=== PATIENT | female | born 1960 | race African-American/Black ===

== ENCOUNTER 2016-12-27 16:11 | Observation (INO) | payer OTHER ==
[~2016-12-27] VITALS: Ht 167.6 cm; Wt 90.0 kg
[~2016-12-27 16:11] MED LIST: AMLO5TAB2 PO; APIX5TAB PO; FLEC100T PO; HYDR-3516 PO; METO50TA PO; TOPA25TA8 PO; VALS320T6 PO; ZOLP10TA3 PO
[2016-12-27 16:13] VITALS: BP 201/113; PULSE 89; RESP 15; TEMP 97.7; O2SAT 100
--- NOTE | 2016-12-27 16:52 | PD ---
Physical Exam Time Seen by Provider: 16:50 Narrative 56 y/o female here with sob, dizziness for 4 days. Currently has a loop recorder, was called by Dr. Haq yesterday and was told that she has been having episodes of tachycardia as high as 200 on the loop recorder the past few days. Vital signs reviewed. Seen at triage desk. Awaiting bed placement. Data Data Last Documented VS Vital Signs Date Time Temp Pulse Resp B/P Pulse Ox O2 Delivery O2 Flow Rate FiO2 12/27/16 16:13 97.7 89 15 201/113 100 MDM Medical Record Reviewed: Yes Supervised Visit with ENEDINA: No Saul Craft Dec 27, 2016 16:52
--- NOTE | 2016-12-27 17:48 | RADRPT ---
EXAM DATE/TIME: 12/27/2016 17:15 [facility] COMPARISON: CHEST SINGLE AP, April 13, 2016, 22:05. INDICATIONS : Chest pain. MEDICAL HISTORY : Hypertension. SURGICAL HISTORY : Loop recorder. ENCOUNTER: Initial ACUITY: 4 - 6 days PAIN SCORE: 10/10 LOCATION: Bilateral chest FINDINGS: A single view of the chest demonstrates the lungs to be symmetrically aerated without evidence of mas s, infiltrate or effusion. Elevated right hemidiaphragm. Loop recorder device. The cardiomediastinal contours are unremarkable. Osseous structures are intact. CONCLUSION: 1. No active disease. No significant change from March 2016. Lawson Quinones MD on December 27, 2016 at 17:46 Board Certified Radiologist. This report was verified electronically.
[2016-12-27 17:54] LABS: AUTOMATED NEUTROPHIL # 4.8 TH/MM3 (1.8-7.7); BASOPHIL # 0.1 TH/MM3 (0-0.2); BASOPHIL % 0.7 % (0.0-2.0); EOSINOPHIL # 0.1 TH/MM3 (0-0.4); EOSINOPHIL % 0.7 % (0.0-4.0); HEMATOCRIT 37.1 % (35.0-46.0); HEMO FLAGS DIFF FINAL; LYMPH % 38.3 % (9.0-44.0); LYMPHOCYTE # 3.4 TH/MM3 (1.0-4.8); MEAN CELL VOLUME 71.3 FL (80.0-100.0); MEAN CORPUSCULAR HEMOGLOBIN 22.5 PG (27.0-34.0); MEAN CORPUSCULAR HGB CONC 31.6 % (32.0-36.0); MONO % 6.4 % (0.0-8.0); NEUT % 53.9 % (16.0-70.0); PLATELET COUNT 331 TH/MM3 (150-450); RED CELL DISTRIBUTION WIDTH 14.7 % (11.6-17.2); WHITE BLOOD COUNT 8.9 TH/MM3 (4.0-11.0)
[2016-12-27 18:05] LABS: ALT (GPT) 20 U/L (10-53); ANION GAP 6 MEQ/L (5-15); AST (GOT) 15 U/L (15-37); BICARBONATE 30.8 MEQ/L (21.0-32.0); BLOOD UREA NITROGEN 11 MG/DL (7-18); CHLORIDE 104 MEQ/L (98-107); GLOMERULAR FILTRATION RATE 104 ML/MIN (>89); POTASSIUM 3.2 MEQ/L (3.5-5.1); SODIUM (NA) 141 MEQ/L (136-145)
[2016-12-27 18:09] LABS: ALKALINE PHOSPHATASE 134 U/L (45-117); CREATINE KINASE 216 U/L (26-192); TOTAL BILIRUBIN ADULT 0.3 MG/DL (0.2-1.0)
[2016-12-27 18:52] VITALS: BP 195/91; PULSE 81; RESP 20; O2SAT 98
[2016-12-27] MEDS ORDERED: NITROGLYCERIN 0.4 MG SL 25 TABS/BTL SL ONE (18:55)
[2016-12-27] MEDS ORDERED: BUTA1CAP10 PO (19:01)
[2016-12-27 19:07] VITALS: BP 160/93; RESP 16; O2SAT 98
[2016-12-27] MEDS: NITROGLYCERIN 0.4 MG SL 25 TABS/BTL SL SCH ×2 (19:08→19:09)
[2016-12-27] MEDS ORDERED: METOPROLOL TARTRATE 25 MG TAB PO ONE (19:15)
[2016-12-27] MEDS ORDERED: APIXABAN 5 MG TABLET PO ONE (19:15)
[2016-12-27] MEDS ORDERED: ASPIRIN 81 MG CHEW TAB PO ONE (19:15)
[2016-12-27] MEDS ORDERED: NITROGLYCERIN 2% OINT 1 GM PACKET TOPICAL ONE (19:15)
--- NOTE | 2016-12-27 19:19 | PD ---
HPI Chief Complaint: Cardiac Complaint Time Seen by Provider: 19:00 Travel History International Travel<30 days: No Contact w/Intl Traveler<30days: No Traveled to known affect area: No History of Present Illness HPI Patient's 56-year-old female presenting to the emergency room for evaluation of dizziness, racing heart rate, shortness of breath and chest pain. Patient states she is a loop recorder and was advised by Dr. Castaneda to come to the emergency department yesterday because her heart rate was greater than 200, she was notified again today that she had a similar episode and was once again advised to come to the emergency department. Patient states that she started feeling these symptoms on Monday but ignored it throughout the weekend figuring that she would be called if there was any abnormality. She is currently reporting an 8 out of 10 anterior chest wall pain. She also reports a headache with the same intensity that is frontal and throbbing in nature. She denies any weakness, abdominal pain, recent fevers, visual changes. Her primary care provider is Dr. Gianfranco Hdez. Past medical history significant for hypertension , atrial fibrillation status post ablation in March 2016, implanted loop recorder. Patient is currently on Eliquis. [facility] Past Medical History Hx Anticoagulant Therapy: Yes (Eliquis) Arthritis: Yes Asthma: Yes Atrial Fibrillation: Yes Autoimmune Disease: No Blood Disorders: No Anxiety: No Depression: No Cancer: No Cardiac Catheterization: Yes (2015) High Cholesterol: Yes Chemotherapy: No Chest Pain: Yes Congestive Heart Failure: Yes COPD: No Cerebrovascular Accident: No Coronary Artery Disease: Yes Diabetes: Yes Patient Takes Glucophage: No Diminished Hearing: No Endocrine: No Gastrointestinal Disorders: Yes GERD: No Glaucoma: No Genitourinary: Yes Headaches: Yes Hepatitis: No Hiatal Hernia: No Hypertension: Yes Immune Disorder: No Implanted Vascular Access Dvce: No Kidney Stones: Yes Musculoskeletal: Yes Neurologic: Yes Psychiatric: No Reproductive: No Immunizations Current: Yes Migraines: No Myocardial Infarction: No Renal Failure: No Seizures: No Sickle Cell Disease: No Sleep Apnea: No Thyroid Disease: Yes Ulcer: No ?: Not Menopausal: Yes Past Surgical History Abdominal Surgery: Yes AICD: No Appendectomy: Yes Arteriovenous Shunt: No Cardiac Surgery: Yes (ATRIAL ABLATION/ LOOP RECORDER) Cholecystectomy: No Ear Surgery: No Endocrine Surgery: No Eye Surgery: No Genitourinary Surgery: Yes (TUMOR REMOVED LEFT KIDNEY MAY 2010) Hysterectomy: Yes Insulin Pump: No Joint Replacement: No Neurologic Surgery: No Oral Surgery: No Pacemaker: No Thoracic Surgery: No Other Surgery: Yes Social History Alcohol Use: No Tobacco Use: No Substance Use: No Allergies-Medications (Allergen,Severity, Reaction): Coded Allergies: Lisinopril (Verified Allergy, Severe, 12/27/16) muscle ache Percocet (Verified Adverse Reaction, Severe, 12/27/16) nausea and vomiting Reported Meds & Prescriptions Reported Meds & Active Scripts Active Reported Esgic (Epglnakukc-Dxjmbrkojioyc-Jdxgrlfe) 50-325-40 Mg Cap 1 Cap PO Q4H PRN Do not exceed 6 capsules/day. Zolpidem (Zolpidem Tartrate) 10 Mg Tab 10 Mg PO HS PRN Flecainide (Flecainide Acetate) 100 Mg Tab 100 Mg PO Q12HR Metoprolol Tartrate 50 Mg Tab 50 Mg PO TID Valsartan-Hydrochlorothiazide 320-25 Mg Tab 1 Tab PO DAILY Eliquis (Apixaban) 5 Mg Tab 5 Mg PO BID Amlodipine (Amlodipine Besylate) 5 Mg Tab 5 Mg PO DAILY Review of Systems Except as stated in HPI: all other systems reviewed are Neg Cardiovascular: Positive: Chest Pain or Discomfort, Tachycardia Respiratory: Positive: Shortness of Breath Gastrointestinal: Positive: Nausea, No: Vomiting, Abdominal Pain Musculoskeletal: No: Myalgias Neurologic: Positive: Dizziness, Headache, No: Change in Mentation, Slurred Speech Physical Exam Narrative GENERAL: Well-developed, well-nourished, alert female. Appears uncomfortable, in no acute distress. SKIN: Warm and dry. HEAD: Atraumatic. Normocephalic. EYES: Pupils equal and round. No scleral icterus. No injection or drainage. ENT: No nasal bleeding or discharge. Mucous membranes pink and moist. NECK: Trachea midline. No JVD. CARDIOVASCULAR: Regular rate and rhythm. RESPIRATORY: No accessory muscle use. Clear to auscultation. Breath sounds equal bilaterally. GASTROINTESTINAL: Abdomen soft, non-tender, nondistended. Hepatic and splenic margins not palpable. MUSCULOSKELETAL: Extremities without clubbing, cyanosis, or edema. No obvious deformities. NEUROLOGICAL: Awake and alert. No obvious cranial nerve deficits. Motor grossly within normal limits. Five out of 5 muscle strength in the arms and legs. Normal speech. PSYCHIATRIC: Appropriate mood and affect; insight and judgment normal. Data Data Last Documented VS Vital Signs Date Time Temp Pulse Resp B/P Pulse Ox O2 Delivery O2 Flow Rate FiO2 12/27/16 19:07 16 160/93 98 Room Air 12/27/16 18:52 81 12/27/16 16:13 97.7 Orders Electrocardiogram (12/27/16 16:53) Ckmb (Isoenzyme) Profile (12/27/16 16:53) Complete Blood Count With Diff (12/27/16 16:53) Comprehensive Metabolic Panel (12/27/16 16:53) Magnesium (Mg) (12/27/16 16:53) Troponin I (12/27/16 16:53) Chest, Single Ap (12/27/16 16:53) CKMB (12/27/16 17:25) CKMB% (12/27/16 17:25) Electrocardiogram (12/27/16 18:54) B-Type Natriuretic Peptide (12/27/16 18:54) Magnesium (Mg) (12/27/16 18:54) Ecg Monitoring (12/27/16 18:54) Bilateral Bp Monitoring (12/27/16 18:54) Iv Access Insert/Monitor (12/27/16 18:54) Oximetry (12/27/16 18:54) Nitroglycerin Sl (Nitrostat Sl) (12/27/16 19:00) Ct Brain W/O Iv Contrast(Rout) (12/27/16 ) Nitroglycerin Sl (Nitrostat Sl) (12/27/16 18:55) Aspirin Chew (Aspirin Chew) (12/27/16 19:15) Metoprolol Tartrate (Lopressor) (12/27/16 19:15) Apixaban (Eliquis) (12/27/16 19:15) Nitroglycerin 2% Oint (Nitroglycerin 2% (12/27/16 19:15) Amlodipine (Norvasc) (12/28/16 09:00) Apixaban (Eliquis) (12/27/16 21:00) Arom-Fyepe-Taam 325-50-40 Mg (Fioricet 3 (12/27/16 19:30) Flecainide (Tambocor) (12/27/16 21:00) Metoprolol Tartrate (Lopressor) (12/28/16 09:00) Zolpidem (Ambien) (12/27/16 19:30) (Nf) Valsartan-Hydrochlorothiazide (12/28/16 09:00) Admit Order (Ed Use Only) (12/27/16 19:19) Labs Laboratory Tests Test 12/27/16 17:25 White Blood Count 8.9 TH/MM3 Red Blood Count 5.20 MIL/MM3 Hemoglobin 11.7 GM/DL Hematocrit 37.1 % Mean Corpuscular Volume 71.3 FL Mean Corpuscular Hemoglobin 22.5 PG Mean Corpuscular Hemoglobin 31.6 % Concent Red Cell Distribution Width 14.7 % Platelet Count 331 TH/MM3 Mean Platelet Volume 9.6 FL Neutrophils (%) (Auto) 53.9 % Lymphocytes (%) (Auto) 38.3 % Monocytes (%) (Auto) 6.4 % Eosinophils (%) (Auto) 0.7 % Basophils (%) (Auto) 0.7 % Neutrophils # (Auto) 4.8 TH/MM3 Lymphocytes # (Auto) 3.4 TH/MM3 Monocytes # (Auto) 0.6 TH/MM3 Eosinophils # (Auto) 0.1 TH/MM3 Basophils # (Auto) 0.1 TH/MM3 CBC Comment DIFF FINAL Differential Comment Sodium Level 141 MEQ/L Potassium Level 3.2 MEQ/L Chloride Level 104 MEQ/L Carbon Dioxide Level 30.8 MEQ/L Anion Gap 6 MEQ/L Blood Urea Nitrogen 11 MG/DL Creatinine 0.70 MG/DL Estimat Glomerular Filtration 104 ML/MIN Rate Random Glucose 79 MG/DL Calcium Level 9.5 MG/DL Magnesium Level 2.0 MG/DL Total Bilirubin 0.3 MG/DL Aspartate Amino Transf 15 U/L (AST/SGOT) Alanine Aminotransferase 20 U/L (ALT/SGPT) Alkaline Phosphatase 134 U/L Total Creatine Kinase 216 U/L Creatine Kinase MB 1.0 NG/ML Creatine Kinase MB % 0.5 % Troponin I LESS THAN 0.02 NG/ML Total Protein 8.5 GM/DL Albumin 3.8 GM/DL MDM Medical Decision Making Medical Screen Exam Complete: Yes Emergency Medical Condition: Yes Interpretation(s) Last Impressions Chest X-Ray 12/27/16 7858 Signed Impressions: Service Date/Time: Tuesday, December 27, 2016 17:15 - CONCLUSION: 1. No active disease. No significant change from March 2016. Lawson Quinones MD Laboratory Tests Test 12/27/16 17:25 White Blood Count 8.9 TH/MM3 Red Blood Count 5.20 MIL/MM3 Hemoglobin 11.7 GM/DL Hematocrit 37.1 % Mean Corpuscular Volume 71.3 FL Mean Corpuscular Hemoglobin 22.5 PG Mean Corpuscular Hemoglobin 31.6 % Concent Red Cell Distribution Width 14.7 % Platelet Count 331 TH/MM3 Mean Platelet Volume 9.6 FL Neutrophils (%) (Auto) 53.9 % Lymphocytes (%) (Auto) 38.3 % Monocytes (%) (Auto) 6.4 % Eosinophils (%) (Auto) 0.7 % Basophils (%) (Auto) 0.7 % Neutrophils # (Auto) 4.8 TH/MM3 Lymphocytes # (Auto) 3.4 TH/MM3 Monocytes # (Auto) 0.6 TH/MM3 Eosinophils # (Auto) 0.1 TH/MM3 Basophils # (Auto) 0.1 TH/MM3 CBC Comment DIFF FINAL Differential Comment Sodium Level 141 MEQ/L Potassium Level 3.2 MEQ/L Chloride Level 104 MEQ/L Carbon Dioxide Level 30.8 MEQ/L Anion Gap 6 MEQ/L Blood Urea Nitrogen 11 MG/DL Creatinine 0.70 MG/DL Estimat Glomerular Filtration 104 ML/MIN Rate Random Glucose 79 MG/DL Calcium Level 9.5 MG/DL Magnesium Level 2.0 MG/DL Total Bilirubin 0.3 MG/DL Aspartate Amino Transf 15 U/L (AST/SGOT) Alanine Aminotransferase 20 U/L (ALT/SGPT) Alkaline Phosphatase 134 U/L Total Creatine Kinase 216 U/L Creatine Kinase MB 1.0 NG/ML Creatine Kinase MB % 0.5 % Troponin I LESS THAN 0.02 NG/ML Total Protein 8.5 GM/DL Albumin 3.8 GM/DL Vital Signs Date Time Temp Pulse Resp B/P Pulse Ox O2 Delivery O2 Flow Rate FiO2 12/27/16 18:52 81 20 195/91 98 12/27/16 18:52 72 24 99 Room Air 12/27/16 16:13 97.7 89 15 201/113 100 Differential Diagnosis ACS versus [place] versus Nstemi versus CVA versus hypertensive urgency versus other Narrative Course Patient is a 56-year-old female presenting to the emergency department for evaluation of elevated heart rate on the loop recorder. Upon initial assessment patient was actively having anterior chest wall pain. EKG performed in triage shows sinus rhythm with a rate of 69. IV access established, patient placed on telemetry monitoring and continuous pulse oximetry. She was hypertensive and complaining of a headache. Patient was given sublingual nitroglycerin 2 with significant improvement in the chest pain. Repeat EKG shows sinus rhythm with a rate 76. Labs and imaging were ordered while patient was in triage. CT scan of the brain ordered due to patient's complaint of headache. Chest x-ray shows no active disease, this was read by the radiologist CBC with no acute abnormalities Chemistry with potassium 3.2, CK 216, initial set of cardiac enzymes are negative. CT scan of the brain read by the radiologist shows no acute findings. Discussed findings with Dr. Taylor who was medication aide for Dr. Haq. He requested patient be admitted to medicine, Nitropaste, aspirin and a beta junaid. These orders were placed. Discussed with Dr. Crouch who accepted admission. Admit orders place. Diagnosis Primary Impression: Acute coronary syndrome Additional Impression: HTN (hypertension) Qualified Code: I10 - Hypertension, unspecified type Admitting Information Admitting Physician Requests: Admit Condition: Stable Mary Kearney Dec 27, 2016 19:19
--- NOTE | 2016-12-27 19:26 | HHI.HP ---
HPI Service [facility] Primary Care Physician Gianfranco Hdez M.D. Admission Diagnosis ACS Diagnoses: Travel History International Travel<30 Days: No Contact w/Intl Traveler <30 Da: No Traveled to Known Affected Are: No History of Present Illness This is a very pleasant 56-year-old female patient who sees insurance auditor Dr. Castaneda. She had a atrial fibrillation ablation by Dr. Velázquez several years ago. The patient has been having problems with chest pain and palpitations for the last 4 days prior to her presentation to the emergency department at [facility] on 12/27/16. She initially neglected it thinking that it will pass away. The patient wears a loop recorder. The loop recorder gave an alarm at her insurance auditor office and she was contacted by the insurance auditor on 12/26/16 to come t to the hospital. She did not . She was contacted again on 12/27/16, this time she gained to the emergency department. She was seen by the undersigned and examined on 12/27/16 8 PM in room F 58. She is alert and oriented. She had central chest pressure relieved after 2 sublingual nitroglycerin. She had some lightheadedness worse on standing with some nausea but no vomiting. No fever chills or diaphoresis. The chest pressure is central and does not radiate. It is almost constant. In fact she was able to walk around the room during this interview. Review of Systems Other As detailed above. 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 Zolpidem (Zolpidem Tartrate) 10 Mg Tab 10 Mg PO HS PRN Flecainide (Flecainide Acetate) 100 Mg Tab 100 Mg PO Q12HR Metoprolol Tartrate 50 Mg Tab 50 Mg PO TID Valsartan-Hydrochlorothiazide 320-25 Mg Tab 1 Tab PO DAILY Eliquis (Apixaban) 5 Mg Tab 5 Mg PO BID Amlodipine (Amlodipine Besylate) 5 Mg Tab 5 Mg PO DAILY Allergies: Coded Allergies: Lisinopril (Verified Allergy, Severe, 12/27/16) muscle ache Percocet (Verified Adverse Reaction, Severe, 12/27/16) nausea and vomiting Family History Reviewed but not contributory Social History No smoking or excessive alcohol or illicit drug use Physical Exam Vital Signs Vital Signs Date Time Temp Pulse Resp B/P Pulse Ox O2 Delivery O2 Flow Rate FiO2 12/27/16 18:52 81 20 195/91 98 12/27/16 18:52 72 24 99 Room Air 12/27/16 16:13 97.7 89 15 201/113 100 Physical Exam GENERAL: This is a pleasant, overweight , well-developed patient, in no apparent distress. SKIN: No rashes, ecchymoses or lesions. Cool and dry. HEAD: Atraumatic. Normocephalic. No temporal or scalp tenderness. EYES: Pupils equal round and reactive. Extraocular motions intact. No scleral icterus. No injection or drainage. ENT: Nose without bleeding, purulent drainage or septal hematoma. Throat without erythema, tonsillar hypertrophy or exudate. Uvula midline. Airway patent. NECK: Trachea midline. No JVD or lymphadenopathy. Supple, nontender, no meningeal signs. CARDIOVASCULAR: Tachycardic, irregular . RESPIRATORY: Clear to auscultation. Breath sounds equal bilaterally. No wheezes , rales, or rhonchi. GASTROINTESTINAL: Abdomen soft, non-tender, nondistended. No hepato-splenomegaly , or palpable masses. No guarding. MUSCULOSKELETAL: Extremities without clubbing, cyanosis, or edema. No joint tenderness, effusion, or edema noted. No calf tenderness. Negative Homans sign bilaterally. NEUROLOGICAL: Awake and alert. Cranial nerves II through XII intact. Normal speech. Laboratory Laboratory Tests Test 12/27/16 17:25 White Blood Count 8.9 Red Blood Count 5.20 Hemoglobin 11.7 Hematocrit 37.1 Mean Corpuscular Volume 71.3 Mean Corpuscular Hemoglobin 22.5 Mean Corpuscular Hemoglobin 31.6 Concent Red Cell Distribution Width 14.7 Platelet Count 331 Mean Platelet Volume 9.6 Neutrophils (%) (Auto) 53.9 Lymphocytes (%) (Auto) 38.3 Monocytes (%) (Auto) 6.4 Eosinophils (%) (Auto) 0.7 Basophils (%) (Auto) 0.7 Neutrophils # (Auto) 4.8 Lymphocytes # (Auto) 3.4 Monocytes # (Auto) 0.6 Eosinophils # (Auto) 0.1 Basophils # (Auto) 0.1 CBC Comment DIFF FINAL Differential Comment Sodium Level 141 Potassium Level 3.2 Chloride Level 104 Carbon Dioxide Level 30.8 Anion Gap 6 Blood Urea Nitrogen 11 Creatinine 0.70 Estimat Glomerular Filtration 104 Rate Random Glucose 79 Calcium Level 9.5 Magnesium Level 2.0 Total Bilirubin 0.3 Aspartate Amino Transf 15 (AST/SGOT) Alanine Aminotransferase 20 (ALT/SGPT) Alkaline Phosphatase 134 Total Creatine Kinase 216 Creatine Kinase MB 1.0 Creatine Kinase MB % 0.5 Troponin I LESS THAN 0.02 Total Protein 8.5 Albumin 3.8 Result Diagram: 12/27/16 1725 12/27/16 1725 Imaging Last 24 hours Impressions Chest X-Ray 12/27/16 1653 Signed Impressions: Service Date/Time: Tuesday, December 27, 2016 17:15 - CONCLUSION: 1. No active disease. No significant change from March 2016. Lawson Quinones MD Assessment and Plan Assessment and Plan Assessment Chest pain, rule out acute coronary event Persistent tachycardia at home, none on the hospital Poor compliance Atrial fibrillation on anticoagulation Hypokalemia Management The patient has been placed on observation Serial CKs and troponins are ordered Her insurance auditor is consulted Potassium is being replaced Home medications resumed otherwise The patient was told that she needs a reevaluation for possible repeat ablation Discussed with patient in detail Discussed with emergency provider Discussed with nurse 35 minutes Gay Crouch MD Dec 27, 2016 19:26
[2016-12-27] MEDS ORDERED: LACTULOSE SYRUP 20 GM/30 ML CUP PO PRN (19:30)
[2016-12-27] MEDS ORDERED: SENNOSIDES 8.6 MG TAB PO PRN (19:30)
[2016-12-27] MEDS ORDERED: BISACODYL 10 MG SUPP RECTAL PRN (19:30)
[2016-12-27] MEDS ORDERED: MAGNESIUM HYDROXIDE SUSP 30 ML CUP PO PRN (19:30)
[2016-12-27] MEDS ORDERED: NALOXONE HCL 0.4 MG/ML AMP IV PRN (19:30)
[2016-12-27] MEDS ORDERED: ONDANSETRON HCL 4 MG/2 ML VIAL IVP PRN (19:30)
[2016-12-27] MEDS ORDERED: SODIUM CHLORIDE 0.9% FLUSH 10 ML FLUSH IV FLUSH PRN (19:30)
--- NOTE | 2016-12-27 19:39 | RADRPT ---
EXAM DATE/TIME: 12/27/2016 19:21 [facility] COMPARISON: No previous studies available for comparison. INDICATIONS : Cephalgia and dizziness. RADIATION DOSE: 56.77 CTDIvol (mGy) MEDICAL HISTORY : Hypertension. Congestive heart failure. SURGICAL HISTORY : Cardiac cath. ENCOUNTER: Initial ACUITY: 1 day PAIN SCALE: 10/10 LOCATION: cranial TECHNIQUE: Multiple contiguous axial images were obtained of the head. Using automated exposure control and adj ustment of the mA and/or kV according to patient size, radiation dose was kept as low as reasonably a chievable to obtain optimal diagnostic quality images. DICOM format image data is available electro nically for review and comparison. FINDINGS: CEREBRUM: The ventricles are normal for age. No evidence of midline shift, mass lesion, hemorrhage or acute in farction. No extra-axial fluid collections are seen. POSTERIOR FOSSA: The cerebellum and brainstem are intact. The 4th ventricle is midline. The cerebellopontine angle i s unremarkable. EXTRACRANIAL: The visualized portion of the orbits is intact. SKULL: The calvaria is intact. No evidence of skull fracture. CONCLUSION: 1. No acute intracranial abnormalities. Lawson Quinones MD on December 27, 2016 at 19:37 Board Certified Radiologist. This report was verified electronically.
[2016-12-27 20:51] LABS: CREATINE KINASE 316 U/L (26-192)
[2016-12-27 20:58] VITALS: BP 170/94; PULSE 74; RESP 18; TEMP 98.4; O2SAT 98
[2016-12-27] MEDS: APIXABAN 5 MG TABLET PO SCH (21:00)
[2016-12-27] MEDS: DOCUSATE SODIUM 50 MG/SENNA 8.6 MG TAB PO SCH (21:00)
[2016-12-27 21:55] VITALS: PULSE 50
[2016-12-27] MEDS: FLECAINIDE ACETATE 100 MG TAB PO SCH (21:59)
[2016-12-27] MEDS: SODIUM CHLORIDE 0.9% FLUSH 10 ML FLUSH IV FLUSH SCH (21:59)
[2016-12-27] MEDS: ZOLPIDEM TARTRATE 10 MG TAB PO PRN (22:03)
[2016-12-27] MEDS ORDERED: cloNIDine HCL 0.1 MG TAB PO PRN (23:00)
[2016-12-28] VITALS (13 sets, daily range): BP systolic 123–157; BP diastolic 74–93; PULSE 50–66; RESP 16–20; TEMP 97.8–98.8; O2SAT 96–100
[2016-12-28 01:48] LABS: AUTOMATED NEUTROPHIL # 4.8 TH/MM3 (1.8-7.7); BASOPHIL # 0.1 TH/MM3 (0-0.2); BASOPHIL % 0.7 % (0.0-2.0); EOSINOPHIL # 0.1 TH/MM3 (0-0.4); EOSINOPHIL % 0.8 % (0.0-4.0); HEMATOCRIT 33.3 % (35.0-46.0); HEMO FLAGS DIFF FINAL; LYMPH % 39.2 % (9.0-44.0); LYMPHOCYTE # 3.5 TH/MM3 (1.0-4.8); MEAN CELL VOLUME 71.4 FL (80.0-100.0); MEAN CORPUSCULAR HEMOGLOBIN 23.1 PG (27.0-34.0); MEAN CORPUSCULAR HGB CONC 32.4 % (32.0-36.0); MONO % 6.3 % (0.0-8.0); PLATELET COUNT 287 TH/MM3 (150-450); RED BLOOD COUNT 4.67 MIL/MM3 (4.00-5.30); RED CELL DISTRIBUTION WIDTH 14.8 % (11.6-17.2)
[2016-12-28 01:57] LABS: ANION GAP 7 MEQ/L (5-15); BICARBONATE 28.8 MEQ/L (21.0-32.0); BLOOD UREA NITROGEN 15 MG/DL (7-18); CHLORIDE 107 MEQ/L (98-107); GLOMERULAR FILTRATION RATE 88 ML/MIN (>89); POTASSIUM 3.2 MEQ/L (3.5-5.1); SODIUM (NA) 143 MEQ/L (136-145)
[2016-12-28 02:00] LABS: CREATINE KINASE 156 U/L (26-192)
[2016-12-28] MEDS ORDERED: POTASSIUM CHLORIDE 25 MEQ EFFERVESCENT TAB PO ONE (08:00)
--- NOTE | 2016-12-28 08:04 | HHI.PR ---
Subjective Subjective Remarks chest pain and palpitations overnight, none now tele reviewed, HR 59, SR. One short episode of Afib with RVR no sob no acute changes overnight Review of Systems Constitutional Constitutional Remarks 12 point ros completed, negative except as noted above Vitals/Results Vital Signs Vital Signs Date Time Temp Pulse Resp B/P Pulse Ox O2 Delivery O2 Flow Rate FiO2 12/28/16 05:50 98.4 58 18 133/74 100 12/28/16 01:17 98.7 64 18 123/74 97 12/28/16 00:00 59 12/27/16 21:55 50 12/27/16 20:58 98.4 74 18 170/94 98 12/27/16 19:07 16 160/93 98 Room Air 12/27/16 18:52 81 20 195/91 98 12/27/16 18:52 72 24 99 Room Air 12/27/16 16:13 97.7 89 15 201/113 100 CBC/BMP: 12/28/16 0129 12/28/16 0129 Lab Results Laboratory Tests Test 12/27/16 12/27/16 12/28/16 17:25 19:20 01:29 White Blood Count 8.9 TH/MM3 9.0 TH/MM3 Red Blood Count 5.20 MIL/MM3 4.67 MIL/MM3 Hemoglobin 11.7 GM/DL 10.8 GM/DL Hematocrit 37.1 % 33.3 % Mean Corpuscular Volume 71.3 FL 71.4 FL Mean Corpuscular Hemoglobin 22.5 PG 23.1 PG Mean Corpuscular Hemoglobin 31.6 % 32.4 % Concent Red Cell Distribution Width 14.7 % 14.8 % Platelet Count 331 TH/MM3 287 TH/MM3 Mean Platelet Volume 9.6 FL 9.2 FL Neutrophils (%) (Auto) 53.9 % 53.0 % Lymphocytes (%) (Auto) 38.3 % 39.2 % Monocytes (%) (Auto) 6.4 % 6.3 % Eosinophils (%) (Auto) 0.7 % 0.8 % Basophils (%) (Auto) 0.7 % 0.7 % Neutrophils # (Auto) 4.8 TH/MM3 4.8 TH/MM3 Lymphocytes # (Auto) 3.4 TH/MM3 3.5 TH/MM3 Monocytes # (Auto) 0.6 TH/MM3 0.6 TH/MM3 Eosinophils # (Auto) 0.1 TH/MM3 0.1 TH/MM3 Basophils # (Auto) 0.1 TH/MM3 0.1 TH/MM3 CBC Comment DIFF FINAL DIFF FINAL Differential Comment Sodium Level 141 MEQ/L 143 MEQ/L Potassium Level 3.2 MEQ/L 3.2 MEQ/L Chloride Level 104 MEQ/L 107 MEQ/L Carbon Dioxide Level 30.8 MEQ/L 28.8 MEQ/L Anion Gap 6 MEQ/L 7 MEQ/L Blood Urea Nitrogen 11 MG/DL 15 MG/DL Creatinine 0.70 MG/DL 0.81 MG/DL Estimat Glomerular Filtration 104 ML/MIN 88 ML/MIN Rate Random Glucose 79 MG/DL 111 MG/DL Calcium Level 9.5 MG/DL 8.8 MG/DL Magnesium Level 2.0 MG/DL 2.2 MG/DL Total Bilirubin 0.3 MG/DL Aspartate Amino Transf 15 U/L (AST/SGOT) Alanine Aminotransferase 20 U/L (ALT/SGPT) Alkaline Phosphatase 134 U/L Total Creatine Kinase 216 U/L 316 U/L 156 U/L Creatine Kinase MB 1.0 NG/ML Creatine Kinase MB % 0.5 % Troponin I LESS THAN 0.02 LESS THAN 0.02 LESS THAN 0.02 NG/ML NG/ML NG/ML Total Protein 8.5 GM/DL Albumin 3.8 GM/DL B-Type Natriuretic Peptide 19 PG/ML Physical Exam General General Appearance: Well Developed, Well Nourished, No Acute Distress, Comfortable Eyes Eye Exam: Pupils Equal, Pupils Reactive Ears & Nose Ears & Nose Exam: Nasal Mucosa [place] Throat Throat Exam: Oral Mucosa [place] & Moist Neck Neck Exam: Neck Supple, Trachea Midline Pulmonary Resp Exam: Crackles Cardiology CV Exam: Regular, Good Perfusion Gastrointestinal/Abdomen GI Exam: Soft, Non-Tender, Non-Distended Musculoskeletal MS Exam: Joints Intact Integumentary Skin Exam: Warm, Dry Extremeties Extremities Exam: No Edema, Pedal Pulses Palpable Neurologic Neuro Exam: Alert, Awake, Oriented, Speech Clear, Moving All Extremities, No Focal Deficits Psychiatric Psych Exam: Appropriate Responses VTE Prophylaxis VTE Prophylaxis Device: SCDs VTE Remarks Eliquis Assessment/Plan Problem List: (1) Chest pain (2) Atrial fibrillation (3) hx ablation (4) Hyperlipidemia (5) DM (diabetes mellitus) (6) HTN (hypertension) (7) Palpitations Assessment/Plan 55 year old female with c/o CP, racing HR, hx ablation CP, R/O ACS -cardiology consult pending -CE x 3 negative Afib, S/P ablation 04/07/16 has implantable loop recorder HR stable overnight, one episode of afib RVR. HR 50-60s -Continue Tambocor -on Lopressor 50 mg PO TID, will decrease to 25 mg, HR down to 50s -continue Eliquis HTN -continue home meds Hyperlipidemia -Resume home meds DM, II diet controlled, stable -monitor, diabetic diet Replace K continue with Eliquis for DVT prophylaxis will wait for card recommendations D/W RN D/W Dr. Crouch D/W pt. This patient was seen by myself and Dr. Gan, this note is written on his behalf. Problem Qualifiers (1) Chest pain: (2) Atrial fibrillation: Qualified Code: I48.91 - Atrial fibrillation, unspecified type (3) Hyperlipidemia: Qualified Code: E78.5 - Hyperlipidemia, unspecified hyperlipidemia type (4) DM (diabetes mellitus): Qualified Code: E11.9 - Type 2 diabetes mellitus without complication, without long-term current use of insulin (5) HTN (hypertension): Qualified Code: I10 - Hypertension, unspecified type Vera Cabello Dec 28, 2016 08:04
--- NOTE | 2016-12-28 08:26 | EKG ---
Date Performed: 12/27/2016 Time Performed: 18:59:30 PTAGE: 56 years EKG: Sinus rhythm NORMAL ECG PREVIOUS TRACING : 12/27/2016 17.10 DOCTOR: Claudio Jefferson Interpretating Date/Time 12/28/2016 08:24:37
--- NOTE | 2016-12-28 08:29 | EKG ---
Date Performed: 12/27/2016 Time Performed: 17:10:40 PTAGE: 56 years EKG: Sinus rhythm NORMAL ECG PREVIOUS TRACING : 04/14/2016 04.32 DOCTOR: Claudio Jefferson Interpretating Date/Time 12/28/2016 08:26:56
[2016-12-28] MEDS ORDERED: PILL SPLITTER OTHER PRN (08:30)
[2016-12-28] MEDS: APIXABAN 5 MG TABLET PO SCH ×2 (08:35→20:47)
[2016-12-28] MEDS: METOPROLOL TARTRATE 50 MG TAB PO SCH ×3 (08:35→18:21)
[2016-12-28] MEDS: HYDROCHLOROTHIAZIDE 25 MG TAB PO SCH (08:35)
[2016-12-28] MEDS: SODIUM CHLORIDE 0.9% FLUSH 10 ML FLUSH IV FLUSH SCH ×2 (08:35→20:47)
[2016-12-28] MEDS: VALSARTAN 160 MG TAB PO SCH (08:35)
[2016-12-28] MEDS: DOCUSATE SODIUM 50 MG/SENNA 8.6 MG TAB PO SCH ×2 (08:36→20:47)
[2016-12-28] MEDS: amLODIPine BESYLATE 5 MG TAB PO SCH (08:36)
[2016-12-28] MEDS: FLECAINIDE ACETATE 100 MG TAB PO SCH ×2 (08:36→20:47)
[2016-12-28] MEDS: ACETAMIN 325 MG/BUTALBITAL 50 MG/CAFFEINE 40 MG TAB PO PRN ×2 (08:43→16:57)
[2016-12-28] MEDS ORDERED: METOPROLOL TARTRATE 50 MG TAB PO SCH (09:00)
[2016-12-28] MEDS ORDERED: NON-FORMULARY DRUG (Valsartan-Hydrochlorothiazide 1 TAB) PO SCH (09:00)
[2016-12-28] MEDS ORDERED: POTASSIUM CHLORIDE 25 MEQ EFFERVESCENT TAB NG SCH (10:15)
[2016-12-28] MEDS: POTASSIUM CHLORIDE 25 MEQ EFFERVESCENT TAB NG SCH (20:47)
[2016-12-28] MEDS: ZOLPIDEM TARTRATE 10 MG TAB PO PRN (23:06)
[2016-12-29] VITALS (8 sets, daily range): BP systolic 121–158; BP diastolic 71–95; PULSE 50–73; RESP 16–20; TEMP 97.8–98.8; O2SAT 98–100
[2016-12-29] MEDS: POTASSIUM CHLORIDE 25 MEQ EFFERVESCENT TAB NG SCH (09:00)
[2016-12-29] MEDS: METOPROLOL TARTRATE 50 MG TAB PO SCH ×3 (09:00→18:00)
[2016-12-29] MEDS: DOCUSATE SODIUM 50 MG/SENNA 8.6 MG TAB PO SCH ×2 (09:00→20:04)
--- NOTE | 2016-12-29 10:02 | HHI.PR ---
Subjective Subjective Remarks Awake resting in bed Does complain of palpitations often known and a heavy sensation in her chest which seems to wax and wane Does appear to be mildly anxious Afebrile, heart rate in the 50s beta junaid has already been decreased, will monitor (Reyna Nevarez) Review of Systems Constitutional Constitutional: Fatigue, Weakness Constitutional Remarks 10 point ROS done positives noted (Reyna Nevarez) Pulmonary Respiratory: Shortness of Breath (mild low volumes) (Reyna Nevarez) Cardiology CV: Chest Pain, Palpitations (Reyna Nevarez) Musculoskeletal MS: Weakness (Reyna Nevarez) Psychiatric Psychiatric: Normal Mood, Anxiety (mild) (Reyna Nevarez) Vitals/Results Intake & Output 12/28/16 12/28/16 12/29/16 14:59 22:59 06:59 Intake Total 960 ml Balance 960 ml Intake Oral 960 ml # Voids 3 2 # Bowel Movements 1 Vital Signs Vital Signs Date Time Temp Pulse Resp B/P Pulse Ox O2 Delivery O2 Flow Rate FiO2 12/29/16 08:23 98.2 55 16 150/84 99 12/29/16 04:21 97.8 50 20 121/71 98 12/29/16 04:08 57 12/29/16 00:18 59 12/28/16 23:37 97.9 51 20 132/86 99 12/28/16 20:10 97.8 53 20 144/78 98 12/28/16 20:08 55 12/28/16 16:03 50 12/28/16 15:32 98.8 55 16 139/86 99 12/28/16 12:04 53 12/28/16 11:32 97.8 55 18 147/93 98 (Reyna Nevarez) CBC/BMP: 12/28/16 0129 12/28/16 0129 Imaging Remarks Last Impressions Chest X-Ray 12/27/16 1653 Signed Impressions: Service Date/Time: Tuesday, December 27, 2016 17:15 - CONCLUSION: 1. No active disease. No significant change from March 2016. Lawson Quinones MD Head CT 12/27/16 0000 Signed Impressions: Service Date/Time: Tuesday, December 27, 2016 19:21 - CONCLUSION: 1. No acute intracranial abnormalities. Lawson Quinones MD (Geri,Reyna M. COAL DRIER OPERATOR) Physical Exam General General Appearance: Well Developed, Well Nourished, No Acute Distress, Comfortable (Geri,Reyna M. COAL DRIER OPERATOR) Eyes Eye Exam: Pupils Equal, Pupils Reactive (Geri,Reyna M. COAL DRIER OPERATOR) Ears & Nose Ears & Nose Exam: Nasal Mucosa [place] (Geri,Reyna M. COAL DRIER OPERATOR) Throat Throat Exam: Oral Mucosa [place] & Moist ([place],Reyna M. COAL DRIER OPERATOR) Neck Neck Exam: Neck Supple, Trachea Midline (Geri,Reyna M. COAL DRIER OPERATOR) Pulmonary Resp Exam: Crackles (Geri,Reyna M. COAL DRIER OPERATOR) Cardiology CV Exam: Regular, Good Perfusion ([place],Reyna M. COAL DRIER OPERATOR) Gastrointestinal/Abdomen GI Exam: Soft, Non-Tender, Non-Distended (Geri,Reyna M. COAL DRIER OPERATOR) Musculoskeletal MS Exam: Joints Intact (Geri,Reyna M. COAL DRIER OPERATOR) Integumentary Skin Exam: Warm, Dry ([place],Reyna M. COAL DRIER OPERATOR) Extremeties Extremities Exam: No Edema, Pedal Pulses Palpable ([place],Reyna M. COAL DRIER OPERATOR) Neurologic Neuro Exam: Alert, Awake, Oriented, Speech Clear, Moving All Extremities, No Focal Deficits ([place],Reyna M. COAL DRIER OPERATOR) Psychiatric Psych Exam: Appropriate Responses (Geri,Reyna M. COAL DRIER OPERATOR) VTE Prophylaxis VTE Prophylaxis Device: SCDs (Geri,Reyna M. COAL DRIER OPERATOR) Assessment/Plan Problem List: (1) Chest pain (2) Atrial fibrillation (3) hx ablation (4) Hyperlipidemia (5) DM (diabetes mellitus) (6) HTN (hypertension) (7) Palpitations Assessment/Plan V ital signs reviewed, heart rate 50s to 60s, afebrile other trends normal Labs reviewed Anemia stable at 10.8 probably secondary to chronic disease Recheck labs in the morning, to recheck potassium CP, R/O ACS -cardiology consult, patient states she saw late last night about 10:00. Possibly contemplating ablation, has loop recorder on Currently sinus rhythm in the 70s, bradycardia noted this morning heart rate in the 50s, she does state that she has some pressure sensation chest pain and does feel occasional palpitations, Lopressor has been decreased, patient is asymptomatic we'll continue to monitor Afib, S/P ablation 04/07/16 HTN , Hyperlipidemia, DM, II diet controlled, stable Medical management, monitor Accu-Cheks and diabetic diet Hypokalemia, has had tach potassium replacement Will recheck labs in the morning D/W RN D/W Dr. Crouch D/W pt., seen on his behalf (Reyna Nevarez) Assessment/Plan seen, examined by myself, Dr Crouch, today Discussed with patient Discussed with public speaking teacher Dr. Liya NELSON DE Stress test was negative Discharge home She needs to follow-up for his 7 hour epicardial ablation procedure, needs to be scheduled Discussed with mid level provider The exam, history, and the medical decision-making described in the above note were completed with the assistance of the mid-level provider. I reviewed the findings presented. I attest that I had a [id number] encounter with the patient on the same day, and personally performed and documented my assessment and findings in the medical record. Critical Care Minutes: 40 (Gay Crouch MD) Problem Qualifiers (1) Chest pain: (2) Atrial fibrillation: Qualified Code: I48.91 - Atrial fibrillation, unspecified type (3) Hyperlipidemia: Qualified Code: E78.5 - Hyperlipidemia, unspecified hyperlipidemia type (4) DM (diabetes mellitus): Qualified Code: E11.9 - Type 2 diabetes mellitus without complication, without long-term current use of insulin (5) HTN (hypertension): Qualified Code: I10 - Hypertension, unspecified type Reyna Nevarez Dec 29, 2016 10:02 Gay Crouch MD Dec 29, 2016 20:08
[2016-12-29] MEDS: SODIUM CHLORIDE 0.9% FLUSH 10 ML FLUSH IV FLUSH SCH ×2 (10:07→20:05)
[2016-12-29] MEDS: HYDROCHLOROTHIAZIDE 25 MG TAB PO SCH (10:07)
[2016-12-29] MEDS: VALSARTAN 160 MG TAB PO SCH (10:07)
[2016-12-29] MEDS: FLECAINIDE ACETATE 100 MG TAB PO SCH ×2 (10:08→20:05)
[2016-12-29] MEDS: amLODIPine BESYLATE 5 MG TAB PO SCH (10:08)
[2016-12-29] MEDS: APIXABAN 5 MG TABLET PO SCH ×2 (12:44→20:04)
[2016-12-29] MEDS: POTASSIUM CHLORIDE 10 MEQ CONTROLLED RELEASE TAB PO SCH ×2 (12:45→20:04)
--- NOTE | 2016-12-29 14:23 | HHI.PR ---
Subjective Remarks Some chest pain earlier Objective Vital Signs Date Time Temp Pulse Resp B/P Pulse Ox O2 Delivery O2 Flow Rate FiO2 12/29/16 12:11 98.6 55 16 158/95 100 12/29/16 08:23 98.2 55 16 150/84 99 12/29/16 04:21 97.8 50 20 121/71 98 12/29/16 04:08 57 12/29/16 00:18 59 12/28/16 23:37 97.9 51 20 132/86 99 12/28/16 20:10 97.8 53 20 144/78 98 12/28/16 20:08 55 12/28/16 16:03 50 12/28/16 15:32 98.8 55 16 139/86 99 I/O 12/28/16 12/28/16 12/28/16 12/29/16 12/29/16 12/29/16 07:00 15:00 23:00 07:00 15:00 23:00 Intake Total 960 ml Balance 960 ml Intake Oral 960 ml # Voids 1 3 2 # Bowel Movements 1 Result Diagram: 12/28/16 0129 12/28/16 0129 Imaging Alert, fully oriented Lungs: ventilated Heart: S1, S2 regular, no gallop abdomen: soft, no mass ext: no edema Last Impressions Chest X-Ray 12/27/16 1653 Signed Impressions: Service Date/Time: Tuesday, December 27, 2016 17:15 - CONCLUSION: 1. No active disease. No significant change from March 2016. Lawson Quinones MD Head CT 12/27/16 0000 Signed Impressions: Service Date/Time: Tuesday, December 27, 2016 19:21 - CONCLUSION: 1. No acute intracranial abnormalities. Lawson Quinones MD Current Medications Medications (Trade) Dose Ordered Sig/Robert Route Start Time Stop Time Status Last Admin (Norvasc) 5 mg DAILY PO 12/28/16 09:00 12/29/16 10:08 (Eliquis) 5 mg BID PO 12/27/16 21:00 12/29/16 12:44 (Fioricet 325-50-40) 1 tab Q4H PRN PO 12/27/16 19:30 12/28/16 16:57 (Tambocor) 100 mg Q12HR PO 12/27/16 21:00 12/29/16 10:08 (Ambien) 10 mg HS PRN PO 12/27/16 19:30 12/28/16 23:06 (NS Flush) 2 ml UNSCH PRN IV FLUSH 12/27/16 19:30 (NS Flush) 2 ml BID IV FLUSH 12/27/16 21:00 12/29/16 10:07 (Zofran Inj) 4 mg Q6H PRN IVP 12/27/16 19:30 (Narcan Inj) 0.4 mg UNSCH PRN IV 12/27/16 19:30 (Vianca-Colace) 1 tab BID PO 12/27/16 21:00 12/28/16 08:36 (Milk Of Magnesia Liq) 30 ml Q12H PRN PO 12/27/16 19:30 (Senokot) 17.2 mg Q12H PRN PO 12/27/16 19:30 (Dulcolax Supp) 10 mg DAILY PRN RECTAL 12/27/16 19:30 (Lactulose Liq) 30 ml DAILY PRN PO 12/27/16 19:30 (Diovan) 320 mg DAILY PO 12/28/16 09:00 12/29/16 10:07 (Hydrodiuril) 25 mg DAILY PO 12/28/16 09:00 12/29/16 10:07 (Catapres) 0.1 mg Q6H PRN PO 12/27/16 23:00 (Lopressor) 25 mg TID PO 12/28/16 09:00 12/28/16 18:21 (Pill Splitter) 1 ea UNSCH PRN OTHER 12/28/16 08:30 (KCl) 30 meq Q12HR PO 12/29/16 13:00 12/29/16 12:45 Assessment and Plan Problem List: (1) Atrial fibrillation Status: Acute Plan: In sinus rhythm No tachy recorded can be DH Case discussed with patient. Will be readmitted if necessary for EP ablation (2) Chest pain Status: Acute Plan: Some chest pain reported. Nuclear stress study requested Continue on current meds Problem Qualifiers (1) Atrial fibrillation: Qualified Code: I48.91 - Atrial fibrillation, unspecified type (2) Chest pain: Amelia Velázquez MD Dec 29, 2016 14:23
[2016-12-29] MEDS ORDERED: REGADENOSON INJ 0.4 MG/5 ML SYR ONE (14:29)
--- NOTE | 2016-12-29 15:16 | MB ---
cc: BEN DAVIS M.D. DATE OF CONSULTATION: 12/28/2016 REASON FOR CONSULTATION Tachyarrhythmia, chest pain. HISTORY OF PRESENT ILLNESS Mrs. Marte is a 56-year-old -[place] female with history of atrial fibrillation. She has previous ablation. She has redo procedure. She was put on flecainide and metoprolol. She was asymptomatic for a long period. She has a loop recorder. Apparently, tachyarrhythmia seen in the loop, she was referred to the emergency room. She did not go the same day, she came two days later and complained about chest pain. Since admission the patient ____. I was consulted for further evaluation and management. The chart was reviewed. The patient was reevaluated, this patient is known by my service. ALLERGIES LISINPRIL, PERCOCET. SOCIAL HISTORY Negative for smoking and drinking. FAMILY HISTORY Noncontributory to her current medical condition. MEDICATIONS She is on: 1. Ambien. 2. Flecainide. 3. Metoprolol. 4. Valsartan. 5. Eliquis. 6. Amlodipine. REVIEW OF SYSTEMS Currently she refers no chest pain, no chest discomfort. No vomiting. No fever. PHYSICAL EXAMINATION GENERAL: Alert, fully oriented. VITAL SIGNS: Blood pressure on evaluation 147/78, pulse 53, respiratory rate 18. LUNGS: Ventilated. CARDIOVASCULAR: S1-S2 regular. No gallop. ABDOMEN: Soft. No mass. No bruit. EXTREMITIES: No edema. ELECTROCARDIOGRAM Shows sinus rhythm. No acute ST and T-wave changes. LABORATORY DATA Hemoglobin 10.8, white blood cell 9.0, potassium 3.2, creatinine 0.88, troponin less than 0.02. ASSESSMENT AND RECOMMENDATIONS Mrs. Marte is currently stable. She has a previous ablation. No significant activity seen in the left atrium. She is on flecainide a metoprolol. No significant tachyarrhythmia seen. At this point my recommendation is to discharge home. I will see as an outpatient and readmit her if necessary for electrophysiology study and ablation. The case was discussed extensively with her. I will monitor her for the next 24 hours. If stable, can be discharged home. I will see her in the morning. MD TORIE Grady/TLL /2:14 PM /2:49 PM
--- NOTE | 2016-12-29 15:54 | RADRPT ---
EXAM DATE/TIME: 12/29/2016 14:04 [facility] COMPARISON: No previous studies available for comparison. INDICATIONS : Chest pain for 4 days. Atrial fibrillation. Congestive heart failure. DOSE: 26.3 mCi Tc99m Myoview at stress. 8.1 mCi Tc99m Myoview at rest. 0.4 mg Lexiscan STRESS SYMPTOMS: None noted. EJECTION FRACTION: 45% MEDICAL HISTORY : Hypertension. Cardiovascular disease SURGICAL HISTORY : Tubal ligation. Hysterectomy. ENCOUNTER: Initial ACUITY: 4 - 6 days PAIN SCALE: 3/10 LOCATION: Midsternal chest TECHNIQUE: The patient underwent pharmacologic stress with infusion of prescribed dose. Continuous ECG tracing was monitored during stress. Gated SPECT imaging was performed after stress and conventional SPECT i maging was performed at rest. The examination was performed on a SPECT/CT scanner, both attenuation and non-corrected datasets were reviewed. FINDINGS: DISTRIBUTION: The maximum perfused segment at stress is in the septal wall. PERFUSION STUDY: The pattern of perfusion at stress is within normal limits. GATED STUDY: There is mild hypokinesis.. CONCLUSION: Unremarkable myocardial perfusion study. RISK CATEGORY: low Jeferson Salgado MD on December 29, 2016 at 15:51 Board Certified Radiologist. This report was verified electronically.
[2016-12-29] MEDS: ACETAMIN 325 MG/BUTALBITAL 50 MG/CAFFEINE 40 MG TAB PO PRN (20:09)
[2016-12-29] MEDS: ZOLPIDEM TARTRATE 10 MG TAB PO PRN (22:40)
[2016-12-30] VITALS: PULSE 61
[2016-12-30 04:00] VITALS: PULSE 53
[2016-12-30 05:58] LABS: HEMATOCRIT 36.5 % (35.0-46.0); MEAN CELL VOLUME 71.8 FL (80.0-100.0); MEAN CORPUSCULAR HEMOGLOBIN 22.4 PG (27.0-34.0); MEAN CORPUSCULAR HGB CONC 31.1 % (32.0-36.0); PLATELET COUNT 330 TH/MM3 (150-450); RED BLOOD COUNT 5.09 MIL/MM3 (4.00-5.30); RED CELL DISTRIBUTION WIDTH 14.8 % (11.6-17.2); REVIEW FLAG FINAL
[2016-12-30 06:15] LABS: BICARBONATE 28.9 MEQ/L (21.0-32.0); POTASSIUM 3.8 MEQ/L (3.5-5.1)
[2016-12-30 08:05] VITALS: BP 143/76; PULSE 56; RESP 16; TEMP 98.4; O2SAT 98
[2016-12-30 08:16] VITALS: PULSE 52
[2016-12-30] MEDS: APIXABAN 5 MG TABLET PO SCH (08:50)
[2016-12-30] MEDS: SODIUM CHLORIDE 0.9% FLUSH 10 ML FLUSH IV FLUSH SCH (08:50)
[2016-12-30] MEDS: HYDROCHLOROTHIAZIDE 25 MG TAB PO SCH (08:51)
[2016-12-30] MEDS: FLECAINIDE ACETATE 100 MG TAB PO SCH (08:53)
[2016-12-30] MEDS: VALSARTAN 160 MG TAB PO SCH (08:53)
[2016-12-30] MEDS: amLODIPine BESYLATE 5 MG TAB PO SCH (08:53)
[2016-12-30] MEDS: POTASSIUM CHLORIDE 10 MEQ CONTROLLED RELEASE TAB PO SCH (08:54)
[2016-12-30] MEDS: METOPROLOL TARTRATE 50 MG TAB PO SCH ×2 (08:54→13:00)
[2016-12-30] MEDS: DOCUSATE SODIUM 50 MG/SENNA 8.6 MG TAB PO SCH (08:54)
--- NOTE | 2016-12-30 09:07 | HHI.PR ---
Subjective Subjective Remarks Awake resting in bed No further chest pain except for chest wall pain Afebrile Some bradycardia still noted but patient appears to be asymptomatic with any pain or dizziness (Reyna Nevarez) Review of Systems Constitutional Constitutional: Fatigue, Weakness Constitutional Remarks 10 point ROS done positives noted (Reyna Nevarez) Pulmonary Respiratory: Shortness of Breath (mild low volumes) (Reyna Nevarez) Cardiology CV: Chest Pain (chest wall pain), Palpitations (none today) (Reyna Nevarez) Chest/Breast Chest/Breast: Tenderness (Reyna Nevarez) Musculoskeletal MS: Weakness (Reyna Nevarez) Psychiatric Psychiatric: Normal Mood, Anxiety (mild) (Reyna Nevarez) Vitals/Results Vital Signs Vital Signs Date Time Temp Pulse Resp B/P Pulse Ox O2 Delivery O2 Flow Rate FiO2 12/30/16 08:05 98.4 56 16 143/76 98 12/30/16 04:00 53 12/30/16 00:00 61 12/29/16 20:47 98.8 69 20 143/80 99 12/29/16 20:00 73 12/29/16 12:11 98.6 55 16 158/95 100 (Reyna Nevarez) CBC/BMP: 12/30/16 0535 12/30/16 0535 Lab Results Laboratory Tests Test 12/30/16 05:35 White Blood Count 8.0 TH/MM3 Red Blood Count 5.09 MIL/MM3 Hemoglobin 11.4 GM/DL Hematocrit 36.5 % Mean Corpuscular Volume 71.8 FL Mean Corpuscular Hemoglobin 22.4 PG Mean Corpuscular Hemoglobin 31.1 % Concent Red Cell Distribution Width 14.8 % Platelet Count 330 TH/MM3 Mean Platelet Volume 8.6 FL Sodium Level 140 MEQ/L Potassium Level 3.8 MEQ/L Chloride Level 104 MEQ/L Carbon Dioxide Level 28.9 MEQ/L Anion Gap 7 MEQ/L Blood Urea Nitrogen 10 MG/DL Creatinine 0.71 MG/DL Estimat Glomerular Filtration 103 ML/MIN Rate Random Glucose 102 MG/DL Calcium Level 9.4 MG/DL ([place],Reyna M. WHARF TENDER) Physical Exam General General Appearance: Well Developed, Well Nourished, No Acute Distress, Comfortable ([place],Susan M. WHARF TENDER) Eyes Eye Exam: Pupils Equal, Pupils Reactive (Reyna Nevarez M. WHARF TENDER) Ears & Nose Ears & Nose Exam: Nasal Mucosa [place] (Reyna Nevarez M. WHARF TENDER) Throat Throat Exam: Oral Mucosa [place] & Moist (Reyna Nevarez M. WHARF TENDER) Neck Neck Exam: Neck Supple, Trachea Midline (Reyna Nevarez M. WHARF TENDER) Pulmonary Resp Exam: Crackles ([place] andrean M. WHARF TENDER) Cardiology CV Exam: Regular, Good Perfusion (Geri,Susan M. WHARF TENDER) Gastrointestinal/Abdomen GI Exam: Soft, Non-Tender, Non-Distended ([place],Susan M. WHARF TENDER) Musculoskeletal MS Exam: Joints Intact ([place] andre M. WHARF TENDER) Integumentary Skin Exam: Warm, Dry (Reyna Nevarez M. WHARF TENDER) Extremeties Extremities Exam: No Edema, Pedal Pulses Palpable (Reyna Nevarez M. WHARF TENDER) Neurologic Neuro Exam: Alert, Awake, Oriented, Speech Clear, Moving All Extremities, No Focal Deficits (Makeda Nevarezan M. WHARF TENDER) Psychiatric Psych Exam: Appropriate Responses (Reyna Nevarez M. WHARF TENDER) VTE Prophylaxis VTE Prophylaxis Device: SCDs (Reyna Nevarez M. WHARF TENDER) Assessment/Plan Problem List: (1) Chest pain (2) Atrial fibrillation (3) hx ablation (4) Hyperlipidemia (5) DM (diabetes mellitus) (6) HTN (hypertension) (7) Palpitations Assessment/Plan V ital signs reviewed, heart rate 53, afebrile other trends normal Labs reviewed Anemia stable at 11.4 probably secondary to chronic disease, potassium level 3.8 today IV has come out and infiltrated, will hold off any recent ticks pending discharge CP, R/O ACS -cardiology consult, appreciate expert opinion Stress test done negative Denies any further chest pain over the last 24 hours, atypical chest pain with sore to touch mid sternal Cardiology to follow for further recommendations. We'll see today, probable discharge pending HTN , Hyperlipidemia, DM, II diet controlled, stable Medical management, monitor Accu-Cheks and diabetic diet Hypokalemia, resolved Discharge planning probable today after cardiology visit D/W RN D/W Dr. Crouch D/W pt., seen on his behalf (Reyna Nevarez) Assessment/Plan seen, examined by myself, Dr Crouch, today Discussed with patient Stress test was negative Could be discharged when okay with cardiology Discussed with mid level provider The exam, history, and the medical decision-making described in the above note were completed with the assistance of the mid-level provider. I reviewed the findings presented. I attest that I had a [id number] encounter with the patient on the same day, and personally performed and documented my assessment and findings in the medical record. 40 minutes spent (Gay Crouch MD) Problem Qualifiers (1) Chest pain: (2) Atrial fibrillation: Qualified Code: I48.91 - Atrial fibrillation, unspecified type (3) Hyperlipidemia: Qualified Code: E78.5 - Hyperlipidemia, unspecified hyperlipidemia type (4) DM (diabetes mellitus): Qualified Code: E11.9 - Type 2 diabetes mellitus without complication, without long-term current use of insulin (5) HTN (hypertension): Qualified Code: I10 - Hypertension, unspecified type Reyna Nevarez Dec 30, 2016 09:07 Gay Crouch MD Dec 30, 2016 19:13
[2016-12-30 12:09] VITALS: BP 124/83; PULSE 58; RESP 18; TEMP 98; O2SAT 96
--- NOTE | 2017-02-06 15:21 | HHI.DS ---
Discharge Summary Admission Date Dec 27, 2016 at 19:21 Discharge Date: Dec 31, 2015 Admitting Diagnosis ACS Brief History This was a very pleasant 56-year-old female patient who sees telesales manager Dr. Castaneda. She had a atrial fibrillation ablation by Dr. Velázquez several years ago. The patient had been having problems with chest pain and palpitations for the last 4 days prior to her presentation to the emergency department at [facility] on 12/27/16. She initially neglected it thinking that it will pass away. The loop recorder gave an alarm at her telesales manager office and she was contacted by the telesales manager on 12/26/16 to come to the hospital. She did not She was contacted again on 12/27/16, this time she came to the emergency department. She was seen by the undersigned and examined on 12/27/16 8 PM in room F 58. She had central chest pressure relieved after 2 sublingual nitroglycerin. She had some lightheadedness worse on standing with some nausea but no vomiting. No fever chills or diaphoresis. The chest pressure was central and did not radiate. It was almost constant. Imaging Last Impressions Myocardial Perfusion Scan Nuc Med 12/29/16 0000 Signed Impressions: Service Date/Time: December 14:04 - CONCLUSION: Unremarkable myocardial perfusion study. RISK CATEGORY: low Jeferson Salgado MD Chest X-Ray 12/27/16 1653 Signed Impressions: Service Date/Time: Tuesday, December 27, 2016 17:15 - CONCLUSION: 1. No active disease. No significant change from March 2016. Lawson Quinones MD Head CT 12/27/16 0000 Signed Impressions: Service Date/Time: Tuesday, December 27, 2016 19:21 - CONCLUSION: 1. No acute intracranial abnormalities. Lawson Quinones MD PE at Discharge General Appearance: Well Developed, Well Nourished, No Acute Distress, Comfortable Eyes Eye Exam: Pupils Equal, Pupils Reactive Ears & Nose Ears & Nose Exam: Nasal Mucosa [place] Throat Throat Exam: Oral Mucosa [place] & Moist Neck Neck Exam: Neck Supple, Trachea Midline Pulmonary Resp Exam: Crackles Cardiology CV Exam: Regular, Good Perfusion Gastrointestinal/Abdomen GI Exam: Soft, Non-Tender, Non-Distended Musculoskeletal MS Exam: Joints Intact Integumentary Skin Exam: Warm, Dry Extremeties Extremities Exam: No Edema, Pedal Pulses Palpable Neurologic Neuro Exam: Alert, Awake, Oriented, Speech Clear, Moving All Extremities, No Focal Deficits Psychiatric Psych Exam: Appropriate Response VTE Prophylaxis VTE Prophylaxis Device: SCDs Hospital Course These are the diagnoses that were used to treat this patient during this brief hospital stay (1) Chest pain (2) Atrial fibrillation (3) hx ablation (4) Hyperlipidemia (5) DM (diabetes mellitus) (6) HTN (hypertension) (7) Palpitations Assessment/Plan V ital signs check every 4 and when necessary and treated for any abnormals requiring a change in the plan of care. Patient did have some bradycardia which was monitored throughout this hospital stay. Labs reviewed Anemia stable at 11.4 probably secondary to chronic disease, potassium level was also monitored and treated with supplemental potassium Patient had ECG monitoring as well as IV access CP, R/O ACS -cardiology consult, appreciate expert opinion Stress test done which was negative Denies any further chest pain over the last 24 hours, atypical chest pain with sore to touch mid sternal, which could possibly be muscle skeletal Cardiology to follow for further recommendations. HTN , Hyperlipidemia, DM, II diet controlled, stable Medical management, monitor Accu-Cheks and diabetic diet Hypokalemia, resolved after receiving by mouth calcium supplements On the last day of discharge patient was seen, examined by myself, Dr Crouch, today Discussed with patient Stress test was negative Could be discharged when okay with cardiology. We'll follow up with her PCP in the next week or 2 Pt Condition on Discharge: Stable Discharge Disposition: Discharge Home Discharge Instructions DIET: Follow Instructions for: Heart Healthy Diet Activities you can perform: Weight Bearing as Charisma Follow up Referrals: Cardiology - 1 Week with Amelia Velázquez MD Continued Medications: Amlodipine (Amlodipine) 5 Mg Tab 5 MG PO DAILY for Blood Pressure Management, #30 TAB 0 Refills Apixaban (Eliquis) 5 Mg Tab 5 MG PO BID for Blood Clot Prevention, #60 TAB 0 Refills Flecainide (Flecainide) 100 Mg Tab 100 MG PO Q12HR for Regulate Heart Beat, #60 TAB 0 Refills Metoprolol Tartrate (Metoprolol Tartrate) 50 Mg Tab 50 MG PO TID, #60 TAB 0 Refills Valsartan-Hydrochlorothiazide (Valsartan-Hydrochlorothiazide) 320-25 Mg Tab 1 TAB PO DAILY for Blood Pressure Management, #30 TAB 0 Refills Zolpidem (Zolpidem) 10 Mg Tab 10 MG PO HS PRN for INSOMNIA, TAB 0 Refills Reyna Nevarez Feb 06, 2017 15:21
== END 2016-12-30 16:33 | disposition home or self-care (01) ==
LOC: NEPC 16:11 → INTOOBSV 19:21 → NEDA 19:21 → NEPFCDU 20:44
PROVIDERS: ADMIT Specialist; ATTEND Specialist
DX: I48.91 Unspecified atrial fibrillation (principal); E78.5 Hyperlipidemia, unspecified; E11.9 Type 2 diabetes mellitus without complications; R00.0 Tachycardia, unspecified; J45.909 Unspecified asthma, uncomplicated; I11.0 Hypertensive heart disease with heart failure; I50.9 Heart failure, unspecified; D64.9 Anemia, unspecified; E87.6 Hypokalemia; E03.9 Hypothyroidism, unspecified; R00.2 Palpitations; I24.9 Acute ischemic heart disease, unspecified; I25.10 Atherosclerotic heart disease of native coronary artery without angina pectoris; M19.90 Unspecified osteoarthritis, unspecified site; Z79.899 Other long term (current) drug therapy; Z79.01 Long term (current) use of anticoagulants
CPT/HCPCS: 70450; 71010; 78452; 80048; 80053; 82550; 82552; 83735; 83880; 84484; 85025; 85027; 93005; 93017; 99285; A9502; G0378; J2785

== ENCOUNTER 2017-01-13 06:11 | Day surgery (SDC) | payer OTHER ==
[2017-01-13] VITALS (10 sets, daily range): BP systolic 116–179; BP diastolic 71–96; PULSE 55–67; RESP 16–20; TEMP 97.8–98.4; O2SAT 93–98
[~2017-01-13] VITALS: Ht 165.1 cm; Wt 86.0 kg
[~2017-01-13 06:11] MED LIST changes: +BUTA1CAP10 PO; -HYDR-3516 PO; -TOPA25TA8 PO
[2017-01-13] MEDS ORDERED: SODIUM CHLORID 0.9% 500 ML IV PRN (07:00)
[2017-01-13] MEDS ORDERED: LORazepam 1 MG TAB SL SCH (07:00)
[2017-01-13] MEDS ORDERED: LEVOFLOXACIN 500 MG PREMIX INJ 100 ML IV ONE (07:00)
[2017-01-13] MEDS ORDERED: SODIUM CHLORID 0.9% 500 ML INJ 500 ML IV SCH (07:00)
[2017-01-13] MEDS ORDERED: LACTATED RINGER'S 1000 ML IV PRN (07:00)
[2017-01-13] MEDS ORDERED: POVIDONE IODINE 5% (ANTISEPSIS KIT) 4 APPLICATIONS EACH NARE PRN (07:00)
[2017-01-13] MEDS ORDERED: CHLORHEXIDINE GLUCONATE 2 % 1 PACK (2 CLOTHS) TOPICAL PRN (07:00)
[2017-01-13] MEDS ORDERED: INSULIN HUMAN REGULAR 1,000 UNITS/10 ML VIAL SQ PRN (07:00)
[2017-01-13] MEDS ORDERED: HEPARIN-D5W 25,000 U/250 ML 250 ML ONE (07:14)
[2017-01-13] MEDS ORDERED: FUROSEMIDE 40 MG/4 ML VIAL ONE (07:14)
[2017-01-13] MEDS ORDERED: PROTAMINE SULFATE 50 MG/5 ML VIAL ONE (07:14)
[2017-01-13] MEDS ORDERED: HEPARIN SODIUM - IV 10,000 UNITS/10 ML VIAL ONE ×2 (07:15)
[2017-01-13 07:17] LABS: AUTOMATED NEUTROPHIL # 5.8 TH/MM3 (1.8-7.7); BASOPHIL % 0.2 % (0.0-2.0); EOSINOPHIL # 0.1 TH/MM3 (0-0.4); EOSINOPHIL % 1.1 % (0.0-4.0); HEMATOCRIT 36.3 % (35.0-46.0); HEMO FLAGS DIFF FINAL; LYMPH % 26.5 % (9.0-44.0); LYMPHOCYTE # 2.3 TH/MM3 (1.0-4.8); MEAN CELL VOLUME 72.4 FL (80.0-100.0); MEAN CORPUSCULAR HGB CONC 30.4 % (32.0-36.0); MONO % 4.7 % (0.0-8.0); NEUT % 67.5 % (16.0-70.0); PLATELET COUNT 319 TH/MM3 (150-450); RED BLOOD COUNT 5.02 MIL/MM3 (4.00-5.30); RED CELL DISTRIBUTION WIDTH 14.7 % (11.6-17.2); WHITE BLOOD COUNT 8.7 TH/MM3 (4.0-11.0)
[2017-01-13 07:25] LABS: APTT (PATIENT) 27.5 SEC (24.3-30.1); PROTHROMBIN TIME - PATIENT 10.5 SEC (9.8-11.6)
[2017-01-13 07:42] LABS: BICARBONATE 26.5 MEQ/L (21.0-32.0); POTASSIUM 3.5 MEQ/L (3.5-5.1)
[2017-01-13] MEDS ORDERED: BIOTCAP PO (07:48)
[2017-01-13] MEDS ORDERED: ISOPROTERENOL HCL 1 MG/5 ML AMP ONE (09:18)
[2017-01-13] MEDS ORDERED: LORazepam 2 MG/ML VIAL IV PRN (10:30)
[2017-01-13] MEDS ORDERED: SODIUM CHLOR 0.9% 250 ML INJ 250 ML IV PRN (10:30)
[2017-01-13] MEDS ORDERED: LIDOCAINE HCL 1% 50 ML VIAL INFIL PRN (10:30)
[2017-01-13] MEDS ORDERED: oxyCODONE/ACETAMINOPHEN 5 MG/325 MG TAB PO PRN ×2 (10:30)
[2017-01-13] MEDS ORDERED: BACITRACIN OINT 0.9 GM PKT TOP ONE (10:30)
[2017-01-13] MEDS ORDERED: ATROPINE SULFATE 1 MG/ML VIAL IV PRN (10:30)
[2017-01-13] MEDS ORDERED: METOCLOPRAMIDE HCL 10 MG/2 ML VIAL IV PRN (10:30)
[2017-01-13] MEDS ORDERED: ZOLPIDEM TARTRATE 10 MG TAB PO PRN (10:30)
[2017-01-13] MEDS ORDERED: MIDAZOLAM HCL 2 MG/2 ML VIAL ONE (10:44)
[2017-01-13] MEDS ORDERED: fentaNYL CITRATE 250 MCG/5 ML AMP ONE (10:44)
--- NOTE | 2017-01-13 10:59 | CATHPROC ---
[employer] HIS Report Study Information Study Number Admission Scheduled Start Study Start [id number] Jan 13 2017 6:11AM 01/13/2017 Jan 13 2017 6:59AM [place] Service Electrophysiology Study Admit Source Facility Department Other [facility] - Workforce Analyst Physician and Clinical Staff Initial Amelia Gomez Executive Chairman Of The Board Mari Duffy,RT(R) TECH2 Other Anesthesia, HEAD OF DIGITAL Recorder Nova Herrera,RN Recorder Maria A Corey,BSRN Scrub Emily Tracy,WOOD CAULKER TECH2 Procedures Performed Procedure Location (Site) Vessel Name Ablation Procedure ICE CATHETER INSERT RA Atruim RF Ablation LT. ATRIUM LT. ATRIUM Equipment Time Radio Station Manager Description Size Mfg Part Number Used/Scraped NEEDLE, TRANSSEPTAL NRG 98 07:08 [facility] [id number] Used C1 [employer]/ EP 07:08 KIT, TRANSDUCER / AFIB [id number] Used PACER [id number] CATHETER, TACTICATH ABLAT BUNDLE 07:08 [facility] Used 65 BUNDLE *[id number] BUNDLE [id number] CATHETER, FR7 OPTIMA SPIRAL 07:08 [facility] FR7 *[id number] Used BUNDLE BUNDLE [id number] 07:08 [facility] CATHETER, JSN, QUAD BUNDLE FR 5 *[id number]- Used BUNDLE [id number] 07:08 [facility]UND[facility] CATHETER, JSN, QUAD BUNDLE FR 5 *[id number]- Used BUNDLE [id number] SET, COOL POINT TUBING 07:08 BUND[facility]-[employer] [facility] *[id number]- Used BUNDLE BUNDLE SHEATH, FR8.5 STEERABLE SM 07:08 BUND[facility] 71CM [id number] Used 71CM BUNDLE COVER, TRANSDUCER CABLE 07:08 Koll[employer] [id number] Used ACUNAV 07:08 CORDIS/PACER SHEATH, FR10 EVERT 11CM FR 10 [id number] Used 07:08 CORDIS/PACER SHEATH, FR9 EVERT 11CM FR 9 [id number] Used [id number] 07:08 [employer] INDUSTRIES PACK, CCL CUSTOM * Used *[id number] 07:08 MEDLINE PACER MASON, LIMB * 3440 *[id number] Used [id number] 07:08 [employer] MEDICAL SHEATH, FR4.5 PRELUDE 11CM FR 4.5 Used [id number] 07:08 NAMIC TUBING, HIGH PRESSURE 48" 48" Used *[id number] 07:08 NAMIC TUBING, HIGH PRESSURE 48" 48" Used *[id number] 07:08 MICHAUD MEDICAL BLANKET,WARM AIR CCL * Used *[id number] 07:08 [facility] MEDICAL ELECTRODE KIT, SAÚL X SURFACE * [id number] Used 07:08 [facility] MEDICAL SHEATH, EPS, FR6 FAST CATH FR 6 [id number] Used 07:08 [facility] MEDICAL SHEATH, EPS, FR7 FAST CATH FR [address] [id number] Used 07:08 [facility] MEDICAL SHEATH, EPS, FR8 FAST CATH FR 8 [id number] Used CATHETER, ACUNAV FR10 ICE [id number] 08:53 SHAYY FR 10 Used (SHAYY) *[id number] [facility] PAD, ELECTROSURGICAL 07:08 * [id number] *[id number] Used SURGICAL GROUNDING (BLUE) History: Current Medications Medication Dosage/Unit Route Frequency Last Date/Time Taken ELIQUIS Beta Nicole History: Allergies Allergy Reaction lisinopril Percocet oxycodone acetaminophen History: Risk Factors Hypertension Dyslipidemia Previous Heart Failure Yes Yes Yes Diabetes History: Symptoms/Diagnosis Selection Items MALDONADO Palpitations History: Other Disease Selection Items HTN Labs Hgb (g/dl) Hct (%) RBC (MIL/MM3) WBC (l/cumm) Platelets (thousands) 11.60-17.00 35.00-51.00 4.00-5.90 4.00-11.00 150.00-450.00 11.0 36.3 5 8.7 319 Glucose (mg/dl) BUN (mg/dl) Creatinine (mg/dl) BUN:Creatinine (1:x) 74.00-106.00 7.00-18.00 0.50-1.30 10.00-20.00 123 15 0.7 21.4 Na (meq/l) K (meq/l) Cl (meq/l) CO2 (mmol/L) Ca (mg/dl) 136.00-145.00 3.50-5.10 98.00-107.00 21.00-32.00 8.50-10.10 140 3.5 104 26.5 9.2 Medication Medication Total Dose (Bolus/Oral) Medication Total Dosage/Unit 1% XYLOCAINE 40 mL HEPARIN 55634 units LASIX 20 mg PROTAMINE 40 mg Medications (Bolus/Oral) Medication Time Given Dosage/Unit Administered By Reason 1% XYLOCAINE 01/13/2017 8:45:14 AM 20 mL Amelia Velázquez For pain 20 mL 1% XYLOCAINE given in lab by Amelia Velázquez in Left Groin via Subcutaneous. Ordered by Lawson Velázquez Reason: For pain. 1% XYLOCAINE 01/13/2017 8:48:12 AM 20 mL Amelia Velázquez For pain 20 mL 1% XYLOCAINE given in lab by Amelia Velázquez in Right Groin via Subcutaneous. Ordered by John Velázquez. Reason: For pain. HEPARIN 01/13/2017 8:54:00 AM 02857 units Anesthesia, HEAD OF DIGITAL As per physicians v erbal order 80267 units HEPARIN given in lab by Anesthesia, HEAD OF DIGITAL in Right Hand via Peripheral IV. Ordered by Amelia Adamson. Reason: As per physicians verbal order. HEPARIN 01/13/2017 9:51:35 AM 2000 units Anesthesia, HEAD OF DIGITAL As per physicians v erbal order 2000 units HEPARIN given in lab by Anesthesia, HEAD OF DIGITAL in Right Hand via Peripheral IV. Ordered by Amelia Velázquez. Reason: As per physicians verbal order. PROTAMINE 01/13/2017 10:16:34 AM 40 mg Anesthesia, HEAD OF DIGITAL As per physicians ve rbal order 40 mg PROTAMINE given in lab by Anesthesia, HEAD OF DIGITAL in Right Hand via Peripheral IV. Ordered by John Velázquez. Reason: As per physicians verbal order. LASIX 01/13/2017 10:17:19 AM 20 mg Anesthesia, HEAD OF DIGITAL As per physicians verb al order 20 mg LASIX given in lab by Anesthesia, HEAD OF DIGITAL in Right Hand via Peripheral IV. Ordered by Mohan Velázquez Reason: As per physicians verbal order. Medication (Drip) Medication Time Given Dosage/Unit Concentration/Unit Diluent (ml) Solution HEPARIN DRIP 01/13/2017 9:13:16 AM 1000 units/hr 48644 units 250 D5W 1000 units/hr HEPARIN DRIP given in lab by Anesthesia, HEAD OF DIGITAL in Right Hand via Peripheral IV. Pump/Dri p Flow = 10 ml/hr [place] [address] units in 250 ml. Ordered by Amelia Velázquez. Reason: As per physicians verbal or sue. ISUPREL 01/13/2017 9:57:41 AM 20 mcg/min 1 mg 250 NaCl .9 20 mcg/min ISUPREL given in lab by Anesthesia, HEAD OF DIGITAL in Right Hand via Peripheral IV. Pump/Drip Flow = 300 ml/hr using NaCl .9 with a concentration of 1 mg in 250 ml. Ordered by Amelia Velázquez. Reason: As per physicians verbal order. IV Solutions 01/13/2017 7:40:00 AM 0 mL (IV) NaCl .9 IV Solutions given in lab by Nova Herrera RN in Left Hand via Peripheral IV. Pump/Drip Flow = 50 ml/hr using NaCl .9. Ordered by Amelia Velázquez. IV Solutions 01/13/2017 7:40:05 AM 0 mL (IV) NaCl .9 IV Solutions given in lab by Nova Herrera RN in Right Hand via Peripheral IV. Pump/Drip Flow = 5 0 ml/hr using NaCl .9. Ordered by Amelia Velázquez. LEVAQUIN 01/13/2017 8:02:08 AM 100 mL/hr 500 100 NaCl .9 100 mL/hr LEVAQUIN given in lab by Anesthesia, HEAD OF DIGITAL in Right Hand via Peripheral IV. Pump/Drip Flow = 0 ml/hr using NaCl .9 with a concentration of 500 in 100 ml. Ordered by Amelia Velázquez. Reason: As per physicians verbal order. Initial Case Assessment Cardiovascular HR NIBP Chest Pain 58 188/67 0 Edema Present Skin color Skin None Normal Warm Dry Neurological State Oriented to time-place- Alert Moves all extremities person Respiration - General Respiration Rate SpO2 (%) (B/min) 18 100 Final Case Assessment Cardiovascular HR NIBP 84 117/78 Edema Present Skin color Skin None Normal Warm Dry Neurological State Oriented to time-place- Alert Moves all extremities person Respiration - General Respiration Rate SpO2 (%) (B/min) 18 100 Chronological Log Time Study Chronological Log 7:37:58 Patient arrived via Bed. 7:38:01 Patient Name, D.O.B, / Armband Verified By R.N. 7:38:03 Consent signed by the physician and the patient and verified by the Workforce Analyst staff. 7:38:05 Pre-op and post- op instructions given; patient acknowledges understanding of instructions. 7:39:14 Verbal Stimulation=2 Physical Stimulation=2 Airway=2 Respiration=2 TOTAL=8. (0=absent, 1=li mited, 2=present) 7:39:27 Anesthesia at bedside. Assumes care of patient. Nick HEAD OF DIGITAL 7:39:30 Patient has been NPO for More than 6Hrs. 7:39:30 Skin Breakdown- 7:39:32 Patient Warmer Placed on the Table. 7:39:33 Disposable Defibrillator Pads Placed On Patient. 7:39:34 Juan Prominences Protected 7:39:36 A # 20 IV was noted in the Hand (left). Grade = ~GRADE~ 7:39:37 A # 20 IV was noted in the Hand (right). Grade = ~GRADE~ 7:39:38 History and physical on the chart or being dictated. IV Solutions given in lab by Nova Herrera RN in Left Hand via Peripheral IV. Pump/Drip Flow = 50 ml/hr using NaCl 7:40:00 .9. Ordered by Amelia Velázquez. IV Solutions given in lab by Nova Herrera RN in Right Hand via Peripheral IV. Pump/Drip Seferino w = 50 ml/hr using 7:40:05 NaCl .9. Ordered by Amelia Velázquez. Assessment: Initial Case, HR=58 BPM, TDUW=510/67 mmhg, Chest Pain=0, Edema=None, Color=Normal, S kin = Warm, Dry 7:47:13 Neurological: State=Alert, Ox3, GRAHAM Respiration: Resp=18 B/min, ZkH2=190 % 7:47:40 Table restraints applied according to hospital policy 7:47:43 Right groin prepped with 2% chlorhexidine, and with a 3 min. waiting time. 7:47:47 Left groin prepped with 2% chlorhexidine, and with a 3 min. waiting time. 100 mL/hr LEVAQUIN given in lab by JOSSY Krishnamurthy in Right Hand via Peripheral IV. Pump/Drip F low = 0 ml/hr 8:02:08 using NaCl .9 with a concentration of 500 in 100 ml. Ordered by Amelia Velázquez. Reason: As pe r physicians verbal order. 8:02:33 Indwelling uretheral catheter inserted with clear yellow urine noted. 8:40:55 Presedation re-assessment performed by Workforce Analyst RN. Time Out. Correct patient, procedure, procedure equipment, site and side verified with physician present. Time 8:40:59 concurred by MD, individual staff and HEAD OF DIGITAL. Time Out #2 - Consents verified, patient in correct position, all results are labled and display ed, safety precautions 8:41:05 taken, antibiotics administered. Time out concurred by MD, individual staff and HEAD OF DIGITAL in tamanna thomas 8:41:16 Case Start 8:41:35 EDWARD begun at bedside. 8:43:38 EDWARD completed. 20 mL 1% XYLOCAINE given in lab by Amelia Velázquez in Left Groin via Subcutaneous. Ordered by Amelia Adamson. 8:45:14 Reason: For pain. 8:45:41 Vascular access was obtained in the Fem Vein (left). 8:45:46 Vascular access was obtained in the Fem Vein (left). 8:45:47 Vascular access was obtained in the Fem Vein (left). 8:45:52 Vascular access was obtained in the Fem Art (left). 8:46:16 A SHEATH, FR4.5 PRELUDE 11CM FR 4.5 was advanced into the Fem Art (left) using the Percutane ous technique. 8:46:47 A SHEATH, EPS, FR6 FAST CATH FR 6 was advanced into the Fem Vein (left) using the Percutaneo us technique. 8:47:05 A SHEATH, EPS, FR7 FAST CATH FR 7 was advanced into the Fem Vein (left) using the Percutaneo us technique. 8:47:16 A SHEATH, FR10 EVERT 11CM FR 10 was advanced into the Fem Vein (left) using the Percutaneou s technique. 20 mL 1% XYLOCAINE given in lab by Amelia Velázquez in Right Groin via Subcutaneous. Ordered by Amelia Humphries. 8:48:12 Reason: For pain. 8:48:35 Vascular access was obtained in the Fem Vein (right). 8:48:39 A SHEATH, EPS, FR8 FAST CATH FR 8 was advanced into the Fem Vein (right) using the Percutane ous technique. A CATHETER, JSN, QUAD BUNDLE FR 5 was advanced vis Fem Vein (left) and placed in the HIS. Placem ent was 8:50:47 visually confirmed under fluoroscopy. A CATHETER, JSN, QUAD BUNDLE FR 5 was advanced vis Fem Vein (left) and placed in the CS. Placeme nt was visually 8:51:30 confirmed under fluoroscopy. 8:52:33 CATHETER, ACUNAV FR10 ICE (Vapore) FR 10 Was Postioned. A SHEATH, FR8.5 STEERABLE SM 71CM BUNDLE 71CM was exchanged in the Fem Vein (right). This was ne cessary in 8:53:00 order for catheter support. 8:53:20 [place]. [address] units HEPARIN given in lab by Anesthesia, HEAD OF DIGITAL in Right Hand via Peripheral IV. Ordered by Amelia Velázquez. 8:54:00 Reason: As per physicians verbal order. 8:56:27 Transseptal. A CATHETER, FR7 OPTIMA SPIRAL BUNDLE FR7 was advanced vis Fem Vein (right) and placed in the LA. Placement 8:59:11 was visually confirmed under fluoroscopy. 8:59:39 Mapping in progress. 8:59:40 Activated Clotting Time Drawn 9:06:52 Mapping catheter removed. A CATHETER, TACTICATH ABLAT 65 BUNDLE was advanced vis Fem Vein (right) and placed in the LA. P lacement was 9:09:00 visually confirmed under fluoroscopy. 9:12:00 ACT (Normal Range 90-180) = 347 1000 units/hr HEPARIN DRIP given in lab by Anesthesia, HEAD OF DIGITAL in Right Hand via Peripheral IV. Pu mp/Drip Flow = 10 9:13:16 ml/hr [place] [address] units in 250 ml. Ordered by Amelia Velázquez. Vale son: As per physicians verbal order. 9:14:00 RF Ablation of the LT. ATRIUM with a CATHETER, TACTICATH ABLAT 65 BUNDLE. 9:45:36 Activated Clotting Time Drawn 9:51:00 ACT (Normal Range 90-180) = 325 2000 units HEPARIN given in lab by Anesthesia, HEAD OF DIGITAL in Right Hand via Peripheral IV. Ordered by Amelia Velázquez. 9:51:35 Reason: As per physicians verbal order. 9:52:00 Ablation catheter removed. 20 mcg/min ISUPREL given in lab by Anesthesia, HEAD OF DIGITAL in Right Hand via Peripheral IV. Pump/Drip Flow = 300 ml/hr 9:57:41 using NaCl .9 with a concentration of 1 mg in 250 ml. Ordered by Amelia Velázquez. Reason: As p er physicians verbal order. 10:05:14 Isuprel gtt increased to 30 mcgs/min. 10:10:21 Isuprel stopped. 10:10:49 EP study and ablation completed. 10:11:16 Catheters removed. A SHEATH, FR9 EVERT 11CM FR 9 was exchanged in the Fem Vein (right). This was necessary in ord er to achieve 10:11:20 vascular hemostasis. 10:13:49 No case complications noted. 10:14:15 Cine recording checked. 10:14:30 Ablation procedure performed: AFIB. 10:14:41 EP Procedure was performed. 40 mg PROTAMINE given in lab by Anesthesia, HEAD OF DIGITAL in Right Hand via Peripheral IV. Ordered by Amelia Rodarte. 10:16:34 Reason: As per physicians verbal order. 20 mg LASIX given in lab by Anesthesia, HEAD OF DIGITAL in Right Hand via Peripheral IV. Ordered by Amelia Velázquez. Reason: As 10:17:19 per physicians verbal order. 10:20:51 PACU called. Spoke to Mari 10:29:24 Activated Clotting Time Drawn 10:29:28 ACT (Normal Range 90-180) = 144 10:31:00 Venous sheath removed right groin and pressure held by Maggie Tracy. Hemostasis achieved and dressing applied. 10:31:10 Arterial sheath pulled left groin and pressure held by Mari Duffy. Hemostasis achieved and dressing applied. Venous sheaths removed from left groin and pressure held by Molly Cast. Hemostasis achieved and dressing 10:44:00 applied to site. Assessment: Final Case, HR=84 BPM, FZWA=175/78 mmhg, Edema=None, Color=Normal, Skin = Warm, Dry 10:45:00 Neurological: State=Alert, Ox3, GRAHAM Respiration: Resp=18 B/min, OdY8=939 % 10:58:05 Case End 10:59:04 Patient moved to [facility] and transported to PACU in stable condition. End Study - Contrast Media Used In Study Contrast Total Opened (mL) Total Used (mL) Total Wasted (mL) Unspecified 0 0 0 End Study - Maximum Contrast Load Max Contrast Load (mL) 614.9 End Study - Radiation Exposure Fluoro Time (minutes) 2.4 End Study - Patient Disposition Complications Transferred To Interventional Outcome No Telemetry Bed successful
[2017-01-13] MEDS ORDERED: DO NOT ADM ANY ANTICOAGULANT DRUGS PRN (11:07)
[2017-01-13] MEDS ORDERED: HEPARIN-NS/PF INJ 1,000 ML ONE (12:16)
[2017-01-13] MEDS: *morphine SULFATE 8 MG/ML PERIprocedure ONLY ONE (13:28)
[2017-01-13] MEDS: METOPROLOL TARTRATE 50 MG TAB PO SCH ×2 (14:45→17:34)
[2017-01-13] MEDS: ONDANSETRON HCL 4 MG/2 ML VIAL IV PRN (17:34)
[2017-01-13] MEDS: ACETAMINOPHEN/HYDROcodone 325 MG/5 MG TAB PO PRN (17:34)
[2017-01-13] MEDS: FLECAINIDE ACETATE 100 MG TAB PO SCH (20:05)
[2017-01-13] MEDS: APIXABAN 5 MG TABLET PO SCH (20:06)
[2017-01-14] VITALS (13 sets, daily range): BP systolic 113–142; BP diastolic 69–82; PULSE 52–60; RESP 18; TEMP 98–98.5; O2SAT 95–100
[2017-01-14] MEDS: ACETAMINOPHEN/HYDROcodone 325 MG/5 MG TAB PO PRN (03:44)
[2017-01-14] MEDS: ONDANSETRON HCL 4 MG/2 ML VIAL IV PRN (04:07)
[2017-01-14 06:21] LABS: APTT (PATIENT) 25.5 SEC (24.3-30.1); INTERNATIONAL NORMALIZED RATIO 1.1 RATIO; PROTHROMBIN TIME - PATIENT 11.7 SEC (9.8-11.6)
[2017-01-14] MEDS: FLECAINIDE ACETATE 100 MG TAB PO SCH (08:18)
[2017-01-14] MEDS: METOPROLOL TARTRATE 50 MG TAB PO SCH (08:19)
[2017-01-14] MEDS: APIXABAN 5 MG TABLET PO SCH (08:19)
[2017-01-14] MEDS ORDERED: NON-FORMULARY DRUG (Valsartan-Hydrochlorothiazide 1 TAB) PO SCH (09:00)
[2017-01-14] MEDS ORDERED: amLODIPine BESYLATE 5 MG TAB PO SCH (09:00)
[2017-01-14] MEDS ORDERED: VALSARTAN 160 MG TAB PO SCH (09:00)
[2017-01-14] MEDS ORDERED: HYDROCHLOROTHIAZIDE 25 MG TAB PO SCH (09:00)
--- NOTE | 2017-01-14 09:27 | PD.CARD.PN ---
Objective Vital Signs / I&O Vital Signs Date Time Temp Pulse Resp B/P (MAP) Pulse Ox O2 Delivery O2 Flow Rate FiO2 01/14/17 08:00 98.5 55 18 142/82 (102) 100 01/14/17 06:00 53 01/14/17 05:00 54 01/14/17 04:00 52 01/14/17 04:00 98.1 52 18 113/69 (84) 95 01/14/17 03:00 55 01/14/17 02:00 53 01/14/17 01:00 59 01/14/17 00:00 56 01/14/17 00:00 98.0 55 18 115/74 (88) 96 01/13/17 23:00 59 01/13/17 22:00 58 01/13/17 21:00 59 01/13/17 20:00 97.8 60 20 116/71 (86) 97 01/13/17 20:00 61 01/13/17 18:06 16 01/13/17 18:00 62 01/13/17 17:00 58 01/13/17 16:17 67 01/13/17 16:17 98.2 62 17 128/85 (99) 98 01/13/17 14:53 57 01/13/17 14:48 97.9 61 16 130/87 (101) 95 01/13/17 14:15 98.0 60 16 124/78 (93) 100 Room Air 01/13/17 13:45 57 16 125/75 (92) 100 Room Air 01/13/17 13:15 68 16 129/82 (98) 100 Room Air 01/13/17 12:45 72 15 135/87 (103) 100 Room Air 01/13/17 12:15 72 16 125/84 (98) 100 Room Air 01/13/17 12:00 71 17 131/86 (101) 100 Nasal Cannula 2 01/13/17 11:45 74 15 121/81 (94) 100 Nasal Cannula 2 01/13/17 11:30 74 16 128/78 (95) 100 Nasal Cannula 2 01/13/17 11:15 74 15 126/74 (91) 100 Nasal Cannula 2 01/13/17 11:08 97.5 76 15 122/76 (91) 100 Nasal Cannula 2 I/O 8/2501/13/17 01/13/17 01/14/17 01/14/17 01/14/17 07:00 15:00 23:00 07:00 15:00 23:00 Intake Total 100 ml 240 ml Output Total 150 ml 900 ml Balance -50 ml -660 ml Intake Oral 240 ml IV Total 100 ml Output Urine Total 150 ml 900 ml # Bowel Movements 0 Laboratory Laboratory Tests Test 01/14/17 05:22 Prothrombin Time 11.7 SEC Prothromb Time International Ratio 1.1 RATIO Activated Partial Thromboplast Time 25.5 SEC Assessment and Plan Problem List: (1) Atrial fibrillation with RVR ICD Codes: I48.91 - Unspecified atrial fibrillation Status: Acute Plan: s/p ablation no cv complaints Plan: - d/c home today - dr. Velázquez to do discharge summary (2) Atrial fibrillation ICD Codes: I48.91 - Atrial fibrillation Status: Acute (3) Palpitations ICD Codes: R00.2 - Palpitations Status: Acute (4) Hyperlipidemia ICD Codes: E78.5 - Hyperlipidemia, unspecified Status: Acute (5) HTN (hypertension) ICD Codes: I10 - Essential (primary) hypertension Status: Acute (6) DM (diabetes mellitus) ICD Codes: E11.9 - Type 2 diabetes mellitus without complications Status: Acute (7) hx ablation Status: Acute Joni-Claudio Robison MD Jan 14, 2017 09:27
--- NOTE | 2017-01-14 15:37 | EKG ---
Date Performed: 01/14/2017 Time Performed: 06:14:56 PTAGE: 56 years EKG: Sinus bradycardia Prolonged QT interval Anterior T wave changes are nonspecific Borderline ECG NO PREVIOUS TRACING DOCTOR: Cony Trujillo Interpretating Date/Time 01/14/2017 15:35:20
--- NOTE | 2017-01-14 18:49 | EKG ---
Date Performed: 01/13/2017 Time Performed: 11:31:09 PTAGE: 56 years EKG: Sinus rhythm PROLONGED QT INTERVAL ABNORMAL ECG PREVIOUS TRACING : 01/13/2017 07.25 Compared to prior tracing no significant change DOCTOR: Cony Trujillo Interpretating Date/Time 01/14/2017 18:47:21
--- NOTE | 2017-01-14 18:58 | EKG ---
Date Performed: 01/13/2017 Time Performed: 07:25:44 PTAGE: 56 years EKG: Sinus bradycardia. Prolonged QT interval Septal T wave changes are nonspecific Borderline E CG PREVIOUS TRACING : 12/27/2016 18.59 Compared to prior tracing no significant change DOCTOR: Cony Trujillo Interpretating Date/Time 01/14/2017 18:56:16
--- NOTE | 2017-01-29 12:19 | PD.CARD ---
Atrial Fibrillation Ablation PROCEDURE DATE: Jan 13, 2007 PROCEDURES PERFORMED: 1. Electrophysiology study on Isuprel infusion 2. CS cannulation 3. 3-D mapping 4. Transseptal approach 5. Right and left heart catheterization 6. Intracardiac echo 7. Radiofrequency ablation of atrial fibrillation 8. Pulmonary vein isolation 9. Posterior wall ablation 10. Mitral line creation 11. Anterior and posterior ablation INDICATIONS FOR THE PROCEDURE Ms. Marte is a 56-year-old female with atrial fibrillation, very symptomatic, on anticoagulation, referred for electrophysiology study and ablation. The patient is symptomatic and on anticoagulation. The risks, the nature and the benefits of the procedure were clearly stated to her. The risks include pneumothorax, cardiac perforation, stroke, need for open heart surgery and even . The patient understood and agreed to proceed. DESCRIPTION OF THE PROCEDURE IN DETAIL As written informed consent was obtained prior to esophageal echocardiogram, the patient was kept on the table where she was prepped and draped in the usual sterile fashion. Conscious sedation was initiated and maintained throughout the procedure by the anesthesiologist. Once sedation was verified, the right and left inguinal areas were anesthetized with 2% Xylocaine. Using modified Seldinger technique, the left femoral vein was cannulated on three occasions, three guidewires were advanced. Over the wire a 6, 7 and a 10-[place] were advanced. Then the left femoral artery was cannulated on one occasion, one guidewire was advanced. Over the wire a 4-[place] was advanced. Then the right femoral vein was cannulated on one occasion, one guidewire was advanced. Over the wire a 8-[place] was advanced. Then under fluoroscopic guidance through the 6 and 7-[place], two 5-[place] curved quadripolar electrophysiology catheters were advanced and placed around the His as well as coronary sinus. Basic interval was measured. The patient was in sinus rhythm. Through the 10-[place], a Cordis Murray AcuNav intracardiac echo catheter was advanced and placed at the right atrium. Multiple view was obtained. There is no pericardial effusion, pulmonary vein was seen, atrial septal was visualized. Then the 8-[place] in the right femoral vein was exchanged for AgilSympoz transseptal sheath that was placed all the way to the superior vena cava. Through the sheath a Giovanna needle was advanced, then the sheath, the dilator and the needle were progressed until foci engaged. Once engaged, the needle was advanced. RF was delivered for 2 seconds. I was able to cross into the left atrium. Once the needle crossed, the dilator was advanced. Once the dilator crossed, the sheath was advanced. Once the sheath crossed, the dilator and the needle were removed. At this point I did flush the system and fluid movement was seen in the left atrium the indicates the sheath is in good position. The patient already received 10,000 units of heparin. The goal is to keep an ACT around 350 during ablation. Then through the sheath a [place]. Romario 20 pulse circumferential catheter was advanced. Using [employer] endocardial solution mapping system, a two-dimensional configuration of the left atrium was obtained. Points were taken at the left superior and inferior veins, right superior and inferior veins, mitral valve, and appendages. Then through the sheath a [employer]. Romario TactiCath 65cm 3.5mm irrigated tipped mapping and radiofrequency ablation catheter was advanced. Esophageal probe was placed temperature monitoring during ablation. When it increased to 0.5 degrees Celsius above baseline, I moved to a different area of the atrium. First I did isolate the left superior and inferior vein. I did make a big [place] around the veins. Posterior was ablated. A mitral line was created. Right superior and anterior were isolated. I did remap the atrium. There is no significant signal in the atrium. At that point I did advance the circumferential catheter again into the vein. There was no signal into the vein, pacing from the vein showed no conduction to the atrium. Isuprel infusion was initiated at 20 mcg for over 10 minutes. No tachyarrhythmia was induced, post Isuprel no tachyarrhythmia was induced. At that point the procedure was complete. All catheters were removed, atrial septal sheath was exchanged for 9-[place], intracardiac echo showed no pericardial effusion. There is still good flow in the pulmonary vein. The patient is going to be transferred to the recovery room. No incident report. The patient tolerated the procedure. Blood loss was minimal. FINDINGS 1. Electrocardiogram: At baseline the patient was in sinus rhythm, post procedure electrocardiogram was unchanged. 2. Basic interval: Base cycle length was around 1000 ms. AH at 66 and HV at 40 milliseconds. 3. Tachyarrhythmia: Atrial fibrillation was mapped and ablated. The ablation was successful. CONCLUSION Successful electrophysiology study, mapping, radiofrequency ablation of atrial fibrillation, pulmonary vein isolation, posterior ablation, mitral line creation. COMMENTS AND RECOMMENDATIONS The patient is going to be transferred to the telemetry unit. Will be observed and when stable can be discharged home. Amelia Velázquez MD Jan 29, 2017 12:19
== END 2017-01-14 12:31 | disposition home or self-care (01) ==
LOC: HSDC 06:11 → HDIC 06:12 → HCIS 14:35 → HSDC 01-14 12:31
PROVIDERS: ATTEND Internal Medicine Interventional Cardiology
DX: I48.91 Unspecified atrial fibrillation (principal); R00.2 Palpitations; I11.9 Hypertensive heart disease without heart failure; E11.9 Type 2 diabetes mellitus without complications; E05.90 Thyrotoxicosis, unspecified without thyrotoxic crisis or storm; R01.1 Cardiac murmur, unspecified; E66.9 Obesity, unspecified; E78.00 Pure hypercholesterolemia, unspecified
CPT/HCPCS: 00537; 80048; 85002; 85025; 85610; 85730; 86850; 86900; 86901; 86920; 86922; 93005; 93613; 93623; 93656; 93662; C1730; C1731; C1732; C1759; C1766; C2630; J1644; J1940; J1956; J2250; J2270; J2405; J2720; J3010

== ENCOUNTER 2017-08-22 11:16 | Emergency (ER) | payer SELFPAY ==
[~2017-08-22] VITALS: Ht 166.4 cm; Wt 81.8 kg
[~2017-08-22 11:16] MED LIST changes: +BIOTCAP PO; -BUTA1CAP10 PO
[2017-08-22 11:55] VITALS: BP 148/75; PULSE 58; RESP 20; TEMP 98.5; O2SAT 98
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
== END 2017-08-22 13:23 | disposition left against medical advice (07) ==
LOC: NEPK 11:16
DX: M25.521 Pain in right elbow (principal); Z53.21 Procedure and treatment not carried out due to patient leaving prior to being seen by health care provider; I10 Essential (primary) hypertension; J45.909 Unspecified asthma, uncomplicated; I48.91 Unspecified atrial fibrillation; Y33.XXXA Other specified events, undetermined intent, initial encounter; Z88.5 Allergy status to narcotic agent; Z79.01 Long term (current) use of anticoagulants
CPT/HCPCS: 99281

== ENCOUNTER 2017-11-03 16:13 | Observation (INO) | payer OTHER ==
[2017-11-03] VITALS (9 sets, daily range): BP systolic 143–230; BP diastolic 74–116; PULSE 58–78; RESP 16–22; TEMP 98.1–98.9; O2SAT 97–100
[~2017-11-03] VITALS: Ht 166.4 cm; Wt 84.1 kg
[2017-11-03] MEDS ORDERED: AMIO200T PO (16:57)
[2017-11-03] MEDS ORDERED: ISOS30TA3 PO (16:57)
--- NOTE | 2017-11-03 17:13 | PD ---
HPI Chief Complaint: Chest Pain Time Seen by Provider: 17:00 Travel History International Travel<30 days: No Contact w/Intl Traveler<30days: No Traveled to known affect area: No History of Present Illness HPI Patient presents to the emergency department complaining of 2 day history of chest pain that initially was intermittent but has been constant today. She is wearing a loop recorder secondary to history of A. fib with ablation 4, last ablation February. States that she was called by her doctor's office to come in secondary to loop recorder regular. Dr. Castaneda is her kinesiology professor. Chest pain is described as being left-sided, radiating to the left neck and left arm, 9 out of 10, no alleviating or aggravating factors. He denies recent travel but reports shortness of breath with the pain positive subjective fever and chills positive nausea but no vomiting. No lower extremity edema but reports diaphoresis with the pain. PFSH Past Medical History Hx Anticoagulant Therapy: Yes (Eliquis) Arthritis: Yes Asthma: Yes Atrial Fibrillation: Yes Autoimmune Disease: No Blood Disorders: No Anxiety: No Depression: No Heart Rhythm Problems: Yes Cancer: No Cardiac Catheterization: Yes (2016) Cardiovascular Problems: Yes (AFIB ABL, MURMUR, HYPERLIPIDEMIA, LOOP RECORDER) High Cholesterol: Yes Chemotherapy: No Chest Pain: No Congestive Heart Failure: Yes COPD: No Cerebrovascular Accident: No Coronary Artery Disease: Yes Diabetes: No Diminished Hearing: No Endocrine: No Gastrointestinal Disorders: No GERD: No Glaucoma: No Genitourinary: Yes (kidney stones) Headaches: Yes Hepatitis: No Hiatal Hernia: No Heparin Induced Thrombocytopen: No Hypertension: Yes Immune Disorder: No Implanted Vascular Access Dvce: Yes Kidney Stones: Yes Musculoskeletal: Yes Neurologic: Yes Psychiatric: No Reproductive: No Respiratory: No Integumentary: No Immunizations Current: Yes Migraines: No Myocardial Infarction: No Renal Failure: No Seizures: No Sickle Cell Disease: No Sleep Apnea: No Thyroid Disease: Yes (HYPERTHYROID) Ulcer: No Tetanus Vaccination: > 5 Years Influenza Vaccination: Yes ?: Not Menopausal: Yes Past Surgical History Abdominal Surgery: Yes AICD: No Appendectomy: Yes Arteriovenous Shunt: No Body Medical Devices: loop recorder Cardiac Surgery: Yes (ATRIAL ABLATION/ LOOP RECORDER) Cholecystectomy: No Ear Surgery: No Endocrine Surgery: No Eye Surgery: No Genitourinary Surgery: Yes (TUMOR REMOVED LEFT KIDNEY MAY 2010) Gynecologic Surgery: Yes Hysterectomy: Yes Insulin Pump: No Joint Replacement: No Neurologic Surgery: No Oral Surgery: No Pacemaker: No Thoracic Surgery: Yes (LOOP RECORDER) Other Surgery: Yes Social History Alcohol Use: No Tobacco Use: No Substance Use: No Allergies-Medications (Allergen,Severity, Reaction): Coded Allergies: acetaminophen (Verified Allergy, Severe, nauseas and vomiting, 11/03/17) nausea and vomiting lisinopril (Verified Adverse Reaction, Severe, weakness, 11/03/17) oxycodone (Verified Adverse Reaction, Severe, nauseas, 11/03/17) nausea and vomiting Reported Meds & Prescriptions Reported Meds & Active Scripts Active Reported Isosorbide Mononitrate ER (Isosorbide Mononitrate) 30 Mg Florian 30 Mg PO DAILY Amiodarone (Amiodarone HCl) 200 Mg Tab 200 Mg PO DAILY Zolpidem (Zolpidem Tartrate) 10 Mg Tab 10 Mg PO HS PRN Metoprolol Tartrate 50 Mg Tab 50 Mg PO TID Valsartan-Hydrochlorothiazide 320-25 Mg Tab 1 Tab PO DAILY Eliquis (Apixaban) 5 Mg Tab 5 Mg PO BID Amlodipine (Amlodipine Besylate) 5 Mg Tab 5 Mg PO DAILY Review of Systems Except as stated in HPI: all other systems reviewed are Neg Physical Exam Narrative GENERAL: Positive discomfort. SKIN: Focused skin assessment warm/dry. HEAD: Atraumatic. Normocephalic. EYES: Pupils equal and round. No scleral icterus. No injection or drainage. ENT: No nasal bleeding or discharge. Mucous membranes pink and moist. NECK: Trachea midline. No JVD. CARDIOVASCULAR: Regular rate and rhythm. murmur appreciated. RESPIRATORY: No accessory muscle use. Clear to auscultation. Breath sounds equal bilaterally. GASTROINTESTINAL: Abdomen soft, non-tender, nondistended. Hepatic and splenic margins not palpable. MUSCULOSKELETAL: No obvious deformities. No clubbing. No cyanosis. No edema. NEUROLOGICAL: Awake and alert. No obvious cranial nerve deficits. Motor grossly within normal limits. Normal speech. PSYCHIATRIC: Appropriate mood and affect; insight and judgment normal. Data Data Last Documented VS Vital Signs Date Time Temp Pulse Resp B/P (MAP) Pulse Ox O2 Delivery O2 Flow Rate FiO2 11/03/17 18:30 17 11/03/17 17:40 71 143/78 (99) 97 Room Air 11/03/17 17:33 98.1 Orders Orders Complete Blood Count With Diff (11/03/17 16:15) Ckmb (Isoenzyme) Profile (11/03/17 16:15) Troponin I (11/03/17 16:15) Electrocardiogram (11/03/17 ) B-Type Natriuretic Peptide (11/03/17 17:08) Prothrombin Time / Inr (Pt) (11/03/17 17:08) Act Partial Throm Time (Ptt) (11/03/17 17:08) Chest, Single Ap (11/03/17 17:08) Aspirin (Aspirin) (11/03/17 17:15) Sodium Chloride 0.9% Flush (Ns Flush) (11/03/17 17:15) Nitroglycerin Sl (Nitrostat Sl) (11/03/17 17:15) Comprehensive Metabolic Panel (11/03/17 16:41) Magnesium (Mg) (11/03/17 16:41) Morphine Inj (Morphine Inj) (11/03/17 18:20) Morphine Inj (Morphine Inj) (11/03/17 18:30) Consult Cardiology (11/03/17 ) (Hub Use Only)Inp Phy Cons/Ref (11/03/17 ) CKMB (11/03/17 16:41) CKMB% (11/03/17 16:41) Activity Bed Rest With Brp (11/03/17 18:56) Vital Signs (Adult) Q4H (11/03/17 18:56) Cardiac Rhythm .As Directed (11/03/17 18:56) Notify Dr: Other .PRN (11/03/17 18:56) Notify Dr. Parameters (11/03/17 18:56) Resp Oxygen Nasal Cannula (11/03/17 ) Diet Npo (11/04/17 Breakfast) Diet Heart Healthy (11/03/17 Dinner) Ckmb (Isoenzyme) Profile (11/03/17 19:41) Ckmb (Isoenzyme) Profile (11/03/17 22:41) Troponin I (11/03/17 19:41) Troponin I (11/03/17 22:41) Electrocardiogram (11/03/17 19:53) Electrocardiogram (11/03/17 22:53) ^ Obtain (11/03/17 18:56) Sodium Chloride 0.9% Flush (Ns Flush) (11/03/17 19:00) Sodium Chloride 0.9% Flush (Ns Flush) (11/03/17 21:00) Morphine Inj (Morphine Inj) (11/03/17 19:00) Nitroglycerin Sl (Nitrostat Sl) (11/03/17 19:00) Nuclear Medicine Technologist / Telemetry SANTIAGO.Q8H (11/03/17 18:56) Shayne Bilateral/Knee High SANTIAGO.QSHIFT (11/03/17 18:56) Admit Order (Ed Use Only) (11/03/17 18:56) Labs Laboratory Tests Test 11/03/17 16:41 11/03/17 17:20 White Blood Count 8.3 TH/MM3 Red Blood Count 4.92 MIL/MM3 Hemoglobin 10.8 GM/DL Hematocrit 35.0 % Mean Corpuscular Volume 71.1 FL Mean Corpuscular Hemoglobin 21.9 PG Mean Corpuscular Hemoglobin Concent 30.7 % Red Cell Distribution Width 14.8 % Platelet Count 320 TH/MM3 Mean Platelet Volume 9.2 FL Neutrophils (%) (Auto) 57.2 % Lymphocytes (%) (Auto) 32.4 % Monocytes (%) (Auto) 7.4 % Eosinophils (%) (Auto) 2.6 % Basophils (%) (Auto) 0.4 % Neutrophils # (Auto) 4.7 TH/MM3 Lymphocytes # (Auto) 2.7 TH/MM3 Monocytes # (Auto) 0.6 TH/MM3 Eosinophils # (Auto) 0.2 TH/MM3 Basophils # (Auto) 0.0 TH/MM3 CBC Comment DIFF FINAL Differential Comment Blood Urea Nitrogen 9 MG/DL Creatinine 0.73 MG/DL Random Glucose 75 MG/DL Total Protein 7.7 GM/DL Albumin 3.6 GM/DL Calcium Level 9.0 MG/DL Magnesium Level 2.1 MG/DL Alkaline Phosphatase 126 U/L Aspartate Amino Transf (AST/SGOT) 29 U/L Alanine Aminotransferase (ALT/SGPT) 22 U/L Total Bilirubin 0.3 MG/DL Sodium Level 141 MEQ/L Potassium Level 3.6 MEQ/L Chloride Level 106 MEQ/L Carbon Dioxide Level 25.0 MEQ/L Anion Gap 10 MEQ/L Estimat Glomerular Filtration Rate 99 ML/MIN Total Creatine Kinase 264 U/L Creatine Kinase MB 2.2 NG/ML Creatine Kinase MB % 0.8 % Troponin I LESS THAN 0.02 NG/ML B-Type Natriuretic Peptide 51 PG/ML Prothrombin Time 10.6 SEC Prothromb Time International Ratio 1.0 RATIO Activated Partial Thromboplast Time 25.2 SEC MDM Medical Decision Making Medical Screen Exam Complete: Yes Emergency Medical Condition: Yes Interpretation(s) ECG: Junctional rhythm, rate 71, wave inversion V2 and V3 and lead III Labs: CBC and coags within normal limits, CK increased remaining cardiac enzymes within normal limits Last Impressions Chest X-Ray 11/03/17 1708 Signed Impressions: CONCLUSION: Mild commentated cardiomegaly Differential Diagnosis ACS,cardiac arrhythmia, PE, costochondritis, pleural effusion, pulmonary edema/ CHF Narrative Course She presents to the emergency department complaint of chest pain patient placed on die cut operator and IV access obtained. Chest x-ray, EKG, and labs ordered. Patient given 325 mg p.o. aspirin and 3 sublingual nitroglycerin. 1807: Chest pain has subsided after 3 nitroglycerin. BP 143/79 patient is complaining of a headache. Will give 2 mg IV morphine she does not want Tylenol or Motrin and states that she can take morphine without any issues. 1901: Patient admitted to the chest pain center. States headache and chest pain are subsiding and she feels much better. Physician Communication Physician Communication 1710-Dr. Klein, personal trainer for Dr. Haq. Advised patient had a normal stress test 3 months normal 7 years ago. Stated that the recording with A. fib with RVR on the loop recorder. Does not think pain is cardiac. 1830: Dr. Ndiaye in ER evaluating patient. Advised to admit for overnight observation. Diagnosis Primary Impression: Chest pain Qualified Codes: R07.9 - Chest pain, unspecified Admitting Information Admitting Physician Requests: Observation Condition: Stable Sylvia Chew MD Nov 03, 2017 17:13
[2017-11-03] MEDS ORDERED: ASPIRIN 325 MG TAB PO ONE (17:15)
[2017-11-03] MEDS: NITROGLYCERIN 0.4 MG SL 25 TABS/BTL SL SCH ×3 (17:22→17:39)
[2017-11-03] MEDS: SODIUM CHLORIDE 0.9% FLUSH 10 ML FLUSH IVF PRN ×2 (17:22→18:25)
[2017-11-03 17:26] LABS: AUTOMATED NEUTROPHIL # 4.7 TH/MM3 (1.8-7.7); BASOPHIL % 0.4 % (0.0-2.0); EOSINOPHIL # 0.2 TH/MM3 (0-0.4); EOSINOPHIL % 2.6 % (0.0-4.0); HEMOGLOBIN 10.8 GM/DL (11.6-15.3); LYMPH % 32.4 % (9.0-44.0); LYMPHOCYTE # 2.7 TH/MM3 (1.0-4.8); MEAN CELL VOLUME 71.1 FL (80.0-100.0); MEAN CORPUSCULAR HEMOGLOBIN 21.9 PG (27.0-34.0); MEAN CORPUSCULAR HGB CONC 30.7 % (32.0-36.0); MEAN PLATELET VOLUME 9.2 FL (7.0-11.0); MONO % 7.4 % (0.0-8.0); MONOCYTE # 0.6 TH/MM3 (0-0.9); NEUT % 57.2 % (16.0-70.0); PLATELET COUNT 320 TH/MM3 (150-450); RED BLOOD COUNT 4.92 MIL/MM3 (4.00-5.30); RED CELL DISTRIBUTION WIDTH 14.8 % (11.6-17.2); WHITE BLOOD COUNT 8.3 TH/MM3 (4.0-11.0)
--- NOTE | 2017-11-03 17:53 | RADRPT ---
EXAM DATE: 11/03/2017 5:49 PM EDT AGE/SEX: 57 years / Female INDICATIONS: Left lower chest pain for two days. CLINICAL DATA: This is the patient's initial encounter. Patient reports that signs and symptoms have been present for 2 days and indicates a pain score of 4/10. MEDICAL/SURGICAL HISTORY: . Atrial fibrillation. . Cardiac ablation. Loop recorder. [place] [facility] [place]. . FINDINGS: A single AP view of the chest demonstrates the lungs to be symmetrically aerated without evidence of mass, infiltrate or effusion. Mild prominence cardiac silhouette.. Cardiac event recorder is noted. O sseous structures are intact. CONCLUSION: Mild commentated cardiomegaly Electronically signed by: Navdeep Brown MD 11/03/2017 5:51 PM EDT
[2017-11-03 17:55] LABS: PROTHROMBIN TIME - PATIENT 10.6 SEC (9.8-11.6)
[2017-11-03] MEDS ORDERED: MORPHINE SULFATE 2 MG/ML SYRINGE IV PUSH ONE (18:15)
[2017-11-03] MEDS ORDERED: MORPHINE SULFATE 4 MG/ML INJ ONE (18:20)
[2017-11-03] MEDS ORDERED: MORPHINE SULFATE 4 MG/ML INJ IV ONE (18:30)
[2017-11-03 18:45] LABS: ALBUMIN 3.6 GM/DL (3.4-5.0); ALKALINE PHOSPHATASE 126 U/L (45-117); ALT (GPT) 22 U/L (10-53); AST (GOT) 29 U/L (15-37); BLOOD UREA NITROGEN 9 MG/DL (7-18); CHLORIDE 106 MEQ/L (98-107); CREATININE 0.73 MG/DL (0.50-1.00); GLOMERULAR FILTRATION RATE 99 ML/MIN (>89); GLUCOSE,RANDOM 75 MG/DL (74-106); MAGNESIUM 2.1 MG/DL (1.5-2.5); SODIUM (NA) 141 MEQ/L (136-145); TOTAL BILIRUBIN ADULT 0.3 MG/DL (0.2-1.0); TOTAL PROTEIN 7.7 GM/DL (6.4-8.2); TROPONIN I LESS THAN 0.02 NG/ML (0.02-0.05)
[2017-11-03] MEDS ORDERED: MORPHINE SULFATE 4 MG/ML INJ IV PUSH PRN (19:00)
[2017-11-03] MEDS ORDERED: SODIUM CHLORIDE 0.9% FLUSH 10 ML FLUSH IV FLUSH PRN (19:00)
[2017-11-03] MEDS ORDERED: NITROGLYCERIN 0.4 MG SL 25 TABS/BTL SL PRN (19:00)
--- NOTE | 2017-11-03 19:02 | MB ---
cc: Kishan Klein MD DATE: 11/03/2017 REASON FOR CONSULTATION: Atrial fibrillation, chest pain. HISTORY OF PRESENT ILLNESS: The patient is a 57-year-old female, followed in our office by Dr. Amelia Velázquez and Dr. Himanshu Haq, with a history of hypertension, borderline diabetes, coronary artery disease, kidney stones, pheochromocytoma, and paroxysmal atrial fibrillation, who was advised by our office to go to the emergency department as her loop recorder detected atrial fibrillation with a rapid ventricular response. In the emergency department, she also relates a 48-hour history of constant left parasternal and left upper chest discomfort described as "pressure","sharp" with some involvement of her left upper arm. She has felt more short of breath than usual in the last couple of days as well as intermittently nauseated. She denies pleurisy, fevers, hemoptysis ,pedal edema, near syncope, or syncope. Yesterday, she did experience a few minutes of rapid palpitations associated with lightheadedness. The patient states she has similar palpitations about twice a week, often associated with lightheadedness without syncope or near syncope. At times, she has had paroxysmal nocturnal dyspnea. Since coming into the hospital, her chest discomfort has remained unchanged. PAST MEDICAL HISTORY: 1. Hypertension. 2. Borderline diabetes. 3. Coronary artery disease with cardiac catheterization 04/12/[address] Gianfranco Valdez, showing normal left main, normal LAD, 15% obtuse marginal stenosis, 25% and 30% proximal right coronary artery stenoses. 4. History of kidney stones, status post lithotripsy 2010. 5. Pheochromocytoma, status post left adrenalectomy 05/28/2010. 6. Paroxysmal atrial fibrillation, status post ablations 01/01/2015, 12/24/2015, 04/07/2016, 01/29/2017. 7. Hyperlipidemia. PAST SURGICAL HISTORY: 1. Hysterectomy. 2. Appendectomy. 3. Right ankle surgery. 4. Right shoulder surgery. 5. Left robotic-assisted adrenalectomy. CARDIAC MEDICATIONS: 1. Isosorbide mononitrate 30 mg daily. 2. Amiodarone 200 mg daily. 3. Metoprolol tartrate 50 mg t.i.d. 4. Valsartan/hydrochlorothiazide 320/25 one daily. 5. Eliquis 5 mg b.i.d. 6. Amlodipine 5 mg daily. ALLERGIES: 1. LISINOPRIL 2. ACETAMINOPHEN. 3. OXYCODONE. FAMILY HISTORY: Noncontributory. SOCIAL HISTORY: The patient denies any history of alcohol or tobacco abuse. REVIEW OF SYSTEMS: As in the history of present illness, otherwise negative or noncontributory. She also denies headache, abdominal pain, melena, dyspepsia, bright red blood per rectum, and cough. PHYSICAL EXAMINATION: VITAL SIGNS: Her blood pressure 143/78 (230/116 on presentation) with a pulse of 70, respirations 18. GENERAL: She is a well-developed, well-nourished female in no acute distress. NECK: Jugular venous pressure is normal. Carotid pulses are 2+ bilaterally and without bruits. CHEST: Reveals clear lungs liz. CARDIAC: She has a regular rhythm and rate without S3, S4, or murmur. ABDOMEN: She has a soft, nontender abdomen. Bowel sounds are present. There is no definite hepatosplenomegaly. EXTREMITIES: Reveals no clubbing, cyanosis or edema. IMAGING STUDIES: Chest x-ray shows no acute disease. DIAGNOSTIC STUDIES: EKG: unable to locate. It reportedly shows junctional rhythm, nonspecific T-wave abnormality. LABORATORY DATA: Includes normal CBC, pending basic metabolic profile and cardiac enzymes. IMPRESSION: Recurrent atrial fibrillation with a rapid ventricular response detected by loop recorder monitoring, noncardiac chest pain in this 57-year-old female with a history of hypertension, diabetes, mild coronary artery disease by cardiac catheterization in 2009, kidney stones, pheochromocytoma, history of 4 paroxysmal atrial fibrillation ablations. At this time, she is back in what appears to be sinus rhythm on the monitor. I am unable to locate her EKG. It reportedly shows no acute ST segment changes. Her chest pains, which have been constant for the past 48 hours, are exceedingly atypical for myocardial ischemia. She did have a completely normal nuclear stress test 3 months ago. The patient also has chest wall tenderness on exam, reproducing her chest discomforts, suggesting the possibility of costochondritis. Clinical suspicion for pulmonary embolism is low. RECOMMENDATIONS: 1. Overnight observation. 2. If she remains in sinus rhythm, she can be discharged home tomorrow morning with close followup with Dr. Velázquez; he may have to consider AV linnea ablation with pacemaker implant in the future. For the time being, consider increasing her metoprolol dosing. MD LALI Garzon/JIAN , 06:39 PM , 07:00 PM FLO
[2017-11-03] MEDS: SODIUM CHLORIDE 0.9% FLUSH 10 ML FLUSH IV FLUSH SCH (20:13)
[2017-11-03 20:36] LABS: TROPONIN I LESS THAN 0.02 NG/ML (0.02-0.05)
[2017-11-03] MEDS ORDERED: ZOLPIDEM TARTRATE 10 MG TAB PO PRN (22:30)
[2017-11-03] MEDS: APIXABAN 5 MG TABLET PO SCH (22:49)
[2017-11-03] MEDS: METOPROLOL TARTRATE 50 MG TAB PO SCH (22:49)
[2017-11-03 23:51] LABS: TROPONIN I LESS THAN 0.02 NG/ML (0.02-0.05)
[2017-11-04 03:31] VITALS: BP 148/82; PULSE 53; RESP 16; TEMP 98.2; O2SAT 97
[2017-11-04 07:00] VITALS: PULSE 48
[2017-11-04 08:00] VITALS: BP_SYST 136; BP_SYST 181; BP_DIAS 74; BP_DIAS 94; PULSE 53; PULSE 93; RESP 15; RESP 24; TEMP 97.7; TEMP 97.8; O2SAT 100; O2SAT 96
[2017-11-04] MEDS: APIXABAN 5 MG TABLET PO SCH (08:25)
[2017-11-04] MEDS: SODIUM CHLORIDE 0.9% FLUSH 10 ML FLUSH IV FLUSH SCH (08:25)
[2017-11-04] MEDS ORDERED: AMIODARONE 200 MG TAB PO SCH (09:00)
[2017-11-04] MEDS ORDERED: VALSARTAN 160 MG TAB PO SCH (09:00)
[2017-11-04] MEDS ORDERED: ISOSORBIDE MONONITRATE 30 MG CR TAB (IMDUR) PO SCH (09:00)
[2017-11-04] MEDS ORDERED: amLODIPine BESYLATE 5 MG TAB PO SCH (09:00)
[2017-11-04] MEDS ORDERED: HYDROCHLOROTHIAZIDE 25 MG TAB PO SCH (09:00)
[2017-11-04] MEDS: METOPROLOL TARTRATE 50 MG TAB PO SCH ×2 (09:00→12:36)
--- NOTE | 2017-11-04 09:51 | PD.CARD.PN ---
Subjective Subjective Remarks Still with moderate left parasternal CP. No dyspnea. Brief palpitations earlier. Mildly lightheaded this morning. Objective Medications Item Value Date Time Amiodarone HCl 200 mg 11/04/17 09 (Cordarone) DAILY/PO 11/04/17824 Amlodipine 5 mg 11/04/17899 Besylate DAILY/PO 11/04/17 08 (Norvasc) Isosorbide 30 mg 11/04/17 09 Mononitrate DAILY/PO 11/04/17824 (Imdur) Valsartan 320 mg 11/04/17 09 (Diovan) DAILY/PO 11/04/17 0824 Hydrochlorothiazide 25 mg 11/04/17 0900 (Hydrodiuril) DAILY/PO 11/04/17823 Apixaban 5 mg 11/03/17 2300 (Eliquis) DAILY/PO 11/04/17824 Metoprolol 50 mg 11/03/17 2300 Tartrate TID/PO 11/03/17 2249 (Lopressor) Current Medications Medications (Trade) Dose Ordered Sig/Robert Route Start Time Stop Time Status Last Admin (NS Flush) 2 ml UNSCH PRN IVF 11/03/17 17:15 11/03/17 18:25 (NS Flush) 2 ml UNSCH PRN IV FLUSH 11/03/17 19:00 (NS Flush) 2 ml BID IV FLUSH 11/03/17 21:00 11/04/17 08:25 (Morphine Inj) 2 mg Q4H PRN IV PUSH 11/03/17 19:00 11/03/17 20:00 (Nitrostat Sl) 0.4 mg Q5M PRN SL 11/03/17 19:00 (Cordarone) 200 mg DAILY PO 11/04/17 09:00 11/04/17 08:25 (Norvasc) 5 mg DAILY PO 11/04/17 09:00 11/04/17 08:25 (Eliquis) 5 mg DAILY PO 11/03/17 23:00 11/04/17 08:25 (Imdur) 30 mg DAILY PO 11/04/17 09:00 11/04/17 08:25 (Lopressor) 50 mg TID PO 11/03/17 23:00 6/15/18 22:49 (Diovan) 320 mg DAILY PO 11/04/17 09:00 11/04/17 08:24 (Hydrodiuril) 25 mg DAILY PO 11/04/17 09:00 11/04/17 08:24 (Ambien) 10 mg HS PRN PO 11/03/17 22:30 11/03/17 22:49 Vital Signs / I&O Vital Signs Date Time Temp Pulse Resp B/P (MAP) Pulse Ox O2 Delivery O2 Flow Rate FiO2 11/04/17 08:00 97.7 53 24 181/94 (123) 96 11/04/17 07:00 48 11/04/17 03:31 98.2 53 16 148/82 (104) 97 11/03/17 23:00 164/74 (104) 11/03/17 23:00 65 11/03/17 22:53 98.3 61 16 177/82 (113) 99 11/03/17 20:05 18 11/03/17 19:51 98.3 62 18 179/91 (120) 97 11/03/17 19:29 58 20 159/77 (104) 99 Room Air 11/03/17 19:20 97 11/03/17 18:30 17 11/03/17 17:44 18 11/03/17 17:40 71 17 143/78 (99) 97 Room Air 11/03/17 17:33 98.1 68 18 146/80 (102) 98 Room Air 11/03/17 17:03 98.1 69 20 100 Room Air 11/03/17 16:50 70 18 99 Room Air 11/03/17 16:15 98.9 78 22 230/116 (154) 100 Room Air Physical Exam GENERAL: Well developed, well nourished. No acute distress. HEENT: Jugular venous pressure is normal. CHEST: Lungs clear to auscultation bilaterally. Unlabored respiratory effort. CARDIAC: Bradycardic regular rhythm without S3, S4, or murmur. ABDOMEN: Soft, nontender, no hepatosplenomegaly. Bowel sounds present. EXTREMITIES: No clubbing, cyanosis, or edema. Laboratory Laboratory Tests Test 11/03/17 16:41 11/03/17 17:20 11/03/17 19:40 11/03/17 23:00 White Blood Count 8.3 TH/MM3 Red Blood Count 4.92 MIL/MM3 Hemoglobin 10.8 GM/DL Hematocrit 35.0 % Mean Corpuscular Volume 71.1 FL Mean Corpuscular Hemoglobin 21.9 PG Mean Corpuscular Hemoglobin Concent 30.7 % Red Cell Distribution Width 14.8 % Platelet Count 320 TH/MM3 Mean Platelet Volume 9.2 FL Neutrophils (%) (Auto) 57.2 % Lymphocytes (%) (Auto) 32.4 % Monocytes (%) (Auto) 7.4 % Eosinophils (%) (Auto) 2.6 % Basophils (%) (Auto) 0.4 % Neutrophils # (Auto) 4.7 TH/MM3 Lymphocytes # (Auto) 2.7 TH/MM3 Monocytes # (Auto) 0.6 TH/MM3 Eosinophils # (Auto) 0.2 TH/MM3 Basophils # (Auto) 0.0 TH/MM3 CBC Comment DIFF FINAL Differential Comment Blood Urea Nitrogen 9 MG/DL Creatinine 0.73 MG/DL Random Glucose 75 MG/DL Total Protein 7.7 GM/DL Albumin 3.6 GM/DL Calcium Level 9.0 MG/DL Magnesium Level 2.1 MG/DL Alkaline Phosphatase 126 U/L Aspartate Amino Transf (AST/SGOT) 29 U/L Alanine Aminotransferase (ALT/SGPT) 22 U/L Total Bilirubin 0.3 MG/DL Sodium Level 141 MEQ/L Potassium Level 3.6 MEQ/L Chloride Level 106 MEQ/L Carbon Dioxide Level 25.0 MEQ/L Anion Gap 10 MEQ/L Estimat Glomerular Filtration Rate 99 ML/MIN Total Creatine Kinase 264 U/L 216 U/L 193 U/L Creatine Kinase MB 2.2 NG/ML 2.1 NG/ML 1.8 NG/ML Creatine Kinase MB % 0.8 % 1.0 % 0.9 % Troponin I LESS THAN 0.02 NG/ML LESS THAN 0.02 NG/ML LESS THAN 0.02 NG/ML B-Type Natriuretic Peptide 51 PG/ML Prothrombin Time 10.6 SEC Prothromb Time International Ratio 1.0 RATIO Activated Partial Thromboplast Time 25.2 SEC Imaging Last 24 hours Impressions Chest X-Ray 11/03/17 8930 Signed Impressions: CONCLUSION: Mild commentated cardiomegaly Assessment and Plan Problem List: (1) Paroxysmal atrial fibrillation ICD Codes: I48.0 - Paroxysmal atrial fibrillation Status: Chronic Plan: Remains in sinus bradycardia with occasional accelerated junctional rhythm. Unable to increase medical therapy with baseline bradycardia. Patient already s/p 4 atrial fib ablations. REC continue current regimen, f/u with Dr. Velázquez in the near future to discuss AV node ablation plus pacemaker implant OK for discharge from my standpoint (2) Atypical chest pain ICD Codes: R07.89 - Other chest pain Status: Acute Plan: Persistent atypical CP, likely noncardiac. Negative cardiac enzymes despite prolonged CP. Normal nuclear stress test ~07/2017 Code Status full code Discussed Condition With patient Kishan Klein MD Nov 04, 2017 09:51
--- NOTE | 2017-11-04 10:37 | HHI.DCPOC ---
Discharge Care Plan Diagnosis: (1) Atypical chest pain Goals to Promote Your Health * To prevent worsening of your condition and complications * To maintain your health at the optimal level Directions to Meet Your Goals Take your medications as prescribed Follow your dietary instruction Follow activity as directed Keep your appointments as scheduled Take your immunizations and boosters as scheduled If your symptoms worsen call your PCP, if no PCP go to Urgent Care Center or Emergency Room Smoking is Dangerous to Your Health. Avoid second hand smoke Call the 24-hour hour crisis hotline for domestic abuse at Amalia Roldan Nov 04, 2017 10:37
--- NOTE | 2017-11-04 10:40 | HHI.HP ---
HPI Service Chest pain center Primary Care Physician Previously Dr. Hdez now his replacement but she does not know the name Dr. Castaneda for cardiology Dr. Huffman for rhythm Chief Complaint Tachycardia shortness of breath and chest pain History of Present Illness Very pleasant 57-year-old lady with a long and complicated history of atrial fibrillation. She has had previous ablation procedures after full and thorough evaluation by both Dr. Castaneda and Dr. Huffman. In general she has been under fairly good rhythm control on multiple medications until recently. This pertinent to note that she is also just had her thyroid checked and that her thyroid has been high. Over the last 3-4 days she has been having episodes of atrial fibrillation with very rapid heart rate which precipitates chest discomfort described as a tightness in the middle chest associated with shortness of breath dizziness nausea and diaphoresis. These episodes last from 5-6 minutes and can be quite severe. There are no clear precipitating or relieving factors. The patient has significant risk factors however she underwent a nuclear stress test in June of this year which was negative for ischemia. She is aware of the fact that these episodes are probably related to recurring atrial fibrillation. Review of Systems Consitutional: COMPLAINS OF: Fatigue HEENT: COMPLAINS OF: Lightheadedness Cardiovascular: COMPLAINS OF: See HPI Past Family Social History Allergies: Coded Allergies: acetaminophen (Verified Allergy, Severe, nauseas and vomiting, 11/03/17) nausea and vomiting lisinopril (Verified Adverse Reaction, Severe, weakness, 11/03/17) oxycodone (Verified Adverse Reaction, Severe, nauseas, 11/03/17) nausea and vomiting Past Medical History Asthma Atrial fibrillation Hyperlipidemia Renal stones Headaches Hypertension Hypothyroid Past Surgical History Hysterectomy cardiac ablation tumor removed from the left kidney implantable loop recorder Reported Medications Reported Meds & Active Scripts Active Reported Isosorbide Mononitrate ER (Isosorbide Mononitrate) 30 Mg Florian 30 Mg PO DAILY Amiodarone (Amiodarone HCl) 200 Mg Tab 200 Mg PO DAILY Zolpidem (Zolpidem Tartrate) 10 Mg Tab 10 Mg PO HS PRN Metoprolol Tartrate 50 Mg Tab 50 Mg PO TID Valsartan-Hydrochlorothiazide 320-25 Mg Tab 1 Tab PO DAILY Eliquis (Apixaban) 5 Mg Tab 5 Mg PO BID Amlodipine (Amlodipine Besylate) 5 Mg Tab 5 Mg PO DAILY Active Ordered Medications Current Medications Medications (Trade) Dose Ordered Sig/Robert Route Start Time Stop Time Status Last Admin (NS Flush) 2 ml UNSCH PRN IVF 11/03/17 17:15 11/03/17 18:25 (NS Flush) 2 ml UNSCH PRN IV FLUSH 11/03/17 19:00 (NS Flush) 2 ml BID IV FLUSH 11/03/17 21:00 11/04/17 08:25 (Morphine Inj) 2 mg Q4H PRN IV PUSH 11/03/17 19:00 11/03/17 20:00 (Nitrostat Sl) 0.4 mg Q5M PRN SL 11/03/17 19:00 (Cordarone) 200 mg DAILY PO 11/04/17 09:00 11/04/17 08:25 (Norvasc) 5 mg DAILY PO 11/04/17 09:00 11/04/17 08:25 (Eliquis) 5 mg DAILY PO 11/03/17 23:00 11/04/17 08:25 (Imdur) 30 mg DAILY PO 11/04/17 09:00 11/04/17 08:25 (Lopressor) 50 mg TID PO 11/03/17 23:00 11/03/17 22:49 (Diovan) 320 mg DAILY PO 11/04/17 09:00 11/04/17 08:24 (Hydrodiuril) 25 mg DAILY PO 11/04/17 09:00 11/04/17 08:24 (Ambien) 10 mg HS PRN PO 11/03/17 22:30 11/03/17 22:49 Family History Father living at age 78 with diabetes and renal failure Mother is living age 77 with hypertension hyperlipidemia and thyroid disease Social History Denies alcohol tobacco or substance abuse Physical Exam Vital Signs Vital Signs Date Time Temp Pulse Resp B/P (MAP) Pulse Ox O2 Delivery O2 Flow Rate FiO2 11/04/17 08:00 97.7 53 24 181/94 (123) 96 11/04/17 07:00 48 11/04/17 03:31 98.2 53 16 148/82 (104) 97 11/03/17 23:00 164/74 (104) 11/03/17 23:00 65 11/03/17 22:53 98.3 61 16 177/82 (113) 99 11/03/17 20:05 18 11/03/17 19:51 98.3 62 18 179/91 (120) 97 11/03/17 19:29 58 20 159/77 (104) 99 Room Air 11/03/17 19:20 97 11/03/17 18:30 17 11/03/17 17:44 18 11/03/17 17:40 71 17 143/78 (99) 97 Room Air 11/03/17 17:33 98.1 68 18 146/80 (102) 98 Room Air 11/03/17 17:03 98.1 69 20 100 Room Air 11/03/17 16:50 70 18 99 Room Air 11/03/17 16:15 98.9 78 22 230/116 (154) 100 Room Air Physical Exam Well-nourished well-developed slightly obese lady resting comfortably in bed skin good texture and turgor with scars over the forehead and several surgical incision scars well-healed Head well-healed midline scar from prior fracture Eyes PERRLA EOMI, bilateral cataracts left greater than the right, arcus senilis Mouth mucous membranes moist and well papillated no lesions Neck supple no JVD masses nodes or bruits however she has a clearly defined thyroid (goiter) greater on the right than the left. There is a question of a soft suffle Chest mildly diminished breath sounds but no rales wheezes or rhonchi Cardiovascular loop recorder is noted in upper left chest rhythm is regular and controlled there is a soft 2/6 murmur but no gallop or rub Abdomen is somewhat obese soft nontender no guarding or rebound Extremities no clubbing cyanosis or edema Neurologically she is intact with intact cranial nerves and good motion of all 4 extremities Laboratory Laboratory Tests Test 11/03/17 16:41 11/03/17 17:20 11/03/17 19:40 11/03/17 23:00 White Blood Count 8.3 Red Blood Count 4.92 Hemoglobin 10.8 Hematocrit 35.0 Mean Corpuscular Volume 71.1 Mean Corpuscular Hemoglobin 21.9 Mean Corpuscular Hemoglobin Concent 30.7 Red Cell Distribution Width 14.8 Platelet Count 320 Mean Platelet Volume 9.2 Neutrophils (%) (Auto) 57.2 Lymphocytes (%) (Auto) 32.4 Monocytes (%) (Auto) 7.4 Eosinophils (%) (Auto) 2.6 Basophils (%) (Auto) 0.4 Neutrophils # (Auto) 4.7 Lymphocytes # (Auto) 2.7 Monocytes # (Auto) 0.6 Eosinophils # (Auto) 0.2 Basophils # (Auto) 0.0 CBC Comment DIFF FINAL Differential Comment Blood Urea Nitrogen 9 Creatinine 0.73 Random Glucose 75 Total Protein 7.7 Albumin 3.6 Calcium Level 9.0 Magnesium Level 2.1 Alkaline Phosphatase 126 Aspartate Amino Transf (AST/SGOT) 29 Alanine Aminotransferase (ALT/SGPT) 22 Total Bilirubin 0.3 Sodium Level 141 Potassium Level 3.6 Chloride Level 106 Carbon Dioxide Level 25.0 Anion Gap 10 Estimat Glomerular Filtration Rate 99 Total Creatine Kinase 264 216 193 Creatine Kinase MB 2.2 2.1 1.8 Creatine Kinase MB % 0.8 1.0 0.9 Troponin I LESS THAN 0.02 LESS THAN 0.02 LESS THAN 0.02 B-Type Natriuretic Peptide 51 Prothrombin Time 10.6 Prothromb Time International Ratio 1.0 Activated Partial Thromboplast Time 25.2 Result Diagram: 11/03/17 1641 11/03/17 1641 Imaging Negative chest x-ray Course Patient is ruled out for ACS and is currently stable. She has a recent negative nuclear scan and is followed by both Dr. Castaneda and Dr. Huffman. Further evaluation at this time which is felt to be an appropriate and necessary so she will be discharged to further follow-up on an outpatient basis first of the week with Dr. Castaneda. She is also instructed in the necessity of following with her primary care physician to establish control of her hyperthyroidism. Caprini VTE Risk Assessment Caprini VTE Risk Assessment: No/Low Risk (score <= 1) Caprini Risk Assessment Model Point Value = 1 Point Value = 2 Point Value = 3 Point Value = 5 Age 41-60 Minor surgery BMI > 25 kg/m2 Swollen legs Varicose veins or History of unexplained or recurrent spontaneous Oral contraceptives or hormone replacement Sepsis (< 1 month) Serious lung disease, including pneumonia (< 1 month) Abnormal pulmonary function Acute myocardial infarction Congestive heart failure (< 1 month) History of inflammatory bowel disease Medical patient at bed rest Age 61-74 Arthroscopic surgery Major open surgery (> 45 min) Laparoscopic surgery (> 45 min) Malignancy Confined to bed (> 72 hours) Immobilizing plaster cast Central venous access Age >= 75 History of VTE Family history of VTE Factor V Leiden Prothrombin [id number] Lupus anticoagulant Anticardiolipin antibodies Elevated serum homocysteine Heparin-induced thrombocytopenia Other congenital or acquired thrombophilia Stroke (< 1 month) Elective arthroplasty Hip, pelvis, or leg fracture Acute spinal cord injury (< 1 month) Prophylaxis Regimen Total Risk Factor Score Risk Level Prophylaxis Regimen 0-1 Low Early ambulation 2 Moderate Order ONE of the following: *Sequential Compression Device (SCD) *Heparin 5000 units SQ BID 3-4 Higher Order ONE of the following medications: *Heparin 5000 units SQ TID *Enoxaparin/Lovenox 40 mg SQ daily (WT < 150 kg, CrCl > 30 mL/min) *Enoxaparin/Lovenox 30 mg SQ daily (WT < 150 kg, CrCl > 10-29 mL/min) *Enoxaparin/Lovenox 30 mg SQ BID (WT < 150 kg, CrCl > 30 mL/min) AND/OR *Sequential Compression Device (SCD) 5 or more Highest Order ONE of the following medications: *Heparin 5000 units SQ TID (Preferred with Epidurals) *Enoxaparin/Lovenox 40 mg SQ daily (WT < 150 kg, CrCl > 30 mL/min) *Enoxaparin/Lovenox 30 mg SQ daily (WT < 150 kg, CrCl > 10-29 mL/min) *Enoxaparin/Lovenox 30 mg SQ BID (WT < 150 kg, CrCl > 30 mL/min) AND *Sequential Compression Device (SCD) Assessment and Plan Problem List: (1) Paroxysmal atrial fibrillation ICD Codes: I48.0 - Paroxysmal atrial fibrillation Status: Acute Plan: Patient is currently controlled on multiple medications after ablation. She will be discharged to follow-up with Dr. Huffman in the office the first week. (2) Atypical chest pain ICD Codes: R07.89 - Other chest pain Status: Acute Plan: Patient is ruled out for ACS has a recent nuclear stress test in June of this year so further inpatient evaluation was felt unnecessary. However she is discharged to follow-up first of the week with Dr. Castaneda for further evaluation. Dany Null MD Nov 04, 2017 10:40
[2017-11-04] MEDS ORDERED: IPRAAER INH ×2 (11:19→11:45)
[2017-11-04 12:00] VITALS: BP 160/85; PULSE 53; RESP 22; TEMP 98.5; O2SAT 97
--- NOTE | 2017-11-04 12:56 | EKG ---
Date Performed: 11/03/2017 Time Performed: 22:50:23 PTAGE: 57 years EKG: Sinus rhythm MODERATE T-WAVE ABNORMALITY, CONSIDER ANTERIOR ISCHEMIA ABNORMAL ECG PREVIOUS TRACING : 11/03/2017 20.04 Since the previous tracing, no significant change noted DOCTOR: Dany Null Interpretating Date/Time 11/04/2017 12:52:27
--- NOTE | 2017-11-04 12:56 | EKG ---
Date Performed: 11/03/2017 Time Performed: 20:04:05 PTAGE: 57 years EKG: JUNCTIONAL BRADYCARDIA NONSPECIFIC T-WAVE ABNORMALITY ABNORMAL RHYTHM ECG PREVIOUS TRACING : 11/03/2017 16.53 Since the previous tracing, no significant change noted DOCTOR: Dany Null Interpretating Date/Time 11/04/2017 12:52:40
--- NOTE | 2017-11-04 12:56 | EKG ---
Date Performed: 11/03/2017 Time Performed: 16:53:09 PTAGE: 57 years EKG: JUNCTIONAL RHYTHM NONSPECIFIC T-WAVE ABNORMALITY ABNORMAL RHYTHM ECG PREVIOUS TRACING : 01/14/2017 06.14 Since the previous tracing, no significant change noted DOCTOR: Dany Null Interpretating Date/Time 11/04/2017 12:52:57
[2017-11-04 16:00] VITALS: BP 154/81; PULSE 53; RESP 20; TEMP 98.6; O2SAT 99
== END 2017-11-04 16:44 | disposition home or self-care (01) ==
LOC: NEPC 16:13 → NEDA 19:00 → NEPFCDU 19:44
PROVIDERS: ADMIT Internal Medicine Interventional Cardiology; ATTEND Internal Medicine Interventional Cardiology
DX: I48.0 Paroxysmal atrial fibrillation (principal); R07.89 Other chest pain; I11.0 Hypertensive heart disease with heart failure; I50.9 Heart failure, unspecified; E78.5 Hyperlipidemia, unspecified; E03.9 Hypothyroidism, unspecified; I25.10 Atherosclerotic heart disease of native coronary artery without angina pectoris; E11.9 Type 2 diabetes mellitus without complications; E78.00 Pure hypercholesterolemia, unspecified; J45.909 Unspecified asthma, uncomplicated; Z79.01 Long term (current) use of anticoagulants; Z87.442 Personal history of urinary calculi; Z90.710 Acquired absence of both cervix and uterus; Z82.49 Family history of ischemic heart disease and other diseases of the circulatory system; Z83.3 Family history of diabetes mellitus; Z84.1 Family history of disorders of kidney and ureter
CPT/HCPCS: 71045; 80053; 82550; 82552; 83735; 83880; 84484; 85025; 85610; 85730; 93005; 96374; 96376; 99285; G0378; J2270

== ENCOUNTER 2018-05-05 21:08 | Observation (INO) ==
--- NOTE | 2018-05-05 22:10 | ED ---
HPI General Chief Complaint: Chest Pain Stated Complaint: chest pain/Left side numbness Time Seen by Provider: 05/05/18 21:56 Source: patient Mode of arrival: ambulatory Limitations: no limitations History of Present Illness MD complaint: Reports chest pain STEMI Alert: No Onset (ago): hour(s) Time: 20:30 Duration: constant and improved Onset: during rest Pain location: Reports substernal and left chest Severity: severe (9/10 now 6-7/10) Severity scale (1-10): 7 Quality: Reports tightness, aching, heaviness and sharp Pain radiation: Reports LUE, neck and other (head) Relieving factors: nothing Exacerbating factors: nothing Context: Reports recent surgery (last procedure 03/10/18 cardiac ablation [facility] for atrial fibrillation); Denies recent illness, recent immobilization, recent travel, trauma/injury, new medications and history of DVT/PE Associated symptoms: Reports nausea, dyspnea and cough; Denies vomiting, diaphoresis, sense of impending doom, syncope, palpitations, fever and leg swelling Treatments prior to arrival chest pain: Reports none (was going to take nitroglycerin but was afraid) Related Data On Oral Contraceptives: No Home Medications Medication Instructions Recorded Confirmed amlodipine 10 mg PO DAILY 03/04/18 05/05/18 apixaban [Eliquis] 10 mg PO BID 03/04/18 05/05/18 cyanocobalamin (vitamin B-12) 100 mcg IM QWEEK 03/04/18 05/05/18 lovastatin 10 mg PO DAILY 03/04/18 05/05/18 metoprolol tartrate 25 mg PO BID 03/04/18 05/05/18 phenazopyridine [Pyridium] 200 mg PO TID 03/04/18 05/05/18 Previous Rx's Medication Instructions Recorded metronidazole [Flagyl] 500 mg PO Q12H #14 tab 03/24/18 Allergies Allergy/AdvReac Type Severity Reaction Status Date / Time acetaminophen Allergy Severe nauseas Verified 03/04/18 11:03 and vomiting lisinopril AdvReac Severe weakness Verified 03/04/18 11:03 oxycodone AdvReac Severe Nausea Verified 03/04/18 11:03 Review of Systems ROS: all other systems reviewed are negative [facility] Medical History Medical History Atrial fibrillation (Acute) History of hysterectomy (Acute) Hyperlipemia (Acute) Hypertension (Acute) Kidney stone (Acute) Surgical History Surgical History H/O cardiac radiofrequency ablation (Acute) History of ankle surgery (Acute) History of appendectomy (Acute) History of loop recorder (Acute) Hx of shoulder surgery (Acute) Social History Social History Substance History: No History of Abuse Second Hand Smoke Exposure: No Smoking Status: Never smoker Tobacco Type: Cigarettes How Often Do You Have a Drink Containing Alcohol: Never Recent Travel in [facility] within the Last 8 Weeks: No Recent Out of Country Travel within the Last 8 Weeks: No Immunization History Tetanus Immunization: Unsure Exam Narrative Exam Narrative: GENERAL: Well-developed well-nourished female no acute distress no respiratory distress. GCS 15. SKIN: Focused skin assessment warm/dry. HEAD: Atraumatic. Normocephalic. EYES: Pupils equal and round. No scleral icterus. No injection or drainage. ENT: No nasal bleeding or discharge. Mucous membranes pink and moist. NECK: Trachea midline. No JVD. CARDIOVASCULAR: Regular rate and rhythm. No murmur appreciated. No murmurs rubs or gallops. Bilateral radial pulses 2+ to palpation bilateral dorsalis pedis pulses and posterior tibialis pulses 2+ to palpation. RESPIRATORY: No accessory muscle use. Clear to auscultation. Breath sounds equal bilaterally. GASTROINTESTINAL: Abdomen soft, non-tender, nondistended. Hepatic and splenic margins not palpable. No palpable pulsatile mass. MUSCULOSKELETAL: No obvious deformities. No clubbing. No cyanosis. No edema. NEUROLOGICAL: Awake and alert. GCS 15 no obvious cranial nerve deficits. Motor grossly within normal limits. Bilateral upper extremity lower extremity motor strength intact sensory exam intact as tested. No limb ataxia. No pronator drift. Normal speech. NIHSS:0 PSYCHIATRIC: Appropriate mood and affect; insight and judgment normal. Course Initial Documented Vital Signs Temperature 98.8 F 05/05/18 21:26 Pulse Rate 76 05/05/18 21:26 Respiratory Rate 20 05/05/18 21:26 Blood Pressure 160/82 H 05/05/18 21:26 Pulse Oximetry 99 05/05/18 21:26 Last Documented Vital Signs Temperature 98.6 F 05/06/18 02:48 Pulse Rate 83 05/06/18 02:48 Respiratory Rate 18 05/05/18 21:52 Blood Pressure 132/79 05/06/18 02:48 Pulse Oximetry 95 05/06/18 02:48 Medical Decision Making MDM Narrative Medical decision making narrative: 57-year-old female with known history of hypertension dyslipidemia atrial fibrillation presently taking Eliquis with cardiac ablation 03/10/[address] with prior history of remote TIA presents to the emergency department for complaint of 1 hour or longer onset of retrosternal chest pain dull and aching in nature but radiating sharp pain to her neck and into her arm with tingling of the left upper extremity and mild tingling of the left lower extremity and subsequent development of headache. Patient states that she is taken all of her medications today specifically her blood pressure medications. Patient was anxious about taking nitroglycerin for her chest pain due to reporting accidentally doubling her medication dosing last evening. Patient did not take any medication prior to arrival to the emergency department. Pain at onset 9/ 10 in intensity no double vision no loss of vision no altered mentation no speech disturbance no weakness of the upper extremity or weakness of the lower extremity or ataxia of gait. Patient presents now with persistent chest pain radiating into her neck and arm with decreased tingling to her lower extremity now 7/10 in intensity. Patient identified to have asymmetry of blood pressures right arm to left arm. No pulse discrepancy to palpation. Patient placed on poacher operator with continuous pulse oximetry EKG performed shows sinus rhythm rate of [address] elevation injury pattern or ectopy and normal axis and intervals. IV access obtained specimens collected and sent for resulting imaging study ordered. Patient administered sublingual nitroglycerin 0.4 mg x1 with maintenance IV fluids normal saline 70 cc an hour. Medical Screen Exam Complete: Yes Emergency Medical Condition: Yes Differential Diagnosis Differential Diagnosis: Chest pain, atypical chest pain, ACS, IA, dissection, aneurysm, hypertensive urgency, TIA, CVA, arrhythmia, unlikely GI etiology esophageal spasm/biliary colic/pancreatitis Medical Records Medical records reviewed: Yes I reviewed the patient's medical records. Lab Data Result diagrams: 05/05/18 20:06 05/05/18 20:06 Lab Results 05/05/18 05/05/1818 Range/Units 20:06 20:06 20:06 WBC 12.0 H (4.0-11.0) th/mm3 RBC 4.98 (4.00-5.30) mil/mm3 Hgb 11.5 L (11.6-15.3) gm/dL Hct 35.9 (35.0-46.0) % MCV 72.0 L (80.0-100.0) fL MCH 23.0 L (27.0-34.0) pg MCHC 32.0 (32.0-36.0) % RDW 15.0 (11.6-17.2) % Plt Count 317 (150-450) th/mm3 MPV 9.5 (7.0-11.0) fL Neut % (Auto) 59.5 (16.0-70.0) % Lymph % (Auto) 31.3 (9.0-44.0) % Erie % (Auto) 7.3 (0.0-8.0) % Eos % (Auto) 1.3 (0.0-4.0) % Baso % (Auto) 0.6 (0.0-2.0) % Neut # (Auto) 7.1 (1.8-7.7) th/mm3 Lymph # (Auto) 3.8 (1.0-4.8) th/mm3 Erie # (Auto) 0.9 (0.0-0.9) th/mm3 Eos # (Auto) 0.2 (0.0-0.4) th/mm3 Baso # (Auto) 0.1 (0.0-0.2) th/mm3 WBC Differential . Differential Comment Auto diff final PT 10.9 (9.8-11.6) sec INR 1.1 Ratio APTT 31.1 (23.4-31.7) sec Sodium 140 (136-145) meq/L Potassium 3.2 L (3.5-5.1) meq/L Chloride 103 (98-107) meq/L Carbon Dioxide 30.1 (21.0-32.0) meq/L Anion Gap 7 (5-15) meq/L BUN 15 (7-18) mg/dL Creatinine 0.81 (0.50-1.00) mg/dL Estimated GFR 88 L (>89) mL/min Random Glucose 78 (74-106) mg/dL Calcium 9.1 (8.5-10.1) mg/dL Magnesium (1.5-2.5) mg/dL Total Bilirubin 0.3 (0.2-1.0) mg/dL AST 20 (15-37) U/L ALT 27 (10-53) U/L Alkaline Phosphatase 137 H (45-117) U/L Total Creatine Kinase (26-192) U/L CK-MB (CK-2) (0.5-3.6) ng/mL CK-MB (CK-2) % (0.0-4.0) % Troponin I Less than 0.02 L (0.02-0.05) ng/mL Total Protein 9.0 H (6.4-8.2) g/dL Albumin 4.1 (3.4-5.0) g/dL Lipase 155 (73-393) U/L 05/05/18 05/06/18 Range/Units 20:06 01:45 WBC (4.0-11.0) th/mm3 RBC (4.00-5.30) mil/mm3 Hgb (11.6-15.3) gm/dL Hct (35.0-46.0) % MCV (80.0-100.0) fL MCH (27.0-34.0) pg MCHC (32.0-36.0) % RDW (11.6-17.2) % Plt Count (150-450) th/mm3 MPV (7.0-11.0) fL Neut % (Auto) (16.0-70.0) % Lymph % (Auto) (9.0-44.0) % Erie % (Auto) (0.0-8.0) % Eos % (Auto) (0.0-4.0) % Baso % (Auto) (0.0-2.0) % Neut # (Auto) (1.8-7.7) th/mm3 Lymph # (Auto) (1.0-4.8) th/mm3 Erie # (Auto) (0.0-0.9) th/mm3 Eos # (Auto) (0.0-0.4) th/mm3 Baso # (Auto) (0.0-0.2) th/mm3 WBC Differential Differential Comment PT (9.8-11.6) sec INR Ratio APTT (23.4-31.7) sec Sodium (136-145) meq/L Potassium (3.5-5.1) meq/L Chloride (98-107) meq/L Carbon Dioxide (21.0-32.0) meq/L Anion Gap (5-15) meq/L BUN (7-18) mg/dL Creatinine (0.50-1.00) mg/dL Estimated GFR (>89) mL/min Random Glucose (74-106) mg/dL Calcium (8.5-10.1) mg/dL Magnesium 1.9 (1.5-2.5) mg/dL Total Bilirubin (0.2-1.0) mg/dL AST (15-37) U/L ALT (10-53) U/L Alkaline Phosphatase (45-117) U/L Total Creatine Kinase 199 H 162 (26-192) U/L CK-MB (CK-2) 1.3 (0.5-3.6) ng/mL CK-MB (CK-2) % 0.7 (0.0-4.0) % Troponin I Less than 0.02 L (0.02-0.05) ng/mL Total Protein (6.4-8.2) g/dL Albumin (3.4-5.0) g/dL Lipase (73-393) U/L Imaging Data Radiologist's impression: Abdomen/Pelvis CT 05/05/18 21:56 CONCLUSION: 1. No acute abnormality. 2. Mild hiatal hernia. 3. Right adrenal gland hyperplasia focal mass. The appearance of the right implant is stable. The mass likely represents an adenoma. 4. Stable small 0.6 cm hypodensity in the anterior to the left lobe of the liver. The stability of this finding is suggestive of a benign process such as a small cyst or hemangioma. Chest CT 05/05/18 21:56 CONCLUSION: 1. No acute abnormality is seen. 2. Mild hiatal hernia. 3. Right adrenal gland hyperplasia and 1.5 cm focal mass likely related to an adenoma. Chest X-Ray 05/05/18 21:56 CONCLUSION: No acute cardiopulmonary disease. Head CT 05/05/18 21:56 CONCLUSION: 1. No acute areas of hemorrhage or mass effect. 2. Low density in the cerebral white matter likely from underlying demyelinating condition such as small vessel ischemic change. 3. Old lacunar infarct at the posterior left basal ganglia. . Head CTA 05/05/18 22:00 CONCLUSION: Negative CTA of the head. . Neck CTA 05/05/18 22:00 CONCLUSION: 1. No significant stenosis is seen. 2. Diffuse heterogeneity of the thyroid with nodules. ECG Data EKG Prior to Arrival: No Attestation: I personally reviewed and interpreted this ECG as follows: (EKG: Normal sinus rhythm rate 82 normal axis and intervals no acute ST elevation injury pattern or ectopy noted artifact is present at baseline) Discharge Plan Discharge Disposition Patient Disposition: ED Admit(ED Internal Use Only) Discharge Condition Condition: Stable Discharge Order Discharge Orders: ED Use Only Admit Order (Routine); Ordered 05/06/18 Ordered By: Prabha Almanzar Discharge Details Diagnosis: Chest pain Physicians Team ED Provider: Prabha Almanzar Primary Care Provider: UNKNOWN, Attending Provider: Dany Null Discharge Interventions Interventions: ED Discharge Assessment Last Done: 05/06/18 04:18 Status ED Status: Admitted Observation Patient
[2018-05-05] MEDS: Sod Chloride 0.9% Inj 1,000 ML IV.CONT SCH (22:11)
[2018-05-05 22:25] LABS: Baso # (Auto) 0.1 th/mm3 (0.0-0.2); Baso % (Auto) 0.6 % (0.0-2.0); Eos # (Auto) 0.2 th/mm3 (0.0-0.4); Eos % (Auto) 1.3 % (0.0-4.0); Hematocrit 35.9 % (35.0-46.0); Hemoglobin 11.5 gm/dL (11.6-15.3); Lymph # (Auto) 3.8 th/mm3 (1.0-4.8); Lymph % (Auto) 31.3 % (9.0-44.0); Mean Platelet Volume 9.5 fL (7.0-11.0); Mono # (Auto) 0.9 th/mm3 (0.0-0.9); Mono % (Auto) 7.3 % (0.0-8.0); Neut # (Auto) 7.1 th/mm3 (1.8-7.7); Neut % (Auto) 59.5 % (16.0-70.0); Platelet Count 317 th/mm3 (150-450); Red Blood Count 4.98 mil/mm3 (4.00-5.30)
[2018-05-05 22:29] LABS: Activated Partial Thrombo Time 31.1 sec (23.4-31.7); INR 1.1 Ratio; Prothrombin Time 10.9 sec (9.8-11.6)
--- NOTE | 2018-05-05 22:36 | XR ---
EXAM DATE: 05/05/2018 10:29 PM EST AGE/SEX: 57 years / Female INDICATIONS: Left side chest pain. Shortness of breath. CLINICAL DATA: This is the patient's initial encounter. Patient reports that signs and symptoms have been present for 1 day and indicates a pain score of 5/10. MEDICAL/SURGICAL HISTORY: Hypertension. A-fib. Appendectomy. Hysterectomy. Loop recorder. Abl ation. COMPARISON: [facility] – [place], CHEST SINGLE AP, 11/03/2017. . FINDINGS: The lungs are clear without infiltrate, nodule, or mass. There is no appreciable pleural effusion for technique. Heart and mediastinum are unremarkable. Cardiac loop recorder is again seen. CONCLUSION: No acute cardiopulmonary disease. Electronically signed by: Joycelyn Augustine MD Board Certified Radiologist 05/05/2018 10:34 PM EST
[2018-05-05 22:43] LABS: Alanine Aminotransferase 27 U/L (10-53); Albumin 4.1 g/dL (3.4-5.0); Anion Gap 7 meq/L (5-15); Aspartate Aminotransferase 20 U/L (15-37); Blood Urea Nitrogen 15 mg/dL (7-18); Calcium 9.1 mg/dL (8.5-10.1); Carbon Dioxide 30.1 meq/L (21.0-32.0); Chloride 103 meq/L (98-107); Glomerular Filtration Rate 88 mL/min (>89); Glucose,Random 78 mg/dL (74-106); Lipase 155 U/L (73-393); Potassium 3.2 meq/L (3.5-5.1); Sodium 140 meq/L (136-145)
[2018-05-05 22:47] LABS: Alkaline Phosphatase 137 U/L (45-117)
--- NOTE | 2018-05-05 23:54 | CT ---
EXAM DATE: 05/05/2018 11:49 PM EST AGE/SEX: 57 years / Female INDICATIONS: Headache. CLINICAL DATA: This is the patient's initial encounter. Patient reports that signs and symptoms have been present for 1 day and indicates a pain score of 3/10. MEDICAL/SURGICAL HISTORY: Cardiovascular disease. Renal calculi. Cardiac ablation X 5 Hysterectom y. Appendectomy. RADIATION DOSE: 52.83 CTDI (mGy) COMPARISON: No prior exams available for comparison. TECHNIQUE: CT of the head without contrast. Using automated exposure control and adjustment of the mA and/or kV according to patient size, radiation dose was kept as low as reasonably achievable to ob tain optimal diagnostic quality images. DICOM format image data is available electronically for revi ew and comparison. FINDINGS: Cerebrum: The ventricles are normal for age. No evidence of midline shift, mass lesion, hemorrhage or acute infarction. There is decreased density seen in the periventricular white matter. There appea rs to be an old lacunar infarct at the posterior left basal ganglia. No extraaxial fluid collections are seen. Posterior Fossa: The cerebellum and brainstem are intact. The 4th ventricle is midline. The cerebe llopontine angle is unremarkable. Extracranial: The visualized portion of the orbits is intact. Skull: The calvaria is intact. No evidence of skull fracture. CONCLUSION: 1. No acute areas of hemorrhage or mass effect. 2. Low density in the cerebral white matter likely from underlying demyelinating condition such as s mall vessel ischemic change. 3. Old lacunar infarct at the posterior left basal ganglia. . Electronically signed by: Gianfranco Quarles MD Board Certified Radiologist 05/05/2018 11:52 PM EST
--- NOTE | 2018-05-05 23:58 | CT ---
EXAM DATE: 05/05/2018 11:52 PM EST AGE/SEX: 57 years / Female INDICATIONS: Chest pain. Patient felt relief after nitroglycerin. CLINICAL DATA: This is the patient's initial encounter. Patient reports that signs and symptoms have been present for 1 day and indicates a pain score of 7/10. MEDICAL/SURGICAL HISTORY: Cardiovascular disease. Renal calculi. Cardiac ablation X 5, atrial fibr illation Hysterectomy. Appendectomy. RADIATION DOSE: 6.63 CTDI (mGy) ; Combined studies COMPARISON: No prior exams available for comparison. TECHNIQUE: Multiple contiguous axial images were obtained through the chest during bolus infusion of 55 ml Omnipaque 350 (iohexol) nonionic water-soluble contrast as a cumulative dose for multiple exa ms. Images were obtained in suspended respiration using multiple row detector helical technique. U sing automated exposure control and adjustment of the mA and/or kV according to patient size, radiati on dose was kept as low as reasonably achievable to obtain optimal diagnostic quality images. DICOM format image data is available electronically for review and comparison. FINDINGS: Lungs: The lungs are symmetrically aerated. No infiltrates or nodular densities are seen. Mediastinum: There is good visualization of the great vessels of the middle mediastinum. No evidenc e of mediastinal or hilar adenopathy/mass. Pleurae: No evidence of focal thickening or pleural effusion. Axillae: Unremarkable. Bony Structures: Unremarkable. Miscellaneous: There is diffuse enlargement of the right adrenal gland including a 1.5 cm focal area of nodularity at the anterior lateral limb of the right adrenal gland. The left adrenal gland appear s small. There is a possible mild hiatal hernia present. There is a loop recorder seen in the left est. CONCLUSION: 1. No acute abnormality is seen. 2. Mild hiatal hernia. 3. Right adrenal gland hyperplasia and 1.5 cm focal mass likely related to an adenoma. Electronically signed by: Gianfranco Quarles MD Board Certified Radiologist 05/05/2018 11:56 PM EST
--- NOTE | 2018-05-06 00:03 | CT ---
EXAM DATE: 05/05/2018 11:55 PM EST AGE/SEX: 57 years / Female INDICATIONS: Epigastric pain. CLINICAL DATA: This is the patient's initial encounter. Patient reports that signs and symptoms have been present for 1 day and indicates a pain score of 3/10. MEDICAL/SURGICAL HISTORY: Cardiovascular disease. Renal calculi. Cardiac ablation, atrial fibr illation Hysterectomy. Appendectomy. ORAL CONTRAST: No oral contrast ingested. RADIATION DOSE: 6.63 CTDI (mGy) ; Combined studies COMPARISON: [facility] – [place], CT ABDOMEN & PELVIS W CONTRAST, 10/04/2015. . TECHNIQUE: Multiple contiguous axial images were obtained through the abdomen and pelvis following b olus infusion of 55 ml Omnipaque 350 (iohexol) nonionic water-soluble contrast as a cumulative dose for multiple exams. No oral contrast ingested. Using automated exposure control and adjustment of t he mA and/or kV according to patient size, radiation dose was kept as low as reasonably achievable to obtain optimal diagnostic quality images. DICOM format image data is available electronically for r eview and comparison. FINDINGS: Lower Lungs: The visualized lower lungs are clear. Liver: The liver has a homogeneous density. There is a stable 0.6 cm hypodensity in the anterior aspe ct of the lateral segment the left lobe of the liver. Without space-occupying lesion. There is no dil ation of the biliary tree. Spleen: Homogeneous density without enlargement. Pancreas: Unremarkable without mass or calcification. Kidneys: Normal in size and shape. No evidence of hydronephrosis. There is a small subcentimeter cys t at the posterior inferior right kidney. Adrenal Glands: There is diffuse enlargement of the right adrenal gland with a focal 1.5 cm mass at the anterior lateral limb of the right adrenal gland. The left adrenal gland is small. The appearanc e of the right adrenal gland is stable when compared to the prior CT examination. Aorta: The aorta and proximal iliac vessels are grossly unremarkable without aneurysmal dilation. T here are scattered atherosclerotic calcification seen in the common iliac arteries. Bowel/Mesentery: There is a mild hiatal hernia. The appendix is not seen. Significant inflammatory c hange is not seen throughout. Abdominal Wall: Intact. Retroperitoneum: No evidence of adenopathy in the retrocrural, para-aortic, or deep pelvic regions. Bladder: Contours are smooth. Reproductive Organs: The patient is status post hysterectomy. Inguinal: The inguinal region is unremarkable without evidence of adenopathy. Bony Structures: There is degenerative change in the lower lumbar spine. CONCLUSION: 1. No acute abnormality. 2. Mild hiatal hernia. 3. Right adrenal gland hyperplasia focal mass. The appearance of the right implant is stable. The ma ss likely represents an adenoma. 4. Stable small 0.6 cm hypodensity in the anterior to the left lobe of the liver. The stability of t his finding is suggestive of a benign process such as a small cyst or hemangioma. Electronically signed by: Gianfranco Quarles MD Board Certified Radiologist 05/06/2018 12:02 AM EST
--- NOTE | 2018-05-06 00:05 | CT ---
EXAM DATE: 05/05/2018 11:57 PM EST AGE/SEX: 57 years / Female INDICATIONS: Headache. CLINICAL DATA: This is the patient's initial encounter. Patient reports that signs and symptoms have been present for 1 day and indicates a pain score of 3/10. MEDICAL/SURGICAL HISTORY: Cardiovascular disease. Renal calculi. Cardiac ablation Hysterectomy. Appendectomy. RADIATION DOSE: 12.56 CTDI (mGy) COMPARISON: No prior exams available for comparison. TECHNIQUE: Volumetric scanning was performed using a multi-row detector CT scanner during bolus infu shiva of 65 ml Omnipaque 350 (iohexol) nonionic water-soluble contrast as a cumulative dose for multi ple exams. The data was post processed with a variety of visualization algorithms including full vo lume maximum intensity projection, multi-planar sliding thin slab reformation, curved planar reformat ion, and surface rendering techniques. Using automated exposure control and adjustment of the mA and /or kV according to patient size, radiation dose was kept as low as reasonably achievable to obtain o ptimal diagnostic quality images. DICOM format image data is available electronically for review and comparison. FINDINGS: There is excellent visualization of the major intracranial arteries out to the second-order branch ve ssels. There is no evidence for aneurysm, vessel truncation or stenosis, and no evidence for vascula r malformation. CONCLUSION: Negative CTA of the head. . Electronically signed by: Gianfranco Quarles MD Board Certified Radiologist 05/06/2018 12:04 AM EST
--- NOTE | 2018-05-06 00:24 | CT ---
EXAM DATE: 05/06/2018 12:14 AM EST AGE/SEX: 57 years / Female INDICATIONS: Headache; rule out dissection CLINICAL DATA: This is the patient's initial encounter. Patient reports that signs and symptoms have been present for 1 day and indicates a pain score of 3/10. MEDICAL/SURGICAL HISTORY: Cardiovascular disease. Renal calculi. Cardiac ablation Hysterectomy. Appendectomy. RADIATION DOSE: 12.56 CTDI (mGy) ; Combined studies COMPARISON: No prior exams available for comparison. TECHNIQUE: Volumetric scanning was performed using a multirow detector CT scanner during bolus infus ion of 65 ml Omnipaque 350 (iohexol) nonionic water-soluble contrast as a cumulative dose for multip le exams. The data was postprocessed with a variety of visualization algorithms including full-volu me maximum intensity projection, multiplanar sliding thin-slab reformation, curved-planar reformation , and surface-rendering techniques. Using automated exposure control and adjustment of the mA and/or kV according to patient size, radiation dose was kept as low as reasonably achievable to obtain opti mal diagnostic quality images. DICOM format image data is available electronically for review and co mparison. FINDINGS: Aortic Arch: The left common carotid artery arises from the base of the right brachiocephalic artery . This is a normal variant. The left subclavian artery origin is normal. Right Carotid: The common carotid artery is intact. There is mild calcified plaque at the carotid b ulb region without a significant stenosis. The internal carotid artery lumen is smooth without stenos is. The external carotid artery is intact. Left Carotid: The common carotid artery is intact. The carotid bulb has a normal configuration with out ulceration or narrowing. The internal carotid artery lumen is smooth without stenosis. The exte rnal carotid artery is intact. Vertebrals: The vertebral arteries have a symmetric diameter. No stenotic lesions are seen. There is enlargement of the thyroid especially at the right lobe with heterogeneity and nodularity. Percent stenosis is calculated using the diameter of the stenotic region over the diameter of the nor mal distal internal carotid artery. CONCLUSION: 1. No significant stenosis is seen. 2. Diffuse heterogeneity of the thyroid with nodules. Electronically signed by: Gianfranoc Quarles MD Board Certified Radiologist 05/06/2018 12:22 AM EST
[2018-05-06 01:25] LABS: Magnesium 1.9 mg/dL (1.5-2.5)
[2018-05-06 01:44] LABS: CKMB Percent 0.7 % (0.0-4.0); Creatine Kinase MB 1.3 ng/mL (0.5-3.6)
[2018-05-06 02:21] LABS: Creatine Kinase 162 U/L (26-192)
[2018-05-06 06:24] LABS: Creatine Kinase 152 U/L (26-192)
--- NOTE | 2018-05-06 10:10 | P.PNCA ---
Subjective Interval history: Patient was seen and evaluated by the nurse practitioner and subsequently seen and evaluated personally. She is known to this physician from prior encounters. She has a complex history of recurring episodes of atrial fibrillation and has received 5 ablations including the most recent by Dr. Javier at [facility]. She also has a prior history of catheterization which showed only mild disease and nuclear stress testing earlier this year which was reported as negative by Dr. Wagner. Her current presentation began with palpitations that she believes are similar to her prior arrhythmic episodes. However this was associated by severe chest pain blurred vision nausea and chest pain radiating into the left arm. She has subsequently resolved and is currently resting comfortably. She is ruled out with 3 sets of cardiac enzymes and EKG showing no change. She is already scheduled for follow- up with Dr. Castaneda on Monday and at this point further evaluation was not felt appropriate. Medications and Allergies Active Medications: Active Medications Sodium Chloride (Ns Inj) 1,000 mls @ 100 mls/hr IV.CONT .Q10H NADEGE Last Infusion: 05/06/18 04:01 Dose: 0 mls/hr Nitroglycerin (Nitrostat Sl) 0.4 mg SL Q5M PRN PRN Reason: CHEST PAIN Sodium Chloride (Ns Flush) 2 ml IV.FLUSH UNSCH PRN PRN Reason: FLUSH AFTER USING IV ACCESS Sodium Chloride (Ns Flush) 2 ml IV.FLUSH BID NADEGE Sodium Chloride (Ns Flush) 2 ml IV.FLUSH PRN PRN PRN Reason: FLUSH AFTER USING IV ACCESS Allergies Allergy/AdvReac Type Severity Reaction Status Date / Time acetaminophen Allergy Severe nauseas Verified 03/04/18 11:03 and vomiting lisinopril AdvReac Severe weakness Verified 03/04/18 11:03 oxycodone AdvReac Severe Nausea Verified 03/04/18 11:03 Home Medications Medication Instructions Recorded Confirmed Type amlodipine 10 mg PO DAILY 03/04/18 05/05/18 History apixaban [Eliquis] 10 mg PO BID 03/04/18 05/05/18 History cyanocobalamin (vitamin B-12) 100 mcg IM QWEEK 03/04/18 05/05/18 History lovastatin 10 mg PO DAILY 03/04/18 05/05/18 History metoprolol tartrate 25 mg PO BID 03/04/18 05/05/18 History phenazopyridine [Pyridium] 200 mg PO TID 03/04/18 05/05/18 History Physical Exam Vital signs: Vital Signs 05/05/18 21:26 05/05/18 21:47 05/05/18 21:51 Temperature 98.8 F Pulse Rate 76 82 80 Respiratory Rate 20 16 16 Blood Pressure 160/82 H 158/82 H 157/88 H Pulse Oximetry 99 99 98 05/05/18 21:52 05/06/18 02:48 05/06/18 04:00 Temperature 98.6 F Pulse Rate 80 83 79 Respiratory Rate 18 Blood Pressure 178/96 H 132/79 Pulse Oximetry 99 95 05/06/18 08:00 05/06/18 08:22 Temperature Pulse Rate 71 Respiratory Rate 16 Blood Pressure 130/79 Pulse Oximetry 98 99 Intake & Output 05/05/18 05/06/18 05/06/18 18:59 06:59 18:59 Intake Total 0 / 0 Balance 0 / 0 Weight 79.379 kg Intake: Oral 0 / 0 Other: # Voids 1 Weight On Admission 98.9 kg Narrative: Well-nourished well-developed somewhat obese black lady resting comfortably Neck supple no JVD masses nodes or bruits Chest nontender clear to auscultation Cardiovascular the rhythm is regular with no gallops rubs or murmurs Results 05/05/18 20:06 05/05/18 20:06 Cardiac Enzymes 05/05/18 05/05/18 05/06/18 Range/Units 20:06 20:06 01:45 AST 20 (15-37) U/L CK-MB (CK-2) 1.3 (0.5-3.6) ng/mL Troponin I Less than 0.02 L Less than 0.02 L (0.02-0.05) ng/mL 05/06/18 Range/Units 05:15 AST (15-37) U/L CK-MB (CK-2) (0.5-3.6) ng/mL Troponin I Less than 0.02 L (0.02-0.05) ng/mL Coagulation 05/05/18 Range/Units 20:06 PT 10.9 (9.8-11.6) sec APTT 31.1 (23.4-31.7) sec CBC 05/05/18 Range/Units 20:06 WBC 12.0 H (4.0-11.0) th/mm3 RBC 4.98 (4.00-5.30) mil/mm3 Hgb 11.5 L (11.6-15.3) gm/dL Hct 35.9 (35.0-46.0) % Plt Count 317 (150-450) th/mm3 Neut # (Auto) 7.1 (1.8-7.7) th/mm3 Lymph # (Auto) 3.8 (1.0-4.8) th/mm3 [place] # (Auto) 0.9 (0.0-0.9) th/mm3 Eos # (Auto) 0.2 (0.0-0.4) th/mm3 Baso # (Auto) 0.1 (0.0-0.2) th/mm3 Comprehensive Metabolic Panel 05/05/18 Range/Units 20:06 Sodium 140 (136-145) meq/L Potassium 3.2 L (3.5-5.1) meq/L Chloride 103 (98-107) meq/L Carbon Dioxide 30.1 (21.0-32.0) meq/L BUN 15 (7-18) mg/dL Creatinine 0.81 (0.50-1.00) mg/dL Calcium 9.1 (8.5-10.1) mg/dL AST 20 (15-37) U/L ALT 27 (10-53) U/L Alkaline Phosphatase 137 H (45-117) U/L Total Protein 9.0 H (6.4-8.2) g/dL Albumin 4.1 (3.4-5.0) g/dL Intake and Output 05/05/18 05/06/18 05/06/18 22:59 06:59 14:59 Intake Total 0 / 0 Balance 0 / 0 Intake: Oral 0 / 0 Other: # Voids 1 Weight 79.379 kg 79.379 kg Weight On Admission 98.9 kg - Imaging and Cardiology Imaging: Impressions Abdomen/Pelvis CT 05/05/18 21:56 CONCLUSION: 1. No acute abnormality. 2. Mild hiatal hernia. 3. Right adrenal gland hyperplasia focal mass. The appearance of the right implant is stable. The mass likely represents an adenoma. 4. Stable small 0.6 cm hypodensity in the anterior to the left lobe of the liver. The stability of this finding is suggestive of a benign process such as a small cyst or hemangioma. Chest CT 05/05/18 21:56 CONCLUSION: 1. No acute abnormality is seen. 2. Mild hiatal hernia. 3. Right adrenal gland hyperplasia and 1.5 cm focal mass likely related to an adenoma. Chest X-Ray 05/05/18 21:56 CONCLUSION: No acute cardiopulmonary disease. Head CT 05/05/18 21:56 CONCLUSION: 1. No acute areas of hemorrhage or mass effect. 2. Low density in the cerebral white matter likely from underlying demyelinating condition such as small vessel ischemic change. 3. Old lacunar infarct at the posterior left basal ganglia. . Head CTA 05/05/18 22:00 CONCLUSION: Negative CTA of the head. . Neck CTA 05/05/18 22:00 CONCLUSION: 1. No significant stenosis is seen. 2. Diffuse heterogeneity of the thyroid with nodules. Assessment and Plan - Plan This patient is extensively followed by Dr. Huffman and Dr. Castaneda. Her current presentation was atypical may well have been related to the another arrhythmia. She is ruled out for ACS using standard protocol and already had a negative nuclear scan earlier in this year. Further evaluation will not be carried out at this time and she will be referred back to follow-up with Dr. Castaneda on her scheduled appointment of Monday of this week.
[2018-05-06] MEDS ORDERED: Metoprolol Tartrate 25 MG Tablet PO SCH (10:15)
[2018-05-06] MEDS ORDERED: amLODIPine 10 MG Tablet PO SCH (10:15)
[2018-05-06] MEDS: Sod Chloride 0.9% Inj 1,000 ML IV.CONT SCH (10:50)
[2018-05-06 11:01] VITALS: BP 174/98; RESP 18; TEMP 98.7; O2SAT 96
--- NOTE | 2018-05-06 11:21 | P.HPCA ---
History of Present Illness Primary Care Physician: Dr. Kristine Ballard Chief Complaint: Chest pain History of Present Illness: 57 year old female with long standing history of paroxysmal A. fib,x5 cardiac ablations most recent cardiac ablation completed [facility] on 03/12/18, hypertension, and hyperlipidemia presents to ER for further evaluation of chest pain. Onset 730 pm, while watching television. Location left anterior chest with radiation left side of neck, left shoulder, left arm, and left leg. Characterized as heaviness. Associated symptoms included headache, nausea, dizziness, blurred vision. No nausea, shortness of breath, or diaphoresis. Duration 1.5 hours. No precipitating or relieving factors, although reports nitroglycerin given in ER "eased pain up somewhat." Denies slurred speech, facial droop, or left sided weakness. Patient's legal recruiter are Dr. Corrales and Dr. Velázquez and states being scheduled for further cardiac testing at [place] Monday. Reports cardiac nuclear testing completed earlier this year reported to be normal. Past cardiac testing 06/2017 Lexiscan (completed at [facility]) per legal recruiter consult notes scan unremarkable. 04/12/2010 Cardiac catheterization (Dr. Valdez) showing normal elft man, normal LAD, 15% obtuse marginal stenosis, 25% and 30% proximal right coronary artery stenosis. (Per Dr. Klein consultation note October 2017) Social history Known hypertension and hyperlipidemia. No known diabetes. Lifelong non-smoker. Denies any alcohol or recreational drug use. . Endorses sedentary lifestyle. Family history Maternal grandmother age 40 from reported massive [place]. - Diagnosis (1) Atypical chest pain (2) Hypokalemia Review of Systems All other systems reviewed negative except as stated in HPI PMFSH - History History Provided By: Patient - Medical History Medical History: Medical History (Last Reviewed 05/05/18 @ 22:05 by Prabha Almanzar MD) Atrial fibrillation History of hysterectomy Hyperlipemia Hypertension Kidney stone - Surgical History Surgical History: Surgical History (Last Reviewed 05/05/18 @ 22:05 by Prabha Almanzar MD) H/O cardiac radiofrequency ablation History of ankle surgery History of appendectomy History of loop recorder Hx of shoulder surgery - Family History Family History: Family History (Last Updated 05/06/18 @ 11:18 by EDUIN Alejandra) Father Diabetes Hypertension Mother Diabetes Hypertension Grandparent Myocardial infarction - Tobacco History Second Hand Smoke Exposure: No Smoking Status: Never smoker - Alcohol History How Often Do You Have a Drink Containing Alcohol: Never - Substance Use History Substance History: No History of Abuse - Travel History Recent Travel in the [place] Within the Last 8 Weeks: No Recent Travel Out of the Country Within the Last 8 Weeks: No - Immunization History Tetanus Immunization: Unsure Medications and Allergies Allergies Allergy/AdvReac Type Severity Reaction Status Date / Time acetaminophen Allergy Severe nauseas Verified 03/04/18 11:03 and vomiting lisinopril AdvReac Severe weakness Verified 03/04/18 11:03 oxycodone AdvReac Severe Nausea Verified 03/04/18 11:03 Home Medications Medication Instructions Recorded Confirmed Type amlodipine 10 mg PO DAILY 03/04/18 05/05/18 History apixaban [Eliquis] 5 mg PO BID 03/04/18 05/06/18 History cyanocobalamin (vitamin B-12) 100 mcg IM QWEEK 03/04/18 05/05/18 History acetaminophen-codeine See Label Instructions .ROUTE 05/06/18 05/06/18 History .COMPLEX PRN isosorbide mononitrate 30 mg PO DAILY 05/06/18 05/06/18 History losartan-hydrochlorothiazide 1 tab PO DAILY 05/06/18 05/06/18 History nitroglycerin 0.4 mg SUBLINGUAL PRN PRN 05/06/18 05/06/18 History zolpidem 10 mg PO PRN PRN 05/06/18 05/06/18 History Active Medications: Active Medications Amlodipine Besylate (Norvasc) 10 mg PO DAILY NADEGE Apixaban (Eliquis) 10 mg PO BID NADEGE Sodium Chloride (Ns Inj) 1,000 mls @ 100 mls/hr IV.CONT .Q10H [facility] Last Admin: 05/06/18 10:50 Dose: Not Given Metoprolol Tartrate (Lopressor) 25 mg PO BID NADEGE Nitroglycerin (Nitrostat Sl) 0.4 mg SL Q5M PRN PRN Reason: CHEST PAIN Sodium Chloride (Ns Flush) 2 ml IV.FLUSH UNSCH PRN PRN Reason: FLUSH AFTER USING IV ACCESS Sodium Chloride (Ns Flush) 2 ml IV.FLUSH BID NADEGE Sodium Chloride (Ns Flush) 2 ml IV.FLUSH PRN PRN PRN Reason: FLUSH AFTER USING IV ACCESS Exam Vital signs: Vital Signs 05/05/18 21:26 05/05/18 21:47 05/05/18 21:51 Temperature 98.8 F Pulse Rate 76 82 80 Respiratory Rate 20 16 16 Blood Pressure 160/82 H 158/82 H 157/88 H Pulse Oximetry 99 99 98 05/05/18 21:52 05/06/18 02:48 05/06/18 04:00 Temperature 98.6 F Pulse Rate 80 83 79 Respiratory Rate 18 Blood Pressure 178/96 H 132/79 Pulse Oximetry 99 95 05/06/18 08:00 05/06/18 08:22 05/06/18 09:00 Temperature 98.7 F Pulse Rate 71 88 Respiratory Rate 16 18 Blood Pressure 130/79 174/98 H Pulse Oximetry 98 99 96 Intake & Output 05/05/18 05/06/18 05/06/18 18:59 06:59 18:59 Intake Total 0 / 0 Balance 0 / 0 Weight 79.379 kg Intake: Oral 0 / 0 Other: # Voids 1 Weight On Admission 98.9 kg Narrative: GENERAL: Alert WN, WD, NAD, pleasant, obese, -[place]ijani female HEAD: NC, AT NECK: Supple, no masses, trachea midline CV: RRR, without murmur, rub, gallop, no JVD, S1-S2. Chest wall tender to palpation, not reproducible pain RESP: Clear lungs throughout bilateral, no crackles, wheeze, rhonchi, symmetrical chest rise, nonlabored, able to speak in full sentences ABD: Soft, NT, ND, no masses, positive bowel tones BACK: No scoliosis EXT: Pulses +2x4, no dependent edema MS: Normal tone x4 extremities, nontender, no obvious deformities, full range of motion NEURO: Motor strength 5/5 PSYCH: A+O x3, pleasant affect, appropriate speech, mood, insight and judgment SKIN: Normal turgor, normal texture, no lesions, no rashes Results 05/05/18 20:06 05/05/18 20:06 Cardiac Enzymes 05/05/18 05/05/18 05/06/18 Range/Units 20:06 20:06 01:45 AST 20 (15-37) U/L CK-MB (CK-2) 1.3 (0.5-3.6) ng/mL Troponin I Less than 0.02 L Less than 0.02 L (0.02-0.05) ng/mL 05/06/18 Range/Units 05:15 AST (15-37) U/L CK-MB (CK-2) (0.5-3.6) ng/mL Troponin I Less than 0.02 L (0.02-0.05) ng/mL Coagulation 05/05/18 Range/Units 20:06 PT 10.9 (9.8-11.6) sec APTT 31.1 (23.4-31.7) sec CBC 05/05/18 Range/Units 20:06 WBC 12.0 H (4.0-11.0) th/mm3 RBC 4.98 (4.00-5.30) mil/mm3 Hgb 11.5 L (11.6-15.3) gm/dL Hct 35.9 (35.0-46.0) % Plt Count 317 (150-450) th/mm3 Neut # (Auto) 7.1 (1.8-7.7) th/mm3 Lymph # (Auto) 3.8 (1.0-4.8) th/mm3 [place] # (Auto) 0.9 (0.0-0.9) th/mm3 Eos # (Auto) 0.2 (0.0-0.4) th/mm3 Baso # (Auto) 0.1 (0.0-0.2) th/mm3 Comprehensive Metabolic Panel 05/05/18 Range/Units 20:06 Sodium 140 (136-145) meq/L Potassium 3.2 L (3.5-5.1) meq/L Chloride 103 (98-107) meq/L Carbon Dioxide 30.1 (21.0-32.0) meq/L BUN 15 (7-18) mg/dL Creatinine 0.81 (0.50-1.00) mg/dL Calcium 9.1 (8.5-10.1) mg/dL AST 20 (15-37) U/L ALT 27 (10-53) U/L Alkaline Phosphatase 137 H (45-117) U/L Total Protein 9.0 H (6.4-8.2) g/dL Albumin 4.1 (3.4-5.0) g/dL Intake and Output 05/05/18 05/06/18 05/06/18 22:59 06:59 14:59 Intake Total 0 / 0 Balance 0 / 0 Intake: Oral 0 / 0 Other: # Voids 1 Weight 79.379 kg 79.379 kg Weight On Admission 98.9 kg - Imaging and Cardiology Imaging: Impressions Abdomen/Pelvis CT 05/05/18 21:56 CONCLUSION: 1. No acute abnormality. 2. Mild hiatal hernia. 3. Right adrenal gland hyperplasia focal mass. The appearance of the right implant is stable. The mass likely represents an adenoma. 4. Stable small 0.6 cm hypodensity in the anterior to the left lobe of the liver. The stability of this finding is suggestive of a benign process such as a small cyst or hemangioma. Chest CT 05/05/18 21:56 CONCLUSION: 1. No acute abnormality is seen. 2. Mild hiatal hernia. 3. Right adrenal gland hyperplasia and 1.5 cm focal mass likely related to an adenoma. Chest X-Ray 05/05/18 21:56 CONCLUSION: No acute cardiopulmonary disease. Head CT 05/05/18 21:56 CONCLUSION: 1. No acute areas of hemorrhage or mass effect. 2. Low density in the cerebral white matter likely from underlying demyelinating condition such as small vessel ischemic change. 3. Old lacunar infarct at the posterior left basal ganglia. . Head CTA 05/05/18 22:00 CONCLUSION: Negative CTA of the head. . Neck CTA 05/05/18 22:00 CONCLUSION: 1. No significant stenosis is seen. 2. Diffuse heterogeneity of the thyroid with nodules. EKG interpretations - EKG EKG results cardiology: sinus rhythm (Nonspecific st t ) Caprini VTE Risk Assessment Caprini VTE Risk Assessment: No/Low Risk (score <= 1) Caprini Risk Assessment Model: Point Value = 1 Point Value = 2 Point Value = 3 Point Value = 5 Age 41-60 Minor surgery BMI > 25 kg/m2 Swollen legs Varicose veins or History of unexplained or recurrent spontaneous Oral contraceptives or hormone replacement Sepsis (< 1 month) Serious lung disease, including pneumonia (< 1 month) Abnormal pulmonary function Acute myocardial infarction Congestive heart failure (< 1 month) History of inflammatory bowel disease Medical patient at bed rest Age 61-74 Arthroscopic surgery Major open surgery (> 45 min) Laparoscopic surgery (> 45 min) Malignancy Confined to bed (> 72 hours) Immobilizing plaster cast Central venous access Age >= 75 History of VTE Family history of VTE Factor V Leiden Prothrombin [id number] Lupus anticoagulant Anticardiolipin antibodies Elevated serum homocysteine Heparin-induced thrombocytopenia Other congenital or acquired thrombophilia Stroke (< 1 month) Elective arthroplasty Hip, pelvis, or leg fracture Acute spinal cord injury (< 1 month) Prophylaxis Regimen: Total Risk Factor Score Risk Level Prophylaxis Regimen 0-1 Low Early ambulation 2 Moderate Order ONE of the following: *Sequential Compression Device (SCD) *Heparin 5000 units SQ BID 3-4 Higher Order ONE of the following medications: *Heparin 5000 units SQ TID *Enoxaparin/Lovenox 40 mg SQ daily (WT < 150 kg, CrCl > 30 mL/min) *Enoxaparin/Lovenox 30 mg SQ daily (WT < 150 kg, CrCl > 10-29 mL/min) *Enoxaparin/Lovenox 30 mg SQ BID (WT < 150 kg, CrCl > 30 mL/min) AND/OR *Sequential Compression Device (SCD) 5 or more Highest Order ONE of the following medications: *Heparin 5000 units SQ TID (Preferred with Epidurals) *Enoxaparin/Lovenox 40 mg SQ daily (WT < 150 kg, CrCl > 30 mL/min) *Enoxaparin/Lovenox 30 mg SQ daily (WT < 150 kg, CrCl > 10-29 mL/min) *Enoxaparin/Lovenox 30 mg SQ BID (WT < 150 kg, CrCl > 30 mL/min) AND *Sequential Compression Device (SCD) Assessment and Plan - Assessment (1) Atypical chest pain Code(s): R07.89 - Other chest pain Status: Acute Plan: The chest pain center. ACS ruled out 3 sets of EKGs and cardiac enzymes. Will be seen and evaluated by Dr. Dany Null. Likely will not complete any further cardiac testing due to recently normal Lexiscan earlier this year. She is appropriately established with Dr. Muir, Dr. Velázquez, and a legal recruiter at [facility]. Further disposition to follow after evaluation by chest pain center legal recruiter Dr. Null. Continue home medications. It is unclear why prescribed Imdur, instructed to discuss with cardiology appointment next week. (2) Hypokalemia Code(s): E87.6 - Hypokalemia Status: Acute Plan: Replacement given in ER. - Plan This patient is extensively followed by Dr. Hfufman and Dr. Castaneda. Her current presentation was atypical may well have been related to the another arrhythmia. She is ruled out for ACS using standard protocol and already had a negative nuclear scan earlier in this year. Further evaluation will not be carried out at this time and she will be referred back to follow-up with Dr. Castaneda on her scheduled appointment of Monday of this week. H&P: Quality - VTE Deep Vein Thrombosis/Pulmonary Embolism Present on Admission: No
[2018-05-06 11:44] VITALS: PULSE 63
--- NOTE | 2018-05-06 14:49 | ECG ---
Date Performed: 05/06/2018 Time Performed: 04:21:24 PTAGE: 57 years EKG: Sinus rhythm NONSPECIFIC T-WAVE ABNORMALITY BORDERLINE ECG No significant change from prior tracing but rhythm ap pears stable PREVIOUS TRACING : 05/06/2018 01.30 DOCTOR: Dany Null Interpretating Date/Time 05/06/2018 14:48:13
--- NOTE | 2018-05-06 14:50 | ECG ---
Date Performed: 05/06/2018 Time Performed: 01:30:51 PTAGE: 57 years EKG: Sinus rhythm NONSPECIFIC T-WAVE ABNORMALITY BORDERLINE ECG Stable rhythm with no significant change PREVIOUS TRACING : 05/05/2018 21.35 DOCTOR: Dany Null Interpretating Date/Time 05/06/2018 14:48:48
--- NOTE | 2018-05-06 14:51 | ECG ---
Date Performed: 05/05/2018 Time Performed: 21:35:22 PTAGE: 57 years EKG: Sinus rhythm Nonspecific T wave changes but largely unchanged from prior tracing PREVIOUS TRACING : 11/03/2017 22.50 DOCTOR: Dany Null Interpretating Date/Time 05/06/2018 14:50:41
== END 2018-05-06 14:28 | disposition home or self-care (01) ==
LOC: NEDA 21:08 → NEPE 21:08 → NEPFCDU 05-06 02:38
PROVIDERS: ADMIT Internal Medicine Interventional Cardiology; ATTEND Internal Medicine Interventional Cardiology
DX: R07.89 Other chest pain; R06.00 Dyspnea, unspecified; R59.9 Enlarged lymph nodes, unspecified; H53.8 Other visual disturbances; I48.0 Paroxysmal atrial fibrillation; R40.2410 Glasgow coma scale score 13-15, unspecified time; K44.9 Diaphragmatic hernia without obstruction or gangrene; R11.0 Nausea; R29.700 NIHSS score 0; Z79.01 Long term (current) use of anticoagulants; R20.0 Anesthesia of skin; E87.6 Hypokalemia; Z82.49 Family history of ischemic heart disease and other diseases of the circulatory system; E78.5 Hyperlipidemia, unspecified; Z79.899 Other long term (current) drug therapy; I25.10 Atherosclerotic heart disease of native coronary artery without angina pectoris; Z86.73 Personal history of transient ischemic attack (TIA), and cerebral infarction without residual deficits; R05 Cough; I10 Essential (primary) hypertension